=== PATIENT | female | born 1990 | race Caucasian/White ===

== ENCOUNTER 2017-02-05 11:00 | Inpatient (IN) | payer MEDICAID ==
[~2017-02-05 11:00] MED LIST: Cyanocobalamin (Vitamin B12) 1,000 MCG/ML SDV IM ONE; Glycopyrrolate 0.2 MG/ML 2 ML SDV IVPUSH ONE; Lactated Ringers 1,000 ML IV SCH; MVI, Adult with Vitamin K 10 ML, Thiamine 200 MG, Chromium/Copper/Mang/Selen/Zn 1 ML in... IV ONE; Meropenem 500 MG in Sodium Chloride 0.9% 50 ML IV ONE
[2017-02-05] MEDS ORDERED: Lactated Ringers 1,000 ML IV SCH (13:30)
[2017-02-05] MEDS ORDERED: Cyanocobalamin (Vitamin B12) 1,000 MCG/ML SDV IM ONE (13:30)
[2017-02-05] MEDS ORDERED: MVI, Adult with Vitamin K 10 ML, Thiamine 200 MG, Chromium/Copper/Mang/Selen/Zn 1 ML in... IV ONE ×4 (14:15)
[2017-02-05] MEDS ORDERED: Meropenem 500 MG in Sodium Chloride 0.9% 50 ML IV ONE (15:00)
[2017-02-05] MEDS ORDERED: Glycopyrrolate 0.2 MG/ML 2 ML SDV IVPUSH ONE (15:00)
[2017-02-05] MEDS ORDERED: Midazolam 1 MG/ML 2 ML SDV ONE (15:35)
[2017-02-05] MEDS ORDERED: fentaNYL 100 MCG/2 ML SDV ONE (15:35)
[2017-02-05] MEDS ORDERED: Propofol 200 MG/20 ML SDV ONE (15:35)
[2017-02-05] MEDS ORDERED: Albuterol/Ipratropium 3.0-0.5 MG/3 ML Neb Soln INH PRN (16:51)
[2017-02-05] MEDS: Pantoprazole 40 MG Vial IV SCH (17:57)
[2017-02-05] MEDS: Ondansetron 4 MG/2 ML SDV IV PRN (19:13)
[2017-02-05] MEDS ORDERED: Naloxone 0.4 MG/ML SDV IVPUSH PRN (20:19)
[2017-02-05] MEDS ORDERED: Zolpidem 5 MG Tab PO ONE (21:00)
[2017-02-05] MEDS: HYDROmorphone/Normal Saline 15 MG/30 ML PCA IV PRN (21:08)
[2017-02-05] MEDS: ClonazePAM 0.5 MG Tab PO SCH (21:08)
[2017-02-05] MEDS: Mirtazapine 15 MG Tab PO SCH (21:08)
[2017-02-05] MEDS: QUEtiapine 100 MG Tab PO SCH (21:08)
[2017-02-06] MEDS: Dextrose 5%-Lactated Ringers 1,000 ML IV SCH ×4 (00:40→22:55)
[2017-02-06] MEDS ORDERED: Naloxone 0.4 MG/ML SDV IV PRN (07:19)
[2017-02-06] MEDS ORDERED: Propofol 200 MG/20 ML SDV ONE (07:56)
[2017-02-06] MEDS ORDERED: Neostigmine Methylsulfate 1 MG/ML 5 ML Syringe ONE (07:56)
[2017-02-06] MEDS ORDERED: Dexamethasone 4 MG/ML SDV ONE (07:56)
[2017-02-06] MEDS ORDERED: Rocuronium 50 MG/5 ML Vial ONE ×2 (07:56→09:02)
[2017-02-06] MEDS ORDERED: Succinylcholine 200 MG/10 ML MDV ONE (07:56)
[2017-02-06] MEDS ORDERED: Glycopyrrolate 0.2 MG/ML 5 ML MDV ONE (07:56)
[2017-02-06] MEDS ORDERED: Ondansetron 4 MG/2 ML SDV ONE ×2 (07:56→21:51)
[2017-02-06] MEDS: ClonazePAM 0.5 MG Tab PO SCH ×3 (08:14→21:47)
[2017-02-06] MEDS ORDERED: Mirtazapine 15 MG Tab PO SCH (09:00)
[2017-02-06] MEDS ORDERED: Lactated Ringers 0 ML ONE (09:47)
--- NOTE | 2017-02-06 10:47 | HP ---
HISTORY: Gayathri had an EGD yesterday and she was a direct admit. She has a gastrogastric fistula. She had a laparoscopic partial gastrectomy on 08/21/2014. Her consult weight was 190.2, preop weight was 184, and her weight today is 118 pounds 6.4 ounces. Total weight loss of 71.8 pounds. Gayathri did have a partial gastrectomy on 08/21/2014 and due to change in her insurance, she had to switch to [facility] and was under the care of Dr. Dorsey. Gayathri was last seen at the [facility] on 08/21/2014. She states that she had two EGDs with dilatation, one in [place], and one in [place]. After the EGD in [place], she developed a perforation. She was sent to [facility] in [place], [place]. Dr. Dorsey patched the leak and she was discharged with TPN. She persisted to have problems with mid upper abdominal pain and nausea along with dysphagia. A CT scan on 12/25/2016 revealed a gastrogastric fistula. She had an EGD by Adelso Crane M.D. on 02/05/2017 and was directly admitted to the hospital for IV fluids and scheduled for surgery today 02/06/2017. CURRENT MEDICATIONS: Include Remeron 15 mg daily, Seroquel 25 mg 1-4 tabs at bedtime, Ambien 10 mg 0.5-1 tab at bedtime, Klonopin 0.5 one tablet three times a day, ferrous sulfate 325 mg by mouth twice a day, vitamin D 5000 international units a day, Nexplanon implant, Tums one tablet once a day, hydrocortisone 2.5% cream apply twice daily, Citrucel powder 1 tablespoon by mouth twice a day, Pepcid 40 mg per 5 mL, one 5 mL by mouth twice a day, Zofran 4 mg ODT every 8 hours p.r.n. nausea, multivitamin liquid twice a day, and ProAir inhaler 1-2 puffs into lungs every 4 hours. PAST MEDICAL HISTORY: 1. Adjustment disorder with mixed anxiety and depressed mood. 2. Bezoar. 3. Esophageal reflux. 4. Family history of hemochromatosis and she is a carrier. 5. Fibromyalgia. 6. Gastroparesis history. 7. History of chlamydia. 8. History of recurrent UTI. 9. Inappropriate sinus tachycardia. 10.Irritable bowel syndrome. 11.Polycystic ovary disease. 12.Suicide attempt. PAST SURGICAL HISTORY: 1. Abdominal exploratory, 05/24/2011. 2. Colonoscopy 10/09/2013. 3. EGDs x3, 06/06/2012, 04/17/2013, and 06/09/2011. 4. Gastric fundoplication 08/05/2009. 5. Gastroscopy with dilatation, 10/13/2014, 11/05/2014. 6. Laparoscopic cholecystectomy 05/20/2009. 7. Tarsal tunnel release on the left, 04/20/2012. 8. Tooth extraction 07/25/2010. SOCIAL HISTORY: , employed, non-applicable, and no children. FAMILY HISTORY: Mother, hypertension, diabetes, neuropathy, irritable bowel syndrome, and liver disease including hemochromatosis and cirrhosis. Paternal grandmother, colon cancer. Paternal uncle, leukemia. Maternal grandmother, cardiovascular disease and mother have a history of cardiovascular disease and a stroke. HABITS: Does not smoke. Drinks coffee or soda occasionally. No alcohol. REVIEW OF SYSTEMS: CONSTITUTIONAL: No fever or night sweats. She does feel tired, fatigued, generally weak, weight loss, and loss of appetite. SKIN: Negative for rashes or skin lesion. HEENT: Denies headaches, ear pain, loss of hearing, blurred or double vision, nasal discharge, or sore throat. CARDIOVASCULAR: She does have a history of inappropriate sinus tachycardia but no recent episodes. Denies any chest pain or palpitations. RESPIRATORY: Negative for cough or shortness of breath. ENDOCRINE: States her blood sugars have been in the 200s lately and she has been checking them when she feels funny. No history of polyuria, polydipsia, skin or hair changes, heat or cold intolerance. HEMATOLOGICAL: History of low ferritin. LYMPHATICS: Denies any lymph node tenderness or swelling. : History of polycystic ovary syndrome. MUSCULOSKELETAL: Joint and muscle pain. History of fibromyalgia. NEUROLOGICAL: No history of focal changes, spells, or memory changes. PSYCHIATRIC: Depression and history of suicide attempts. Review of systems negative for any other pertinent positives or negatives. DIET: Step 2-3 protein add adequate. Exercise none. Fluids about 24 ounces a day. Vitamins, take all of her vitamins except the B12 injections. OBJECTIVE: GENERAL: Gayathri is a pleasant 26-year-old female. VITAL SIGNS: Height is 5 feet 2 inches. Weight is 116 pounds. TPR is 98.6, 86, 18, blood pressure 97/60. HEENT: Negative. NECK: Supple. HEART: Regular rate and rhythm. LUNGS: Clear. ABDOMEN: Tenderness noted in the mid epigastric area. EXTREMITIES: Without edema. SKIN: Without rash. Hair is very thin. NEUROLOGIC: Cranial nerves 2 through 12 intact. MUSCULOSKELETAL: Deep tendon reflexes are 2+ and equal. PSYCHIATRIC: Mood and affect appropriate. Orientated x3 and memory intact. ASSESSMENT: 1. Gastrogastric fistula. 2. Partial gastrectomy. 3. Postoperative malabsorption. 4. Vitamin D deficiency. 5. Dysphagia. 6. Adjustment disorder with mixed anxiety and depression. 7. Carrier for hemochromatosis. 8. Fibromyalgia. 9. Irritable bowel syndrome. 10.Polycystic ovary syndrome. PLAN: Remain n.p.o. and she is scheduled for an exploratory laparoscopic, possible laparotomy with resection of gastrogastric fistula, general anesthesia. Date of surgery 02/06/2017. Adelso Crane M.D. Based on today's exam, patient is cleared for general anesthesia. Louisa Arora PA-C /[id number]
[2017-02-06] MEDS ORDERED: Meropenem 500 MG in Sodium Chloride 0.9% 50 ML IV ONE (11:00)
[2017-02-06] MEDS ORDERED: Albuterol/Ipratropium 3.0-0.5 MG/3 ML Neb Soln INH ONE (11:00)
--- NOTE | 2017-02-06 11:50 | OR ---
DATE OF PROCEDURE: 02/05/2017 PREOPERATIVE DIAGNOSIS: Recent bilious emesis associated with gastrogastric fistula. POSTOPERATIVE DIAGNOSIS: Recent bilious emesis associated with gastrogastric fistula. OPERATIVE PROCEDURE: Upper GI endoscopy. ANESTHESIA: IV sedation. INDICATIONS FOR PROCEDURE: The patient presents with some ongoing bilious emesis and dysphasia along with epigastric discomfort. She was noted recently to have a gastrogastric fistula both by CT scan and upper GI x-ray in [place] and presents today for further evaluation and a decision making regarding management options. Potential risks including bleeding and perforation were discussed, and the patient wishes to proceed. DETAILS OF PROCEDURE: The patient was taken to the operating room and placed in a left lateral decubitus position. IV sedation was administered, after which the upper GI endoscope was passed orally through the length of the esophagus and into the gastric pouch, from there through the gastrojejunostomy roughly 20 cm into the Lorna limb. The patient was noted to have normal hypopharynx, larynx, upper esophageal sphincter, and esophageal body. There was some bilious material within the distal most esophagus and gastric pouch, and a visible gastrogastric fistula was present somewhat proximal to the remained gastrojejunostomy. The scope was able to just barely pass through that into the remainder of the bypassed stomach. The orifice of this fistula was quite reddened, consistent with bile reflux. The scope was then withdrawn, the above findings reconfirmed, and the procedure concluded. There were no evident complications. Given the patient's degree of symptoms at this point, she will be admitted for resection of the gastrogastric fistula tomorrow. This will most likely be able to done laparoscopically. Adelso Crane MD /[id number]
[2017-02-06] MEDS ORDERED: Ketamine 500 MG/5 ML MDV IV SCH (12:00)
[2017-02-06] MEDS ORDERED: Lidocaine 0.4%/D5W 2 GM/500 ML BAG IV SCH (12:00)
[2017-02-06] MEDS ORDERED: Lidocaine 2% 100 MG/5 ML Syringe IVPUSH ONE (12:00)
[2017-02-06] MEDS ORDERED: Ropivacaine 26 ML, Dexamethasone 8 MG, EPINEPHrine 0.4 MG, Sodium Chloride 0.9% 51.6 ML NERVRT SCH ×4 (12:00)
[2017-02-06] MEDS ORDERED: Meropenem 500 MG SDV ONE (12:13)
[2017-02-06] MEDS ORDERED: Lactated Ringers 1,000 ML ONE ×2 (12:52)
[2017-02-06] MEDS ORDERED: Sugammadex Sodium 200 MG/2 ML VIAL ONE (13:35)
[2017-02-06] MEDS ORDERED: Albuterol/Ipratropium 3.0-0.5 MG/3 ML Neb Soln INH PRN (15:00)
[2017-02-06] MEDS ORDERED: hydrOXYzine HCl 100 MG/2 ML SDV IM PRN (15:00)
[2017-02-06] MEDS ORDERED: Labetalol 20 MG/4 ML Syringe IVPUSH PRN (15:00)
[2017-02-06] MEDS ORDERED: diphenhydrAMINE 50 MG/ML SDV IVPUSH PRN (15:00)
[2017-02-06] MEDS ORDERED: SCOPOLAMINE PATCH CHECK TOP SCH (15:00)
[2017-02-06] MEDS ORDERED: SCOPOLAMINE PATCH ASK TOP SCH (15:00)
[2017-02-06] MEDS: Albuterol/Ipratropium 3.0-0.5 MG/3 ML Neb Soln INH SCH ×2 (15:18→20:57)
[2017-02-06] MEDS: Ondansetron 4 MG/2 ML SDV IV PRN ×2 (15:18→21:52)
[2017-02-06] MEDS ORDERED: LORazepam 2 MG/ML MDV IVPUSH PRN (16:13)
[2017-02-06] MEDS: MVI, Adult with Vitamin K 10 ML, Thiamine 200 MG, Chromium/Copper/Mang/Selen/Zn 1 ML in... IV SCH ×4 (16:30)
[2017-02-06] MEDS: Acetaminophen 325 MG Tab PO SCH ×2 (16:51→21:37)
[2017-02-06] MEDS: Gabapentin 300 MG Cap PO SCH ×2 (16:51→21:38)
[2017-02-06] MEDS: Pantoprazole 40 MG Vial IV SCH (17:25)
[2017-02-06] MEDS: Meropenem 500 MG in Sodium Chloride 0.9% 50 ML IV SCH ×2 (17:29→22:55)
[2017-02-06] MEDS: Heparin Sodium 5,000 Units/ML Vial SUBCUT SCH (17:36)
[2017-02-06] MEDS ORDERED: Albuterol/Ipratropium 3.0-0.5 MG/3 ML Neb Soln ONE (20:56)
[2017-02-06] MEDS: QUEtiapine 100 MG Tab PO SCH (21:38)
[2017-02-06] MEDS: Mirtazapine 15 MG Tab PO SCH (21:38)
[2017-02-06] MEDS ORDERED: ClonazePAM 0.5 MG Tab ONE (21:46)
[2017-02-07] MEDS ORDERED: Iohexol 647 MG/ML 50 ML SDV PO STA (02:40)
[2017-02-07] MEDS: Acetaminophen 325 MG Tab PO SCH ×4 (05:03→21:54)
[2017-02-07] MEDS: Meropenem 500 MG in Sodium Chloride 0.9% 50 ML IV SCH (05:41)
[2017-02-07] MEDS: Gabapentin 300 MG Cap PO SCH (05:42)
[2017-02-07] MEDS: Heparin Sodium 5,000 Units/ML Vial SUBCUT SCH ×2 (05:43→17:07)
[2017-02-07] MEDS: Albuterol/Ipratropium 3.0-0.5 MG/3 ML Neb Soln INH SCH ×4 (07:22→21:54)
[2017-02-07] MEDS ORDERED: Dextrose 5%-Lactated Ringers 1,000 ML IV SCH (07:54)
[2017-02-07] MEDS: Celecoxib 200 MG Cap PO SCH (08:22)
[2017-02-07] MEDS: ClonazePAM 0.5 MG Tab PO SCH ×3 (08:24→21:54)
--- NOTE | 2017-02-07 08:32 | CR ---
Surgical drains. No contrast leakage.
--- NOTE | 2017-02-07 09:33 | PN ---
DATE OF SERVICE: 02/07/2017 SUBJECTIVE: Gayathri is postop day #1. Her vital signs have been stable. She had some nausea initially postoperatively. Her lidocaine was discontinued. She did well after that. She has been up and ambulated. REVIEW OF SYSTEMS: Remainder of review of systems negative for any pertinent positives and negatives. OBJECTIVE: GENERAL: Gayathri Capps is a pleasant 26-year-old female. She is alert and orientated. VITAL SIGNS: TPR 99.8, 124, 16, and blood pressure is 115/67. HEENT: Negative. NECK: Supple. HEART: Regular rate and rhythm. LUNGS: Clear. ABDOMEN: Dressings dry and intact. RENETTA drain is draining 150 mL for the past 24 hours of a light pink serosanguineous drainage. She does have some debris in the bulb, looks like tissue. EXTREMITIES: Without peripheral edema. ASSESSMENT: Diagnostic laparoscopy with partial gastrectomy with Lorna-en-Y gastrojejunostomy for resection of the gastrogastric fistula, for gastrogastric fistula with associated severe bile reflux and aspiration. Date of surgery 02/06/2017. PLAN: 1. Step-2 gastric bypass diet without cereal. 2. Discontinue gabapentin. 3. Decrease IV rate to 100 mL/hour. 4. Dressing off. 5. May shower. 6. We will evaluate p.r.n. or in a.m. Louisa Arora PA-C /[id number]
--- NOTE | 2017-02-07 11:06 | OR ---
DATE OF PROCEDURE: 02/06/2017 ADDENDUM: Physician educational assistant teacher, Louisa Arora, played an essential role in assisting in this case, helping to position the patient, retract structures as needed as well as suturing and cutting sutures as indicated. Her presence improved patient safety and decreased operative time. Adelso Crane MD /[id number]
--- NOTE | 2017-02-07 13:15 | OR ---
DATE OF PROCEDURE: 02/06/2017 PREOPERATIVE DIAGNOSES: Gastrogastric fistula with associated severe bile reflux and intermittent aspiration. POSTOPERATIVE DIAGNOSES: Gastrogastric fistula with associated severe bile reflux and intermittent aspiration. OPERATIVE PROCEDURES: Diagnostic laparoscopy with partial gastrectomy with Lorna-en-Y gastrojejunostomy for resection of gastrogastric fistula ([id number]). ANESTHESIA: General. CRIB PAD MAKER: Louisa Arora PA-C. INDICATIONS FOR PROCEDURE: This is a 26-year-old female presenting with increasingly symptomatic gastrogastric fistula. This has been confirmed by both upper GI endoscopy, as well as CT scan. Plan is to proceed with a diagnostic laparoscopy, laparotomy if necessary, and resection of the stomach. The patient has the fistula located just proximal to the gastrojejunostomy, and the plan will be to proceed with resection of that area, which will also require some visual reconstruction of the gastrojejunostomy. The potential risks including bleeding, infection, leaks from various GI tract closures, problems with bowel obstruction over time, as well as possibility of recurrence of the problem were reviewed, and also the patient has some propensity to having nausea and emesis, and it may not entirely eliminate that problem. DETAILS OF PROCEDURE: The patient was taken to the operating room and placed in a supine position. After general endotracheal anesthesia was induced, she was converted to a lithotomy position, and the abdomen was prepped and draped. Orogastric tube was placed, and using continuous ultrasound guidance, bilateral subcostal transversus abdominis plane blocks were placed using standard formula. At this point, the abdomen was entered at 15 cm inferior, 5 cm left of xiphoid process, the peritoneal cavity entered under direct vision with an Optiview trocar and inflated to 15 mmHg pressure with CO2. Laparoscope was then reinserted. No underlying trocar insertion site injuries were seen. Following this, 5 additional trocars were placed across the upper mid abdomen, and general exploration was undertaken. The patient had some loose adhesions between the area of the upper Lorna limb and gastrojejunostomy and somewhat denser adhesions along the upper aspect of the gastric pouch. At this point, to guide treatment, the orogastric tube was replaced with a 32-Maori Santi tube, which was passed orally per Anesthesia, through the gastric pouch and the Lorna limb several centimeters. This allowed stapling along the gastric pouch without causing over-narrowing during the subsequent resection. Additionally, the stomach was dissected into the lesser sac, somewhat to the left of the gastrojejunostomy. This then allowed division of the stomach up to the plane of the diaphragm. This then allowed upward mobility of the stomach as it lay up against the area of the gastric bypass. This was retracted upward and dissection then began along the edge of the gastric pouch with the SHAMIR black loads that were used for the remainder of the primary resection, being pulled up snugly against the Santi tube. This eventually resulted in resection of the remaining stomach adherent to the gastric bypass anatomy. This specimen was then delivered from the field. There was some question of some possible weakness of the gastrojejunostomy on the left aspect, and that area was then revised again with the Santi tube, that being present from the gastrojejunostomy into the Lonra limb to avoid over- tightening. This was done with two additional firings of the SHAMIR wiley, and the two specimens were then delivered from the field. At this point, fibrin sealant was placed along the gastric and small bowel staple lines and omentum applied up against the staple lines as well. The Santi tube was then removed without difficulty. At that point, no further problems were noted. The trocars were sequentially removed and a single Torito- Chacon drain was placed through the left lateral trocar site and positioned adjacent to the gastrojejunostomy and up into the splenic fossa. After the remaining trocars were removed, the fascia was closed with 0 Vicryl stitch of the left lateral trocar site and the skin was closed at each incision with 4-0 Vicryl skin stitch. Dressing was applied. The patient was taken to the recovery room in satisfactory condition. Adelso Crane MD /[id number]
[2017-02-07] MEDS: HYDROmorphone/Normal Saline 15 MG/30 ML PCA IV PRN (17:00)
[2017-02-07] MEDS: Pantoprazole 40 MG Tab.CR PO SCH (17:07)
[2017-02-07] MEDS: MVI, Adult with Vitamin K 10 ML, Thiamine 200 MG, Chromium/Copper/Mang/Selen/Zn 1 ML in... IV SCH ×4 (17:07)
--- NOTE | 2017-02-07 17:47 | PCM.CONS ---
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 She had an uneventful surgery but her postop course was complicated by persistent nausea and vomiting which has finally subsided. Starting about 6 PM yesterday she had a rise in her heart rate from the 80s/90s up into the 100 teens and as high as 130s at times. She has been asymptomatic with this and does not report dizziness , lightheadedness, shortness of breath or chest pain. Her abdominal pain has been well-controlled throughout the day today. She does not feel anxious. She reports a history of similar problems around times of stress. She has been evaluated by a color stripper who felt that no additional medication was needed as these episodes resolve on their own. She has not had recent difficulties with palpitations or tachycardia. There is no evidence for infection at this time. Epigastric Pain Score (Numeric/FACES): 9 Abdomen Pain Score (Numeric/FACES): 6 - Related Data Allergies/Adverse Reactions: Allergies Allergy/AdvReac Type Severity Reaction Status Date / Time amoxicillin [Amoxicillin] Allergy Unknown Rash Verified 05/27/16 16:41 Penicillins Allergy Unknown Rash Verified 05/27/16 16:41 Aminoglycosides Allergy Cannot Verified 02/02/17 09:39 Remember levofloxacin Allergy Rash Verified 05/27/16 16:41 metoclopramide [From Reglan] Allergy Cannot Verified 02/02/17 09:39 Remember prochlorperazine edisylate AdvReac Intermediate Tachycardia Verified 05/27/16 16 :41 [From Compazine] prochlorperazine maleate AdvReac Intermediate Tachycardia Verified 05/27/16 16: 41 [From Compazine] cephalexin monohydrate AdvReac Unknown Vomiting Verified 05/27/16 16:41 [From Keflex] erythromycin base AdvReac Unknown Abdominal Verified 05/27/16 16:41 [Erythromycin Base] Pain Home Medications: Home Meds Ondansetron HCl [Ondansetron] 4 mg PO Q8HR PRN 02/20/13 [History] Albuterol Sulfate [Proair Hfa] 2 puff IH Q4H PRN 04/16/13 [History] clonazePAM [Klonopin] 0.5 mg PO TID PRN 08/14/14 [History] Calcium Citrate/Vitamin D3 [Calcium Citrate - Vit D Caplet] 1 tab PO BID [History] Cyanocobalamin (Vitamin B12) [Vitamin B12] 1,000 mcg SL DAILY 11/04/14 [History] Multivitamin with Minerals [Multiple Vitamin] 1 tab PO BID 11/04/14 [History] Vitamin B Complex [B Complex] 1 tab PO DAILY 01/29/15 [History] Etonogestrel [Nexplanon] 1 dose SQ ASDIRECTED 03/31/16 [History] Zolpidem [Ambien] 10 mg PO BEDTIME 03/31/16 [History] Famotidine 40 mg PO DAILY #14 tablet 05/27/16 [Rx] Calcium Carbonate [Tums] 500 mg PO DAILY 02/02/17 [History] Cholecalciferol (Vitamin D3) [Vitamin D3] 5,000 units PO DAILY 02/02/17 [History ] Ferrous Sulfate 325 mg PO BID 02/02/17 [History] Hydrocortisone [Hydrocortisone 2.5% Crm] 1 applic TOP BID PRN 02/02/17 [History] Methylcellulose (with Sugar) [Citrucel] 1 tbsp PO BID 02/02/17 [History] Mirtazapine [Remeron] 7.5 - 15 mg PO BID 02/02/17 [History] QUEtiapine [SEROquel] 25 - 100 ng PO BEDTIME 02/02/17 [History] Past Medical History HEENT History: Reports: Allergic Rhinitis, Other (See Below) Other HEENT History: enlarged optic nerve Cardiovascular History: Reports: Arrhythmia, Other (See Below) Other Cardiovascular History: tachycardia; PVC's Respiratory History: Reports: Asthma, Sleep Apnea Gastrointestinal History: Reports: Colon Polyp, Hemorrhoids, Hiatal Hernia, Pancreatitis, Other (See Below) Other Gastrointestinal History: ulcers Genitourinary History: Reports: Renal Calculus, Retention, Urinary, Other (See Below) Other Genitourinary History: PCOS PROJECT HIRE History: Reports: Polycystic Ovaries Musculoskeletal History: Reports: Fracture, Fibromyalgia Neurological History: Reports: Concussion Psychiatric History: Reports: Anxiety, Depression, Psych Hospitalization(s), PTSD, Suicide Attempt, Other (See Below) Other Psychiatric History: mooddisorder unclasified Endocrine/Metabolic History: Reports: Vitamin D Deficiency, Other (See Below) Other Endocrine/Metabolic History: hypoglycemia Hematologic History: Reports: B12 Deficiency, Iron Deficiency Dermatologic History: Reports: Other (See Below) Other Dermatologic History: skin rashes and acne; abdnormal moles - Infectious Disease History Infectious Disease History: Reports: Chicken Pox, Influenza - Past Surgical History HEENT Surgical History: Reports: None Cardiovascular Surgical History: Reports: Other (See Below) Other Cardiovascular Surgeries/Procedures: ECHO Respiratory Surgical History: Reports: None GI Surgical History: Reports: Bariatric Procedure, Cholecystectomy, Colonoscopy , EGD, Esophageal Dilatation, Hernia Repair/Other, Felix Fundoplication, Polypectomy, Other (See Below) Female Surgical History: Reports: None Endocrine Surgical History: Reports: None Neurological Surgical History: Reports: None Musculoskeletal Surgical History: Reports: None Dermatological Surgical History: Reports: Skin Biopsy Social & Family History - Family History Cardiac: Reports: CAD Endocrine/Metabolic: Reports: Diabetes, type II - Tobacco Use Smoking Status *Q: Former Smoker Years of Tobacco use: 5 Packs/Tins Daily: 0.3 Used Tobacco, but Quit: No Month Tobacco Last Used: 08/2016 Second Hand Smoke Exposure: No - Caffeine Use Caffeine Use: Reports: Soda - Alcohol Use Days Per Week of Alcohol Use: 0 Number of Drinks Per Day: 1 Total Drinks Per Week: 0 - Recreational Drug Use Recreational Drug Use: No H&P Review of Systems - Review of Systems: Review Of Systems: See Below Free Text/Narrative: A complete 12 point review of systems was obtained. Pertinent positives and negatives are noted in the history of present illness. All other systems were reviewed and were negative except as noted. Exam - Exam Exam: See Below - Vital Signs Vital Signs: Last Vital Signs Temp 38.1 C 02/07/17 16:21 Pulse 115 H 02/07/17 16:21 Resp 20 02/07/17 16:21 BP 106/64 02/07/17 16:21 Pulse Ox 97 02/07/17 16:21 Weight: 52.889 kg - Exam Quality Assessment: No: Supplemental Oxygen General: Alert, Oriented, Cooperative. No: Mild Distress HEENT: Conjunctiva Clear, Mucosa Moist & [place]. No: Scleral Icterus Neck: Supple, Trachea Midline Lungs: Clear to Auscultation, Normal Respiratory Effort Cardiovascular: Regular Rhythm, Tachycardia. No: Systolic Murmur GI/Abdominal Exam: Soft, No Distention Back Exam: Full Range of Motion. No: Muscle Spasm Extremities: Normal Inspection, No Pedal Edema. No: Increased Warmth Peripheral Pulses: 2+: Dorsalis Pedis (L), Dorsalis Pedis (R) Skin: Warm, Dry, Intact Neuro Extensive - Mental Status: Alert, Oriented x3, Nl Response to Commands Neuro Extensive - Motor, Sensory, Reflexes: CN II-XII Intact. No: Dysarthria, Abnormal Motor, Tremor Psychiatric: Alert, Normal Affect - Patient Data Imaging Impressions Last 24 hrs: EKG - images personally reviewed - sinus tachycardia with heart rate in the 110' s. No acute ischemic changes Consult PN Assessment/Plan POD#: 2 Procedures: Procedures ASSAY OF ACETAMINOPHEN (07/03/13) ASSAY OF AMYLASE (03/31/16) ASSAY OF CK (CPK) (09/12/13) ASSAY OF DIGOXIN TOTAL (07/03/13) ASSAY OF ETHANOL (07/03/13) ASSAY OF LACTIC ACID (08/14/14) ASSAY OF LIPASE (05/27/16) ASSAY OF PHOSPHORUS (10/13/14) ASSAY OF SALICYLATE (07/03/13) ASSAY OF TROPONIN QUANT (09/12/13) ASSAY THYROID STIM HORMONE (08/05/13) BLOOD CULTURE FOR BACTERIA (01/28/13) C-REACTIVE PROTEIN (05/27/16) CHEST X-RAY 2VW FRONTAL&LATL (08/05/13) CHORIONIC GONADOTROPIN ASSAY (08/20/13) COLONOSCOPY AND BIOPSY (10/09/13) COMPLETE CBC AUTOMATED (05/27/16) COMPLETE CBC W/AUTO DIFF WBC (03/31/16) COMPREHEN METABOLIC PANEL (05/27/16) CT ABD & PELV W/CONTRAST (03/31/16) EGD BIOPSY SINGLE/MULTIPLE (04/17/13) EGD DILATE STRICTURE (11/05/14) ELECTROCARDIOGRAM REPORT (07/03/13) ELECTROCARDIOGRAM TRACING (09/12/13) EMERGENCY DEPT VISIT (05/27/16) EMERGENCY DEPT VISIT (03/31/16) EMERGENCY DEPT VISIT (10/13/14) EMERGENCY DEPT VISIT (10/13/14) EMERGENCY DEPT VISIT (08/28/14) EMERGENCY DEPT VISIT (08/28/14) EMERGENCY DEPT VISIT (08/14/14) EMERGENCY DEPT VISIT (08/14/14) EMERGENCY DEPT VISIT (06/25/14) EMERGENCY DEPT VISIT (06/25/14) EMERGENCY DEPT VISIT (04/08/14) EMERGENCY DEPT VISIT (10/17/13) EMERGENCY DEPT VISIT (10/10/13) EMERGENCY DEPT VISIT (09/12/13) EMERGENCY DEPT VISIT (08/19/13) EMERGENCY DEPT VISIT (08/19/13) EMERGENCY DEPT VISIT (08/05/13) EMERGENCY DEPT VISIT (07/03/13) EMERGENCY DEPT VISIT (02/20/13) FIBRIN DEGRADATION QUANT (02/20/13) HYDRATE IV INFUSION ADD-ON (03/31/16) HYDRATION IV INFUSION INIT (08/28/14) INITIAL OBSERVATION CARE (07/03/13) METABOLIC PANEL TOTAL CA (10/13/14) OBSERVATION CARE DISCHARGE (07/03/13) POLYSOM 6/> YRS 4/> ARLETTE (06/25/13) POLYSOM 6/>YRS CPAP 4/> PARM (07/27/13) PPSV23 VACC 2 YRS+ SUBQ/IM (07/03/13) ROUTINE VENIPUNCTURE (05/27/16) THER/PROPH/DIAG INJ IV PUSH (05/27/16) THER/PROPH/DIAG INJ SC/IM (05/04/14) THER/PROPH/DIAG IV INF ADDON (10/13/14) THER/PROPH/DIAG IV INF INIT (10/13/14) TISSUE EXAM BY PATHOLOGIST (04/17/13) TTE W/DOPPLER COMPLETE (04/27/14) TX/PRO/DX INJ NEW DRUG ADDON (03/31/16) URINALYSIS AUTO W/SCOPE (03/31/16) URINE BACTERIA CULTURE (05/04/14) URINE CULTURE/COLONY COUNT (10/13/14) URINE TEST (08/14/14) X-RAY EXAM OF ABDOMEN (10/10/13) X-RAY EXAM SERIES ABDOMEN (03/31/16) (1) Sinus tachycardia SNOMED Code(s): 51174830 Code(s): R00.0 - TACHYCARDIA, UNSPECIFIED Current Visit: Yes Problem List Initiated/Reviewed/Updated: Yes My Orders Last 24 Hours: My Active Orders 02/07/17 17:40 EKG Documentation Completion [RC] ASDIRECTED EKG 12 Lead [EK] Urgent 02/08/17 05:00 BASIC METABOLIC PANEL,BMP [CHEM] Timed CBC WITH AUTO DIFF [HEME] Timed MAGNESIUM [CHEM] Timed TSH ULTRASENSITIVE [CHEM] Timed Plan: ASSESSMENT AND PLAN - 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 -Postop cares per surgical team Sinus tachycardia - persistent for approximately 24 hours. Patient is asymptomatic. Other vital signs are stable. No evidence for infection. History of similar episodes thought to be stress related. This has resolved on its own and did not improve with beta joycelyn use in the past. One status appears appropriate. Pain is well-controlled. She is not anxious. -Continue cardiac monitoring -No obvious indication for rate slowing at this time -Monitor for evidence of infection or new pulmonary symptoms -Labs in the morning Beck Bloom M.D. Requesting Provider: Louisa Arora Date Consult Requested: 02/07/17 Reason for Consult: sinus tachycardia Patient History Reviewed: Yes Admission H&P Reviewed: Yes Notified Requestor: No Time Spent (in minutes): 40
[2017-02-07] MEDS: Mirtazapine 15 MG Tab PO SCH (21:54)
[2017-02-07] MEDS: QUEtiapine 100 MG Tab PO SCH (21:54)
[2017-02-08] MEDS: Acetaminophen 325 MG Tab PO SCH ×4 (04:19→21:05)
[2017-02-08] MEDS: Heparin Sodium 5,000 Units/ML Vial SUBCUT SCH ×2 (05:38→18:01)
[2017-02-08] MEDS ORDERED: Magnesium Sulfate/Water 2 GM in Premix Bag 1 BAG IV SCH (06:30)
[2017-02-08] MEDS ORDERED: Potassium Chloride 20 MEQ, Lidocaine 1% 2 ML in Sodium Chloride 0.9% 100 ML IV SCH (06:30)
[2017-02-08] MEDS ORDERED: Dextrose 5%-Lactated Ringers 1,000 ML IV SCH (07:15)
[2017-02-08] MEDS: Albuterol/Ipratropium 3.0-0.5 MG/3 ML Neb Soln INH SCH ×2 (07:22→10:55)
[2017-02-08] MEDS ORDERED: Magnesium Hydroxide 400 MG/5 ML Susp 30 ML Cup PO ONE ×2 (08:00→17:00)
[2017-02-08] MEDS: Celecoxib 200 MG Cap PO SCH (08:09)
[2017-02-08] MEDS: Acetaminophen/HYDROcodone 325-5 MG Tab PO PRN ×3 (08:38→22:27)
[2017-02-08] MEDS: Potassium Chloride 20 MEQ, Lidocaine 1% 2 ML in Sodium Chloride 0.9% 100 ML IV SCH ×3 (08:39→12:55)
[2017-02-08] MEDS: ClonazePAM 0.5 MG Tab PO SCH ×3 (08:45→21:04)
[2017-02-08] MEDS ORDERED: Bisacodyl 5 MG Tab PO ONE (09:00)
[2017-02-08] MEDS ORDERED: Cyanocobalamin (Vitamin B12) 1,000 MCG/ML SDV IM ONE (09:00)
--- NOTE | 2017-02-08 10:57 | PN ---
DATE OF SERVICE: 02/08/2017 SUBJECTIVE: Gayathri is postop day 2. She is tolerating her diet well. She did have tachycardia yesterday into the 140s. Beck Bloom MD, hospitalist, did evaluate with a history of inappropriate sinus tachycardia, and it was last evaluated in 2013. It was appropriate to seek an Internal Medicine consultation. EKG was negative. Hemoglobin this morning is 9. Oral intake at 1,130 mL. Vital signs have been stable with the exception of the tachycardia, which of note she was completely asymptomatic. RENETTA drain put out a total of 90 mL of a pink serous drainage. Activity has been good. Remainder of review of systems is negative for any pertinent positives or negatives. This morning, her potassium was 3.5, and magnesium was 1.6. OBJECTIVE: GENERAL: Gayathri Capps is a 26-year-old female. She is alert and orientated. VITAL SIGNS: TPR is 99, 125, 20, and blood pressure 98/59. HEENT: Negative. NECK: Supple. HEART: Regular rate and rhythm. LUNGS: Clear. ABDOMEN: Dressings dry and intact. RENETTA drain intact. EXTREMITIES: Without peripheral edema. ASSESSMENT: 1. 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 Date of surgery, 02/06/2017. 2. Upper GI endoscopy, recent bilious emesis associated with gastrogastric fistula, date 02/05/2017. PLAN: 1. KCl 60 mEq with lidocaine in 3 divided doses. 2. Magnesium 2 g IV q.6 hours. 3. Discontinue FRUIT CANNER. 4. Discontinue continuous pulse oximetry. 5. Discontinue telemetry. 6. Linn 5/325 mg 1 to 2 every 4 hours p.r.n. pain. 7. Milk of magnesia 30 mL now. 8. Dulcolax tablet 20 mg 1 hour after milk of magnesia. 9. IV decreased to TKO. 10.Good pulmonary toilet encouraged. 11.We will evaluate p.r.n. or in a.m. 12.Plan discharge in a.m. Louisa Arora PA-C /[id number]
--- NOTE | 2017-02-08 11:11 | PCM.CONSN ---
- General Info Date of Service: 02/08/17 Functional Status: Reports: Pain Controlled, Tolerating Diet, Ambulating - Review of Systems General: Denies: Weakness Cardiovascular: Denies: Chest Pain, Palpitations Systems Review Comment:: No acute events overnight. Patient feels well with minimal abdominal pain. No fevers. Up and walking around. No chest pain, palpitations or shortness of breath. - Patient Data Vitals - Most Recent: Last Vital Signs Temp 37.2 C 02/08/17 08:12 Pulse 104 H 02/08/17 10:55 Resp 20 02/08/17 08:12 BP 98/59 L 02/08/17 08:12 Pulse Ox 98 02/08/17 10:55 Weight - Most Recent: 52.889 kg I&O - Last 24 Hours: Intake & Output 02/07/17 02/08/17 02/08/17 22:59 06:59 14:59 Intake Total 1877 1327 Output Total 1400 590 Balance 477 737 Lab Results Last 24 Hours: Laboratory Results - last 24 hr 02/08/17 02/08/17 Range/Units 04:45 04:45 WBC 10.0 (4.5-11.0) K/uL RBC 2.98 L (3.30-5.50) M/uL Hgb 9.0 L D (12.0-15.0) g/dL Hct 27.4 L (36.0-48.0) % MCV 92 (80-98) fL MCH 30 (27-31) pg MCHC 33 (32-36) % Plt Count 211 (150-400) K/uL Neut % (Auto) 73 H (36-66) % Lymph % (Auto) 16 L (24-44) % [place] % (Auto) 11 H (2-6) % Eos % (Auto) 1 L (2-4) % Baso % (Auto) 0 (0-1) % Sodium 141 (140-148) mmol/L Potassium 3.5 L (3.6-5.2) mmol/L Chloride 108 (100-108) mmol/L Carbon Dioxide 29 (21-32) mmol/L Anion Gap 7.5 (5.0-14.0) mmol/L BUN 4 L D (7-18) mg/dL Creatinine 0.5 L (0.6-1.0) mg/dL Est Cr Clr Drug Dosing 134.86 mL/min Estimated GFR (MDRD) > 60 (>60) Glucose 87 (74-106) mg/dL Calcium 8.4 L (8.5-10.1) mg/dL Magnesium 1.6 L (1.8-2.4) mg/dL TSH, Ultra Sensitive 1.342 (0.358-3.740) uIU/mL Med Orders - Current: Current Medications Acetaminophen (Tylenol) 650 mg PO Q6H [facility] Last Admin: 02/08/17 09:02 Dose: 650 mg Hydrocodone Bitart/Acetaminophen ([place] 325-5 Mg) 1 - 2 tab PO Q4H PRN PRN Reason: Pain Last Admin: 02/08/17 08:38 Dose: 2 tab Albuterol/Ipratropium (Duoneb 3.0-0.5 Mg/3 Ml) 3 ml INH QIDRT [facility] Last Admin: 02/08/17 10:55 Dose: 3 ml Celecoxib (Celebrex) 200 mg PO DAILY@0800 [facility] Last Admin: 02/08/17 08:09 Dose: 200 mg Clonazepam (Klonopin) 0.5 mg PO TID [facility] Last Admin: 02/08/17 08:45 Dose: 0.5 mg Diphenhydramine HCl (Benadryl) 25 - 50 mg IVPUSH Q4H PRN PRN Reason: ITCHING Heparin Sodium (Porcine) (Heparin Sodium) 5,000 units SUBCUT Q12H [facility] Last Admin: 02/08/17 05:38 Dose: 5,000 units Hydroxyzine HCl (Vistaril) 75 - 100 mg IM Q4H PRN PRN Reason: PAIN UNCONTROLLED BY LIDOCAINE Last Admin: 02/06/17 18:05 Dose: 100 mg Dextrose/Lactated Ringer's (Dextrose 5%-Lactated Ringers) 1,000 mls @ 100 mls/ hr IV ASDIRECTED [facility] Last Admin: 02/08/17 08:57 Dose: 100 mls/hr Magnesium Sulfate 2 gm/ Sodium (Chloride) 54 mls @ 27 mls/hr IV Q6H [facility] Stop: 02/11/17 04:29 Last Admin: 02/08/17 08:39 Dose: 27 mls/hr Dextrose/Lactated Ringer's (Dextrose 5%-Lactated Ringers) 1,000 mls @ 75 mls/ hr IV ASDIRECTED [facility] Potassium Chloride 20 meq/Lidocaine HCl 2 ml/ Sodium Chloride 112 mls @ 55 mls/ hr IV Q2H [facility] Stop: 02/08/17 14:29 Last Admin: 02/08/17 08:39 Dose: 55 mls/hr Multivitamins/Minerals 10 ml/Thiamine HCl 200 mg/ Chromium/Copper/Manganese/ Seleni/Zn 1 ml/ Dextrose/Lactated Ringer's 1,013 mls @ 75 mls/hr IV DAILY@1600 [facility] Labetalol HCl (Normodyne) 5 - 15 mg IVPUSH Q1H PRN PRN Reason: SBP over 160 OR DBP over 95 Lorazepam (Ativan) 0.5 - 1 mg IVPUSH Q2H PRN PRN Reason: Nausea/Vomiting Last Admin: 02/06/17 16:30 Dose: 0.5 mg Mirtazapine (Remeron) 15 mg PO BEDTIME [facility] Last Admin: 02/07/17 21:54 Dose: 15 mg Naloxone HCl (Narcan) 0.1 mg IV ASDIRECTED PRN PRN Reason: decreased respiratory rate Ondansetron HCl (Zofran) 4 mg IV Q4H PRN PRN Reason: N/V Last Admin: 02/06/17 21:52 Dose: 4 mg Pantoprazole Sodium (Protonix) 40 mg PO Q24H [facility] Last Admin: 02/07/17 17:07 Dose: 40 mg Quetiapine Fumarate (Seroquel) 100 mg PO BEDTIME [facility] Last Admin: 02/07/17 21:54 Dose: 100 mg Discontinued Medications Albuterol/Ipratropium (Duoneb 3.0-0.5 Mg/3 Ml) 3 ml INH Q4H PRN PRN Reason: Shortness of Breath Albuterol/Ipratropium (Duoneb 3.0-0.5 Mg/3 Ml) 3 ml INH ONCALL ONE Stop: 02/06/17 11:01 Last Admin: 02/06/17 11:37 Dose: 3 ml Albuterol/Ipratropium (Duoneb 3.0-0.5 Mg/3 Ml) 3 ml INH ASDIRECTED PRN PRN Reason: BREATHING Albuterol/Ipratropium (Duoneb 3.0-0.5 Mg/3 Ml) Confirm Administered Dose 3 ml .ROUTE .STK-MED ONE Stop: 02/06/17 20:57 Last Admin: 02/07/17 10:58 Dose: Not Given Bisacodyl (Dulcolax) 20 mg PO ONETIME ONE Stop: 02/08/17 09:01 Last Admin: 02/08/17 08:46 Dose: 20 mg Clonazepam (Klonopin) Confirm Administered Dose 0.5 mg .ROUTE .STK-MED ONE Stop: 02/06/17 21:47 Last Admin: 02/07/17 18:45 Dose: Not Given Ropivacaine 26 ml/Dexamethasone 8 mg/Epinephrine HCl 0.4 mg/ Sodium Chloride 51.6 ml 0 ml NERVRT ASDIRECTED [facility] Cyanocobalamin (Vitamin B12) 1,000 mcg IM ONETIME ONE Stop: 02/05/17 08:31 Last Admin: 02/05/17 15:50 Dose: 1,000 mcg Cyanocobalamin (Vitamin B12) 1,000 mcg IM ONETIME ONE Stop: 02/05/17 13:31 Last Admin: 02/05/17 16:00 Dose: 1,000 mcg Cyanocobalamin (Vitamin B12) 1,000 mcg IM ONETIME ONE Stop: 02/08/17 09:01 Last Admin: 02/08/17 08:45 Dose: 1,000 mcg Dexamethasone (Dexamethasone) Confirm Administered Dose 4 mg .ROUTE .STK-MED ONE Stop: 02/06/17 07:57 Fentanyl (Sublimaze) Confirm Administered Dose 100 mcg .ROUTE .STK-MED ONE Stop: 02/05/17 15:36 Fentanyl Citrate (Fentanyl) Confirm Administered Dose 500 mcg .ROUTE .STK-MED ONE Stop: 02/06/17 07:58 Gabapentin (Neurontin) 300 mg PO QID [facility] Last Admin: 02/07/17 05:42 Dose: Not Given Glycopyrrolate (Glycopyrrolate) 0.4 mg IVPUSH ONETIME ONE Stop: 02/05/17 08:46 Last Admin: 02/05/17 15:42 Dose: 0.4 mg Glycopyrrolate (Glycopyrrolate) 0.4 mg IVPUSH ONETIME ONE Stop: 02/05/17 15:01 Last Admin: 02/05/17 16:00 Dose: 0.4 mg Glycopyrrolate (Robinul) Confirm Administered Dose 1 mg .ROUTE .STK-MED ONE Stop: 02/06/17 07:57 Hydromorphone HCl (Dilaudid [employer] 15 Mg In Ns 30 Ml) 0 mg IV ASDIRECTED PRN; Protocol PRN Reason: Pain Last Admin: 02/07/17 17:00 Dose: 15 mg Meropenem 500 mg/ Sodium (Chloride) 50 mls @ 100 mls/hr IV ONETIME ONE Stop: 02/05/17 09:29 Last Admin: 02/05/17 18:00 Dose: Not Given Lactated Ringer's (Ringers, Lactated) 1,000 mls @ 999 mls/hr IV ASDIRECTED [facility] Last Admin: 02/05/17 13:15 Dose: 999 mls/hr Multivitamins/Minerals 10 ml/Thiamine HCl 200 mg/ Chromium/Copper/Manganese/ Seleni/Zn 1 ml/ Lactated Ringer's 1,013 mls @ 500 mls/hr IV ONETIME ONE Stop: 02/05/17 16:16 Last Admin: 02/05/17 14:21 Dose: 500 mls/hr Meropenem 500 mg/ Sodium (Chloride) 50 mls @ 100 mls/hr IV ONETIME ONE Stop: 02/05/17 15:29 Last Admin: 02/05/17 18:26 Dose: Not Given Dextrose/Lactated Ringer's (Dextrose 5%-Lactated Ringers) 1,000 mls @ 125 mls/ hr IV ASDIRECTED [facility] Last Admin: 02/06/17 08:20 Dose: 125 mls/hr Meropenem 500 mg/ Sodium (Chloride) 50 mls @ 100 mls/hr IV ONETIME ONE Stop: 02/06/17 11:29 Last Admin: 02/06/17 11:37 Dose: 100 mls/hr Lactated Ringer's (Ringers, Lactated) Confirm Administered Dose 1,000 mls @ as directed .ROUTE .STK-MED ONE Stop: 02/06/17 09:48 Lidocaine HCl/Dextrose (Lidocaine 2 Gm/D5w 500 Ml) 2 gm in 500 mls @ 30 mls/hr IV .[id number] [facility] PRN Reason: 2 MG/MIN Stop: 02/07/17 13:00 Last Admin: 02/06/17 14:46 Dose: 2 mg/min, 30 mls/hr Ketamine HCl 100 mg/ Sodium (Chloride) 100 mls @ 15 mls/hr IV ASDIRECTED [facility] Lactated Ringer's (Ringers, Lactated) Confirm Administered Dose 1,000 mls @ as directed .ROUTE .STK-MED ONE Stop: 02/06/17 12:53 Lactated Ringer's (Ringers, Lactated) Confirm Administered Dose 1,000 mls @ as directed .ROUTE .STK-MED ONE Stop: 02/06/17 12:53 Dextrose/Lactated Ringer's (Dextrose 5%-Lactated Ringers) 1,000 mls @ 175 mls/ hr IV ASDIRECTED [facility] Last Infusion: 02/06/17 22:55 Dose: Infused Multivitamins/Minerals 10 ml/Thiamine HCl 200 mg/ Chromium/Copper/Manganese/ Seleni/Zn 1 ml/ Dextrose/Lactated Ringer's 1,013 mls @ 175 mls/hr IV DAILY@ 1600 [facility] Last Admin: 02/07/17 17:07 Dose: 175 mls/hr Meropenem 500 mg/ Sodium (Chloride) 50 mls @ 100 mls/hr IV Q6H [facility] Stop: 02/07/17 05:59 Last Admin: 02/07/17 05:41 Dose: 100 mls/hr Iohexol (Omnipaque-300) 50 ml PO .ASDIRECTED [facility] Stop: 02/07/17 02:41 Last Admin: 02/07/17 02:54 Dose: 50 ml Ketamine HCl (Ketalar) 25 mg IV ASDIRECTED [facility] Lidocaine HCl (Xylocaine 2%) 75 mg IVPUSH ONETIME ONE Stop: 02/06/17 12:01 Last Admin: 02/06/17 14:46 Dose: Not Given Magnesium Hydroxide (Milk Of Magnesia) 30 ml PO ONETIME ONE Stop: 02/08/17 08:01 Last Admin: 02/08/17 08:07 Dose: 30 ml Meropenem (Merrem) Confirm Administered Dose 500 mg .ROUTE .STK-MED ONE Stop: 02/06/17 12:14 Last Admin: 02/06/17 12:47 Dose: 500 mg Midazolam HCl (Versed 1 Mg/Ml) Confirm Administered Dose 2 mg .ROUTE .STK-MED ONE Stop: 02/05/17 15:36 Mirtazapine (Remeron) 7.5 mg PO DAILY [facility] Last Admin: 02/06/17 08:14 Dose: 7.5 mg Neostigmine Methylsulfate (Neostigmine) Confirm Administered Dose 5 mg .ROUTE .STK-MED ONE Stop: 02/06/17 07:57 Scopolamine Patch (Check) 1 each TOP DAILY [facility] Ondansetron HCl (Zofran) Confirm Administered Dose 4 mg .ROUTE .STK-MED ONE Stop: 02/06/17 07:57 Ondansetron HCl (Zofran) Confirm Administered Dose 4 mg .ROUTE .STK-MED ONE Stop: 02/06/17 21:52 Last Admin: 02/07/17 18:45 Dose: Not Given Pantoprazole Sodium (Protonix Iv) 40 mg IV Q24H [facility] Last Admin: 02/06/17 17:25 Dose: 40 mg Propofol (Diprivan 20 Ml) Confirm Administered Dose 200 mg .ROUTE .STK-MED ONE Stop: 02/05/17 15:36 Propofol (Diprivan 20 Ml) Confirm Administered Dose 200 mg .ROUTE .STK-MED ONE Stop: 02/06/17 07:57 Rocuronium [place] (Zemuron) Confirm Administered Dose 50 mg .ROUTE .STK-MED ONE Stop: 02/06/17 07:57 Rocuronium [place] (Zemuron) Confirm Administered Dose 50 mg .ROUTE .STK-MED ONE Stop: 02/06/17 09:03 Scopolamine (Transderm-Scop) 1.5 mg TOP ASDIRECTED [facility] Stop: 02/09/17 16:00 Sodium Chloride (Normal Saline) 500 ml IRR .STK-MED ONE Stop: 02/06/17 12:48 Last Admin: 02/06/17 12:47 Dose: 500 ml Succinylcholine Chloride (Quelicin) Confirm Administered Dose 200 mg .ROUTE .STK -MED ONE Stop: 02/06/17 07:57 Zolpidem Tartrate (Ambien) 10 mg PO ONETIME ONE Stop: 02/05/17 21:01 Last Admin: 02/05/17 21:08 Dose: 10 mg - Exam Quality Assessment: No: Supplemental Oxygen General: Alert, Oriented, Cooperative, No Acute Distress Neck: Supple Lungs: Normal Respiratory Effort Cardiovascular: Regular Rhythm, Tachycardia GI/Abdominal Exam: Soft, No Distention Extremities: Normal Inspection, No Pedal Edema Skin: Warm, Dry Psy/Mental Status: Alert, Normal Affect Consult PN Assessment/Plan POD#: 3 Procedures: Procedures ASSAY OF ACETAMINOPHEN (07/03/13) ASSAY OF AMYLASE (03/31/16) ASSAY OF CK (CPK) (09/12/13) ASSAY OF DIGOXIN TOTAL (07/03/13) ASSAY OF ETHANOL (07/03/13) ASSAY OF LACTIC ACID (08/14/14) ASSAY OF LIPASE (05/27/16) ASSAY OF PHOSPHORUS (10/13/14) ASSAY OF SALICYLATE (07/03/13) ASSAY OF TROPONIN QUANT (09/12/13) ASSAY THYROID STIM HORMONE (08/05/13) BLOOD CULTURE FOR BACTERIA (01/28/13) C-REACTIVE PROTEIN (05/27/16) CHEST X-RAY 2VW FRONTAL&LATL (08/05/13) CHORIONIC GONADOTROPIN ASSAY (08/20/13) COLONOSCOPY AND BIOPSY (10/09/13) COMPLETE CBC AUTOMATED (05/27/16) COMPLETE CBC W/AUTO DIFF WBC (03/31/16) COMPREHEN METABOLIC PANEL (05/27/16) CT ABD & PELV W/CONTRAST (03/31/16) EGD BIOPSY SINGLE/MULTIPLE (04/17/13) EGD DILATE STRICTURE (11/05/14) ELECTROCARDIOGRAM REPORT (07/03/13) ELECTROCARDIOGRAM TRACING (09/12/13) EMERGENCY DEPT VISIT (05/27/16) EMERGENCY DEPT VISIT (03/31/16) EMERGENCY DEPT VISIT (10/13/14) EMERGENCY DEPT VISIT (10/13/14) EMERGENCY DEPT VISIT (08/28/14) EMERGENCY DEPT VISIT (08/28/14) EMERGENCY DEPT VISIT (08/14/14) EMERGENCY DEPT VISIT (08/14/14) EMERGENCY DEPT VISIT (06/25/14) EMERGENCY DEPT VISIT (06/25/14) EMERGENCY DEPT VISIT (04/08/14) EMERGENCY DEPT VISIT (10/17/13) EMERGENCY DEPT VISIT (10/10/13) EMERGENCY DEPT VISIT (09/12/13) EMERGENCY DEPT VISIT (08/19/13) EMERGENCY DEPT VISIT (08/19/13) EMERGENCY DEPT VISIT (08/05/13) EMERGENCY DEPT VISIT (07/03/13) EMERGENCY DEPT VISIT (02/20/13) FIBRIN DEGRADATION QUANT (02/20/13) HYDRATE IV INFUSION ADD-ON (03/31/16) HYDRATION IV INFUSION INIT (08/28/14) INITIAL OBSERVATION CARE (07/03/13) METABOLIC PANEL TOTAL CA (10/13/14) OBSERVATION CARE DISCHARGE (07/03/13) POLYSOM 6/> YRS 4/> ARLETTE (06/25/13) POLYSOM 6/>YRS CPAP 4/> PARM (07/27/13) PPSV23 VACC 2 YRS+ SUBQ/IM (07/03/13) ROUTINE VENIPUNCTURE (05/27/16) THER/PROPH/DIAG INJ IV PUSH (05/27/16) THER/PROPH/DIAG INJ SC/IM (05/04/14) THER/PROPH/DIAG IV INF ADDON (10/13/14) THER/PROPH/DIAG IV INF INIT (10/13/14) TISSUE EXAM BY PATHOLOGIST (04/17/13) TTE W/DOPPLER COMPLETE (04/27/14) TX/PRO/DX INJ NEW DRUG ADDON (03/31/16) URINALYSIS AUTO W/SCOPE (03/31/16) URINE BACTERIA CULTURE (05/04/14) URINE CULTURE/COLONY COUNT (10/13/14) URINE TEST (08/14/14) X-RAY EXAM OF ABDOMEN (10/10/13) X-RAY EXAM SERIES ABDOMEN (03/31/16) (1) Sinus tachycardia SNOMED Code(s): 06182601 Code(s): R00.0 - TACHYCARDIA, UNSPECIFIED Current Visit: Yes Problem List Initiated/Reviewed/Updated: Yes My Orders Last 24 Hours: My Active Orders 02/07/17 17:40 EKG Documentation Completion [RC] ASDIRECTED EKG 12 Lead [EK] Urgent Plan: ASSESSMENT AND PLAN - 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 Clinically doing well from a surgery standpoint. -Postop cares per surgical team Sinus tachycardia - persistent but stable. Blood pressure stable. No active symptoms. History of similar episodes that resolved on their own. I don't believe there is any cause for alarm at this time as the patient clinically looks very well. With no active respiratory issues I would recommend discontinuing her nebulizer treatments as this could be contributing. I don't believe that the potential risks of the medications are greater than the benefits at this point. -discontinue cardiac monitoring -No obvious indication for rate slowing medication at this time -Discontinue nebulizers -Monitor for evidence of infection or new pulmonary symptoms Internal medicine will sign off at this time. These contact me if she develops concerning symptoms such as chest pain, dyspnea or severe palpitations. Beck Bloom M.D.
[2017-02-08] MEDS ORDERED: MVI, Adult with Vitamin K 10 ML, Thiamine 200 MG, Chromium/Copper/Mang/Selen/Zn 1 ML in... IV SCH ×4 (16:00)
[2017-02-08] MEDS: Pantoprazole 40 MG Tab.CR PO SCH (16:51)
[2017-02-08] MEDS: Mirtazapine 15 MG Tab PO SCH (21:04)
[2017-02-08] MEDS: QUEtiapine 100 MG Tab PO SCH (21:04)
[2017-02-09] MEDS: Acetaminophen 325 MG Tab PO SCH ×2 (03:59→10:39)
[2017-02-09] MEDS: Acetaminophen/HYDROcodone 325-5 MG Tab PO PRN (05:10)
[2017-02-09] MEDS: Heparin Sodium 5,000 Units/ML Vial SUBCUT SCH (05:10)
[2017-02-09] MEDS: Celecoxib 200 MG Cap PO SCH (08:49)
[2017-02-09] MEDS: ClonazePAM 0.5 MG Tab PO SCH (08:51)
[2017-02-09 11:49] VITALS: BP 91/62
--- NOTE | 2017-02-10 01:55 | DISCH ---
ADMISSION DIAGNOSES: Gastrogastric fistula, status post partial gastrectomy, unspecified surgical malabsorption, B12 deficiency, adjustment disorder with mixed anxiety and depression, history of bezoar, esophageal reflux, family history of hemochromatosis of which she is a carrier, fibromyalgia, history of chlamydia, inappropriate sinus tachycardia, irritable bowel syndrome, polycystic ovary disease, and suicide attempt. DISCHARGE DIAGNOSES: 1. Diagnostic laparoscopy with partial gastrectomy and Lorna-en-Y gastrojejunostomy for resection of gastrogastric fistula, associated with severe bile reflux and intermittent aspiration. Date of surgery 02/06/2017. 2. Upper GI endoscopy. Recent bilious emesis associated with gastrogastric fistula. Date of surgery 02/05/2017. HISTORY: Gayathri Capps is a 26-year-old female with increasingly symptomatic gastrogastric fistula. After preoperative evaluation and discussion of possible risks and possible complications, she wished to proceed with surgical procedure. HOSPITAL COURSE: Gayathri had her surgery on 02/06/2017. She had no operative complications. On postop day #1, she was started on a step-2 gastric bypass diet without cereal. Her home medications were started. She also developed heart rate into the 140s. She did have an Internal Medicine consult to evaluate. EKG was negative, and she was completely asymptomatic. She does have a diagnosis of sinus tachycardia, atypical. Gayathri received dietary instructions. Her activity was good. She was switched to oral pain medication, and on 02/09/2017, she was able to be discharged to home without any complications. PHYSICAL EXAMINATION: GENERAL: Gayathri is a 26-year-old female. VITAL SIGNS: Height is 5 feet 1.8 inches, weight is 116 pounds. TPR is 99.7, 117, 14. Blood pressure 93/58. HEENT: Negative. NECK: Supple. HEART: Regular rate and rhythm. LUNGS: Clear. ABDOMEN: Sutures in place. The RENETTA drain will be removed, 4x4s placed over RENETTA drain site. EXTREMITIES: Without peripheral edema. DISPOSITION: Discharged to home. CONDITION: Stable and improving. FOLLOWUP: With Louisa Arora PA-C, on 02/19/2017 at 11:00 a.m. DISCHARGE MEDICATIONS: Home medications: 1. Tylenol 650 mg q.6 hours, scheduled for 2 weeks. 2. Julian 5/325 mg 1 to 2 every 4 hours p.r.n. pain, #50. 3. Celebrex 200 mg oral daily for 14 days and then stop. 4. Niloot-S take 2 b.i.d. until bowel movement. She is to continue taking albuterol inhaler 2 puffs every 4 hours p.r.n. shortness of breath, discontinue taking all vitamins and supplements, and continue taking famotidine 40 mg p.o. daily, Citrucel 1 teaspoon oral twice daily, hydrocortisone 2.5 topical cream twice daily for itching, Zofran ODT 4 mg q.8 hours p.r.n. nausea, Seroquel 25 to 100 mg oral at bedtime, zolpidem 10 mg oral at bedtime, and Klonopin 0.5 mg oral 3 times daily p.r.n. anxiety. DISCHARGE INSTRUCTIONS: Diet after discharge: Drink 8 to 10 glasses of water a day. Step- 3 gastric bypass diet. Activity: No lifting greater than 10 pounds for 6 weeks. Driving after discharge, do not drive on pain medication. May shower. Notify provider if fever, increased pain, nausea, or vomiting. Keep site clean and dry. Wear abdominal binder for 2 weeks and then as tolerated. Use incentive spirometer 10 times every hour while awake.
== END 2017-02-09 12:58 | disposition home or self-care (01) | DRG 222 ==
LOC: EDSTATUS 11:30 → JP.SDS 12:41 → JP.MS 12:41 → UNDOADMIN 16:10
PROVIDERS: ADMIT Surgery; ATTEND Surgery
PROC: 0DJ08ZZ Inspection of Upper Intestinal Tract, Via Natural or Artificial Opening Endoscopic (ICD-10-PCS; principal; 2017-02-05)
PROC: 3E0T3BZ Introduction of Anesthetic Agent into Peripheral Nerves and Plexi, Percutaneous Approach (ICD-10-PCS; 2017-02-06)
PROC: 0DB64ZZ Excision of Stomach, Percutaneous Endoscopic Approach (ICD-10-PCS; 2017-02-06)
PROC: 0D164ZA Bypass Stomach to Jejunum, Percutaneous Endoscopic Approach (ICD-10-PCS; 2017-02-06)
PROC: 0DB84ZX Excision of Small Intestine, Percutaneous Endoscopic Approach, Diagnostic (ICD-10-PCS; 2017-02-06)
DX: K31.6 Fistula of stomach and duodenum (principal); R13.10 Dysphagia, unspecified; Z90.3 Acquired absence of stomach [part of]; K21.9 Gastro-esophageal reflux disease without esophagitis; F43.23 Adjustment disorder with mixed anxiety and depressed mood; M79.7 Fibromyalgia; Z87.440 Personal history of urinary (tract) infections; E55.9 Vitamin D deficiency, unspecified; Z14.8 Genetic carrier of other disease; Z91.5 Personal history of self-harm; Z98.84 Bariatric surgery status; R00.0 Tachycardia, unspecified; Z87.891 Personal history of nicotine dependence; Z88.1 Allergy status to other antibiotic agents; Z88.8 Allergy status to other drugs, medicaments and biological substances; E53.8 Deficiency of other specified B group vitamins; Z86.19 Personal history of other infectious and parasitic diseases
CPT/HCPCS: 36415; 74240; 74240-26; 80048; 83735; 84443; 85025; 88307; 93005; 94640-76; 94762; A9270-GY; C9113; J0171; J0330; J1100; J1170; J1644; J2001; J2060; J2185; J2250; J2405; J2704; J2710; J2795; J3010; J3410; J3411; J3420; J3475; J3480; J3490; J7030; J7040; J7042; J7050; J7120; J7620; Q9967

== ENCOUNTER 2017-04-06 05:49 | Day surgery (SDC) | payer MEDICAID ==
[2017-04-06] MEDS ORDERED: Lactated Ringers 1,000 ML IV SCH (06:30)
[2017-04-06] MEDS ORDERED: Cyanocobalamin (Vitamin B12) 1,000 MCG/ML SDV IM ONE (06:30)
[2017-04-06] MEDS ORDERED: Glycopyrrolate 0.2 MG/ML 2 ML SDV IVPUSH ONE (07:00)
[2017-04-06] MEDS ORDERED: Midazolam 1 MG/ML 2 ML SDV ONE (07:07)
[2017-04-06] MEDS ORDERED: fentaNYL 100 MCG/2 ML SDV ONE (07:07)
[2017-04-06] MEDS ORDERED: MVI, Adult with Vitamin K 10 ML, Thiamine 200 MG, Chromium/Copper/Mang/Selen/Zn 1 ML in... IV ONE ×4 (07:30)
[2017-04-06] MEDS ORDERED: Propofol 200 MG/20 ML SDV ONE (07:30)
[2017-04-06] MEDS ORDERED: Lactated Ringers 0 ML ONE (08:02)
[2017-04-06 09:06] VITALS: BP 97/68
--- NOTE | 2017-04-08 12:02 | OR ---
DATE OF PROCEDURE: 04/06/2017 PREOPERATIVE DIAGNOSIS: Dysphagia, status post partial gastrectomy with Lorna-en-Y gastrojejunostomy. POSTOPERATIVE DIAGNOSIS: Normal upper GI endoscopy, status post partial gastrectomy with Lorna-en-Y gastrojejunostomy. OPERATIVE PROCEDURE: Upper GI endoscopy with dilation of gastrojejunostomy (81471). ANESTHESIA: IV sedation. INDICATION FOR PROCEDURE: The patient is status post a partial gastrectomy with Lorna-en-Y gastrojejunostomy for recurrent gastroesophageal reflux disease. Recently, she had increasing problems with dysphagia and the plan is to proceed with an upper GI endoscopy with biopsies and/or dilation as indicated. Potential risks including bleeding and perforation were discussed, and the patient wishes to proceed. DETAILS OF PROCEDURE: The patient was taken to the operating room and placed in a left lateral decubitus position. IV sedation was administered after which the upper GI endoscope was passed orally through the length of the esophagus and into the gastric pouch, from there through the gastrojejunostomy, roughly 20 cm into the Lorna limb. Overall, the findings appeared to be entirely normal. There were no areas of significant mucosal inflammation and no true stricture at the gastrojejunostomy. The 1 cm gastroscope was easily passed through that anastomosis in the event that we might be able to make it a little bit larger. A 54-Lithuanian dilator was then placed across the gastrojejunostomy, held in position for 1 minute, after deflation it became evident that this would result in little if any increase in diameter which also then confirmed that we were dealing with a satisfactory size gastrojejunostomy. The scope was then withdrawn, the procedure then concluded. The patient was taken to the recovery room in satisfactory condition. The plan will be to have the patient undergo some additional dietary counseling regarding eating behavior which should, if followed through on, likely solve the problem. Adelso Crane MD /[id number]
== END 2017-04-06 10:08 | disposition home or self-care (01) ==
LOC: JP.SDS 05:49 → EEVIPCON 07:15 → JP.SDS 10:08
PROVIDERS: ATTEND Surgery
DX: R13.10 Dysphagia, unspecified (principal); J45.909 Unspecified asthma, uncomplicated; G47.30 Sleep apnea, unspecified; E55.9 Vitamin D deficiency, unspecified; F41.9 Anxiety disorder, unspecified; F32.9 Major depressive disorder, single episode, unspecified; E53.8 Deficiency of other specified B group vitamins; Z90.3 Acquired absence of stomach [part of]; Z88.0 Allergy status to penicillin; Z88.1 Allergy status to other antibiotic agents; Z88.8 Allergy status to other drugs, medicaments and biological substances; Z98.890 Other specified postprocedural states; Z90.49 Acquired absence of other specified parts of digestive tract; Z98.84 Bariatric surgery status
CPT/HCPCS: 43245; J2250; J2704; J3010; J3411; J3420; J7120; J3490

== ENCOUNTER 2017-07-09 08:09 | Inpatient (IN) | payer MEDICAID ==
[~2017-07-09 08:09] MED LIST changes: +Acetaminophen 500 MG Tab PO ONE; +Bupivacaine 0.5%/EPINEPHrine 1:200,000 50 ML MDV ONE; -Cyanocobalamin (Vitamin B12) 1,000 MCG/ML SDV IM ONE; -Glycopyrrolate 0.2 MG/ML 2 ML SDV IVPUSH ONE; -Lactated Ringers 1,000 ML IV SCH; -MVI, Adult with Vitamin K 10 ML, Thiamine 200 MG, Chromium/Copper/Mang/Selen/Zn 1 ML in... IV ONE; -Meropenem 500 MG in Sodium Chloride 0.9% 50 ML IV ONE
[2017-07-09] MEDS ORDERED: CHECK SCOPOLAMINE PATCH DAILY TOP SCH (09:00)
[2017-07-09] MEDS ORDERED: Acetaminophen 500 MG Tab PO ONE (09:30)
[2017-07-09] MEDS ORDERED: Scopolamine 1.5 MG Transdermal Patch TOP SCH (09:30)
[2017-07-09] MEDS ORDERED: Albuterol/Ipratropium 3.0-0.5 MG/3 ML Neb Soln NEB ONE (09:30)
[2017-07-09] MEDS ORDERED: Dextrose 5%-Lactated Ringers 1,000 ML IV SCH (09:30)
[2017-07-09] MEDS ORDERED: Doxycycline 200 MG in Sodium Chloride 0.9% 100 ML IV ONE (10:00)
[2017-07-09] MEDS ORDERED: Lidocaine 2% 100 MG/5 ML Syringe IVPUSH ONE (10:30)
[2017-07-09] MEDS ORDERED: Lidocaine 0.4%/D5W 2 GM/500 ML BAG IV SCH ×2 (10:30)
[2017-07-09] MEDS ORDERED: Ketamine 500 MG/5 ML MDV IV ONE (10:30)
[2017-07-09] MEDS ORDERED: Ropivacaine 28 ML, Dexamethasone 8 MG, EPINEPHrine 0.4 MG, Sodium Chloride 0.9% 49.6 ML NERVRT ONE ×4 (10:30)
[2017-07-09] MEDS ORDERED: Meropenem 500 MG SDV ONE (10:43)
[2017-07-09] MEDS ORDERED: fentaNYL 250 MCG/5 ML SDV ONE (10:57)
[2017-07-09] MEDS ORDERED: Propofol 200 MG/20 ML SDV ONE (10:58)
[2017-07-09] MEDS ORDERED: Ondansetron 4 MG/2 ML SDV ONE (10:58)
[2017-07-09] MEDS ORDERED: Dexamethasone 4 MG/ML SDV ONE (10:58)
[2017-07-09] MEDS ORDERED: Neostigmine Methylsulfate 1 MG/ML 5 ML Syringe ONE (10:58)
[2017-07-09] MEDS ORDERED: Rocuronium 50 MG/5 ML Vial ONE (10:58)
[2017-07-09] MEDS: Doxycycline 200 MG in Sodium Chloride 0.9% 250 ML IV ONE ×2 (11:57→14:27)
[2017-07-09] MEDS ORDERED: Naloxone 0.4 MG/ML SDV IVPUSH PRN (12:55)
[2017-07-09] MEDS ORDERED: HYDROmorphone/Normal Saline 15 MG/30 ML PCA IV PRN (12:55)
[2017-07-09] MEDS ORDERED: Albuterol/Ipratropium 3.0-0.5 MG/3 ML Neb Soln INH PRN (14:15)
[2017-07-09] MEDS ORDERED: Ondansetron 4 MG/2 ML SDV IV PRN (14:19)
[2017-07-09] MEDS: Albuterol/Ipratropium 3.0-0.5 MG/3 ML Neb Soln INH SCH ×2 (14:49→20:09)
[2017-07-09] MEDS ORDERED: Iron Sucrose Complex 500 MG in Sodium Chloride 0.9% 250 ML IV ONE (16:00)
[2017-07-09] MEDS: Acetaminophen 325 MG Tab PO SCH ×2 (16:48→21:58)
[2017-07-09] MEDS: Cyanocobalamin (Vitamin B12) 1,000 MCG/ML SDV IM SCH (16:49)
[2017-07-09] MEDS: HYDROmorphone 2 MG Tab PO PRN ×2 (17:04→22:03)
[2017-07-09] MEDS ORDERED: Benzocaine/Cetylpyridinium/Menthol Lozenge MUCMEM PRN (19:18)
[2017-07-09] MEDS: Mometasone Furoate HFA 100mcg/Puff 13 GM Inhaler INH SCH (20:07)
[2017-07-09] MEDS: diphenhydrAMINE 50 MG/ML SDV IVPUSH PRN (21:50)
[2017-07-09] MEDS: Psyllium Husk Powder Sugar Free 3.4 GM Packet PO SCH (21:57)
[2017-07-09] MEDS: Famotidine 20 MG Tab PO SCH (21:57)
[2017-07-09] MEDS: ClonazePAM 0.5 MG Tab PO SCH (21:58)
[2017-07-09] MEDS: Mirtazapine 15 MG Tab PO SCH (21:58)
[2017-07-09] MEDS: QUEtiapine 25 MG Tab PO SCH (21:58)
[2017-07-10] MEDS: Dextrose 5%-Lactated Ringers 1,000 ML IV SCH ×4 (00:03→22:12)
[2017-07-10] MEDS: HYDROmorphone 2 MG Tab PO PRN ×4 (04:07→19:44)
[2017-07-10] MEDS: Acetaminophen 325 MG Tab PO SCH ×4 (04:08→21:00)
[2017-07-10] MEDS ORDERED: methylPREDNISolone Sod Succ 80 MG in Dextrose 5% in Water 100 ML IV ONE ×2 (07:13)
[2017-07-10] MEDS: Albuterol/Ipratropium 3.0-0.5 MG/3 ML Neb Soln INH SCH ×4 (07:17→20:57)
--- NOTE | 2017-07-10 08:02 | PN ---
DATE OF SERVICE: 07/10/2017 SUBJECTIVE: Gayathri is postop day 1. She states her pain is controlled. She did get 1 dose 500 mg of Venofer. She did develop a slight pink rash on each of her forearms and her ferritin was 5. Pain is controlled. Oral intake 840. Urine output 2500. She did have episodes of tachycardia with her highest pulse rate of 152 and there were no ectopic beats or arrhythmias. REVIEW OF SYSTEMS: Remainder of review of systems negative for any pertinent positives and negatives. OBJECTIVE: GENERAL: Gayathri Capps is a 26-year-old female, alert and orientated, sitting up in bed. VITAL SIGNS: TPR 98.7, 81, 18. Blood pressure 95/59. HEENT: Negative. NECK: Supple. HEART: Regular rate and rhythm. LUNGS: Clear. ABDOMEN: Dressings dry and intact. Abdominal binder is on. EXTREMITIES: Without peripheral edema. ASSESSMENT: 1. Diagnostic laparoscopy with right ovarian cystectomy and puncture aspiration of left ovarian cyst for left ovarian cyst and right ovarian cyst. Date of surgery, 07/09/2017. 2. Low ferritin 5 and B12 deficiency, status post unspecified surgical malabsorption. 3. Partial gastrectomy. 4. History of proximal atrial tachycardia. PLAN: 1. Pretreat next Venofer infusion with Solu-Medrol 80 mg. 2. Leave telemetry. 3. May saline lock IV if oral intake adequate. 4. Dressing off, may shower. 5. Good pulmonary toilet. 6. We will evaluate p.r.n. or in the a.m. Louisa Arora PA-C /[id number]
[2017-07-10] MEDS: Mometasone Furoate HFA 100mcg/Puff 13 GM Inhaler INH SCH ×2 (08:39→20:59)
[2017-07-10] MEDS: Psyllium Husk Powder Sugar Free 3.4 GM Packet PO SCH ×2 (08:54→20:59)
[2017-07-10] MEDS: Mirtazapine 15 MG Tab PO SCH ×2 (08:54→21:00)
[2017-07-10] MEDS: Famotidine 20 MG Tab PO SCH ×2 (08:54→21:00)
[2017-07-10] MEDS: Cyanocobalamin (Vitamin B12) 1,000 MCG/ML SDV IM SCH (08:55)
[2017-07-10] MEDS: ClonazePAM 0.5 MG Tab PO SCH ×3 (09:03→20:57)
[2017-07-10] MEDS ORDERED: methylPREDNISolone Sodium Succinate 125 MG/2 ML SDV IVPUSH ONE (10:45)
[2017-07-10] MEDS ORDERED: Iron Sucrose Complex 500 MG in Sodium Chloride 0.9% 250 ML IV ONE (11:00)
[2017-07-10] MEDS: diphenhydrAMINE 50 MG/ML SDV IVPUSH PRN ×2 (15:39→21:16)
[2017-07-10] MEDS: QUEtiapine 25 MG Tab PO SCH (21:00)
[2017-07-11] MEDS: Acetaminophen 325 MG Tab PO SCH ×2 (03:02→08:35)
[2017-07-11] MEDS: HYDROmorphone 2 MG Tab PO PRN ×2 (03:03→07:53)
[2017-07-11] MEDS: Dextrose 5%-Lactated Ringers 1,000 ML IV SCH (04:58)
[2017-07-11 07:06] VITALS: BP 109/64
[2017-07-11] MEDS: Mometasone Furoate HFA 100mcg/Puff 13 GM Inhaler INH SCH (07:42)
[2017-07-11] MEDS: Albuterol/Ipratropium 3.0-0.5 MG/3 ML Neb Soln INH SCH (07:43)
--- NOTE | 2017-07-11 08:30 | DISCH ---
ADMISSION DIAGNOSES: A 4 cm cyst right ovary, partial gastrectomy for GERD refractory to medical management and polycystic ovary disease, obstructive sleep apnea, major depression disorder, irritable bowel syndrome. Allergies to environmental factors, paroxysmal atrial tachycardia. DISCHARGE DIAGNOSES: 1. Laparoscopic right ovarian cystectomy, aspiration of left ovarian cyst. Date of surgery 07/09/2017. 2. Low ferritin of 5, requiring Venofer 500 mg IV x2. HISTORY: Gayathri Capps is a 26-year-old female with polycystic ovary disease and a right ovarian cyst. After preoperative evaluation and discussion of possible risks and possible complications, she wished to proceed with surgical procedure. HOSPITAL COURSE: Gayathri had her surgery on 07/09/2017. She had no operative complications. On postop day #1, she received Venofer 500 mg IV and it was repeated again on postop day #1. She did develop a pink rash on her forearms with the first dose of Venofer and was pretreated with Solu-Medrol prior to the second dose and then she also was given Benadryl on a p.r.n. basis. On postop day #1, she was started on a regular diet, oral pain medication. Her activity was good. Vital signs were stable. Pain was well managed and she was able to be discharged to home. PHYSICAL EXAMINATION: GENERAL: Gayathri Capps is a 26-year-old female. VITAL SIGNS: Height is 5 feet 1.8 inches. Weight is 118 pounds. TPR 98.7, 88, 18. Blood pressure 109/64. HEENT: Negative. NECK: Supple. HEART: Regular rate and rhythm. LUNGS: Clear. ABDOMEN: Sutures in place. Soft. Minimally tender. EXTREMITIES: Without peripheral edema. DISPOSITION: Discharged to home. CONDITION: Stable and improving. FOLLOWUP APPOINTMENT: With Louisa Arora PA-C on 07/19/2017 at 10:00 a.m. HOME MEDICATIONS: 1. Tylenol 650 mg oral q.6 hours p.r.n. pain. 2. Dilaudid 2 mg 1-2 oral q.4 hours p.r.n. pain, #40. 3. Milk of magnesia 30 mL oral daily as needed, two were sent home with patient. 4. She is to resume her home medications; Tylenol 650 mg oral q.6 hours. 5. ProAir two puffs inhalation every 4 hours p.r.n. shortness of breath. 6. Beclomethasone dipropionate two puffs inhalation twice daily. 7. Calcium Tums 500 oral daily. 8. Vitamin D3, 5000 international units daily. 9. She has a Nexplanon in. 10.Famotidine 40 mg oral twice daily. 11.Hydrocortisone cream 2.5% one applicator topical twice daily. 12.Citrucel 1 tablespoon oral twice daily. 13.Remeron 7.5, just 15 mg twice daily. 14.Multivitamin one tablets b.i.d. 15.Zofran ODT 4 mg every 8 hours p.r.n. nausea. 16.Seroquel 50 to 100 mg oral at bedtime. 17.Senokot-S 2 each twice daily. 18.Ambien 10 mg oral at bedtime. 19.Klonopin 0.5 mg oral 3 times a day p.r.n. anxiety. DISCHARGE DIET: Step 4 gastric bypass diet. ACTIVITY: No lifting greater than 10 pounds for 2 weeks. May shower. Keep operative site clean and dry. Notify provider of fever, increased pain, nausea, or vomiting. SPECIAL INSTRUCTIONS: Use incentive spirometer 10 times every hour while awake for 1 week.
[2017-07-11] MEDS: ClonazePAM 0.5 MG Tab PO SCH (08:32)
[2017-07-11] MEDS: Psyllium Husk Powder Sugar Free 3.4 GM Packet PO SCH (08:33)
[2017-07-11] MEDS: Mirtazapine 15 MG Tab PO SCH (08:33)
[2017-07-11] MEDS: Famotidine 20 MG Tab PO SCH (08:34)
[2017-07-11] MEDS ORDERED: Magnesium Hydroxide 400 MG/5 ML Susp 30 ML Cup PO ONE (10:00)
--- NOTE | 2017-07-16 13:50 | OR ---
DATE OF PROCEDURE: 07/09/2017 PREOPERATIVE DIAGNOSIS: Symptomatic right ovarian cyst. POSTOPERATIVE DIAGNOSES: 1. Symptomatic right ovarian cyst. 2. Smaller left ovarian cyst. OPERATIVE PROCEDURES: Diagnostic laparoscopy with: 1. Right ovarian cystectomy (36953). 2. Puncture drainage of left ovarian cyst (79864). ANESTHESIA: General. ASSISTANTS: Louisa Arora PA-C, and SUSAN Armendariz3. INDICATION FOR PROCEDURE: This is a 26-year-old presenting here with some lower abdominal pain. Workup included an ultrasound showing a 4-cm right ovarian cyst, which appears to be symptomatic. Plan is to proceed with a diagnostic laparoscopy, laparotomy if necessary, and cystectomy. At age 26, we will aim to preserve as much ovarian tissue as possible. Potential risks including bleeding, infection, injury to underlying viscera, recurrence of problem over time were all reviewed, and the patient wishes to proceed. DETAILS OF PROCEDURE: The patient was taken to the operating room and placed in a supine position. After general endotracheal anesthesia was induced, she was converted to a lithotomy position and a Aleman catheter was inserted, and the abdomen was prepped and draped. In the left mid-abdomen at one point of previous trocar placement, a transverse incision was made and the peritoneal cavity entered under direct vision with an Optiview trocar and inflated to 15 mmHg pressure with CO2. Laparoscope was then reinserted. No underlying trocar insertion site injuries were seen. Following this, a 5-mm right upper quadrant trocar was placed along with a 12-mm left lower quadrant trocar. The pelvis was examined. The patient was noted to have no endometriosis or other pelvic pathology apart from some ovarian cysts. On the left side, the patient had a small serous appearing cyst. On the right side, the 4-cm cyst that had previously been present had decreased in size quite a bit, was now presently palpated around 2 cm. The left ovarian cyst was at this point drained. This had clear serous fluid coming from it and a small edge of the wall was sent for biopsy. The right ovarian cyst was then initially opened and serous fluid also identified and evacuated. A portion of this cyst was then excised using a SHAMIR stapler and that the cyst wall was sent for histologic evaluation as well. The patient had essentially no ovarian tissue removed during the course of the procedure. Two of the ovaries and uterus otherwise were unremarkable. At this point, the area was inspected. No additional problems were noted. The trocars were sequentially removed. The 12-mm site was closed with 0 Vicryl stitch at the fascia level and 4-0 Vicryl skin stitch. Dressing was applied. The patient was taken to the recovery room in a satisfactory condition. Adelso Crane MD /[id number]
== END 2017-07-11 09:45 | disposition home or self-care (01) | DRG 742 ==
LOC: JP.SDSSCHI 08:09 → JP.SDS 08:10 → EDSTATUS 11:00 → JP.2SS 13:00
PROVIDERS: ADMIT Surgery; ATTEND Surgery
PROC: 0UB04ZZ Excision of Right Ovary, Percutaneous Endoscopic Approach (ICD-10-PCS; principal; 2017-07-09)
PROC: 0U914ZX Drainage of Left Ovary, Percutaneous Endoscopic Approach, Diagnostic (ICD-10-PCS; 2017-07-09)
DX: E28.2 Polycystic ovarian syndrome (principal); K91.2 Postsurgical malabsorption, not elsewhere classified; E53.8 Deficiency of other specified B group vitamins; E63.9 Nutritional deficiency, unspecified; G47.33 Obstructive sleep apnea (adult) (pediatric); F32.9 Major depressive disorder, single episode, unspecified; I48.0 Paroxysmal atrial fibrillation; R21 Rash and other nonspecific skin eruption
CPT/HCPCS: 36415; 80053; 81025; 82607; 82728; 83735; 84100; 85025; 88305; 94640; 94640-76; 94762; A9270-GY; J0171; J1100; J1200; J1756; J2001; J2185; J2405; J2704; J2795; J2930; J3010; J3420; J7042; J7050; J7620

== ENCOUNTER 2018-01-30 11:58 | Emergency (ER) | payer MEDICAID ==
[2018-01-30 13:25] VITALS: BP 107/66
--- NOTE | 2018-01-30 13:28 | EDM.PDOC ---
ED HPI GENERAL MEDICAL PROBLEM - General Chief Complaint: Neck Problem Stated Complaint: NECK PAIN AND NUMBNESS IN LEGS AND HANDS Time Seen by Provider: 01/30/18 13:05 Source of Information: Reports: Patient, Family History Limitations: Reports: No Limitations - History of Present Illness INITIAL COMMENTS - FREE TEXT/NARRATIVE: 27-year-old female with a history of gastric bypass, does have some chronic peripheral paresthesias but seems to respond vitamin B treatments. 4 days ago she tripped over her dog and landed on her upper back and neck, has some soreness but today developed some tingling and her grandma thought it might be because she fell and hurt her neck. No weakness. She just wanted to get checked out. Location: Reports: Neck Severity: Mild Associated Symptoms: Reports: Other (Paresthesias of the hands and feet as well as some mild neck discomfort) Neck Pain Score (Numeric/FACES): 5 - Related Data Allergies Allergy/AdvReac Type Severity Reaction Status Date / Time amoxicillin [Amoxicillin] Allergy Unknown Rash Verified 04/06/17 06:18 Penicillins Allergy Unknown Rash Verified 04/06/17 06:18 Aminoglycosides Allergy Cannot Verified 04/06/17 06:18 Remember levofloxacin Allergy Rash Verified 04/06/17 06:18 metoclopramide [From Reglan] Allergy Cannot Verified 04/06/17 06:18 Remember prochlorperazine edisylate AdvReac Intermediate Tachycardia Verified 04/06/17 06 :18 [From Compazine] prochlorperazine maleate AdvReac Intermediate Tachycardia Verified 04/06/17 06: 18 [From Compazine] cephalexin monohydrate AdvReac Unknown Vomiting Verified 04/06/17 06:18 [From Keflex] erythromycin base AdvReac Unknown Abdominal Verified 04/06/17 06:18 [Erythromycin Base] Pain lidocaine AdvReac Nausea and Verified 07/09/17 13:34 Vomiting Home Meds: Home Meds Ondansetron HCl [Ondansetron] 4 mg PO Q8HR PRN 02/20/13 [History] Albuterol Sulfate [Proair Hfa] 2 puff IH Q4H PRN 04/16/13 [History] clonazePAM [Klonopin] 0.5 mg PO TID 08/14/14 [History] Multivitamin with Minerals [Multiple Vitamin] 1 tab PO BID 11/04/14 [History] Etonogestrel [Nexplanon] 1 dose SQ ASDIRECTED 03/31/16 [History] Zolpidem [Ambien] 5 - 10 mg PO BEDTIME PRN 03/31/16 [History] Calcium Carbonate [Tums] 500 mg PO DAILY 02/02/17 [History] Hydrocortisone [Hydrocortisone 2.5% Crm] 1 applic TOP BID PRN 02/02/17 [History] Methylcellulose (with Sugar) [Citrucel] 1 tbsp PO BID 02/02/17 [History] Mirtazapine [Remeron] 30 mg PO BEDTIME 02/02/17 [History] QUEtiapine [SEROquel] 50 - 100 mg PO BEDTIME 02/02/17 [History] Sennosides/Docusate Sodium [Senokot-S Tablet] 2 each PO BID PRN #50 tablet 02/09 [Rx] Acetaminophen [Tylenol] 650 mg PO Q6H PRN 04/06/17 [History] Beclomethasone Dipropionate [Qvar] 2 puff INH BID 04/06/17 [History] Cholecalciferol (Vitamin D3) [Vitamin D] 5,000 unit PO DAILY 07/06/17 [History] Famotidine 40 mg PO BID 07/06/17 [History] Acetaminophen [Tylenol] 650 mg PO Q6H tablet 07/11/17 [Rx] HYDROmorphone [Dilaudid] 2 - 4 mg PO Q4H PRN #40 tablet 07/11/17 [Rx] Magnesium Hydroxide [Milk of Magnesia] 30 ml PO DAILY PRN 2 Days #2 ml 07/11/17 [Rx] Hyoscyamine Sulfate [Levsin-Sl] 0.125 mg SL Q4H PRN 12/20/17 [History] Oxybutynin Chloride 5 mg PO BEDTIME 12/20/17 [History] PARoxetine HCl [Paroxetine HCl] 10 mg PO BEDTIME 12/20/17 [History] Promethazine [Phenergan] 25 mg PO Q6H PRN 12/20/17 [History] Sucralfate [Carafate] 1 gm PO QIDPCANDBED 12/20/17 [History] Past Medical History HEENT History: Reports: Allergic Rhinitis, Other (See Below) Other HEENT History: enlarged optic nerve Cardiovascular History: Reports: Arrhythmia, Other (See Below) Other Cardiovascular History: tachycardia; PVC's Respiratory History: Reports: Asthma, Sleep Apnea Gastrointestinal History: Reports: Colon Polyp, Hemorrhoids, Hiatal Hernia, Pancreatitis, Other (See Below) Other Gastrointestinal History: ulcers, gastroparesis, bezoars, esophageal strictures Genitourinary History: Reports: Renal Calculus, Retention, Urinary, Other (See Below) Other Genitourinary History: 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: Polycystic 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 Musculoskeletal History: Reports: Fracture, Fibromyalgia Neurological History: Reports: Concussion Psychiatric History: Reports: Anxiety, Depression, Psych Hospitalization(s), PTSD, Suicide Attempt, Other (See Below) Other Psychiatric History: mooddisorder unclasified Endocrine/Metabolic History: Reports: Vitamin D Deficiency, Other (See Below) Other Endocrine/Metabolic History: hypoglycemia Hematologic History: Reports: B12 Deficiency, Iron Deficiency Dermatologic History: Reports: Other (See Below) Other Dermatologic History: skin rashes and acne; abdnormal moles - Infectious Disease History Infectious Disease History: Reports: Chicken Pox, Influenza, Shingles - Past Surgical History HEENT Surgical History: Reports: None, Oral Surgery Cardiovascular Surgical History: Reports: Other (See Below) Other Cardiovascular Surgeries/Procedures: ECHO Respiratory Surgical History: Reports: None GI Surgical History: Reports: Bariatric Procedure, Cholecystectomy, Colonoscopy , EGD, Esophageal Dilatation, Hernia Repair/Other, Felix Fundoplication, Polypectomy, Other (See Below) Other GI Surgeries/Procedures: fistula, perforation Female Surgical History: Reports: None Endocrine Surgical History: Reports: None Neurological Surgical History: Reports: None Musculoskeletal Surgical History: Reports: None Dermatological Surgical History: Reports: Skin Biopsy Social & Family History - Family History Family Medical History: Noncontributory Cardiac: Reports: CAD Endocrine/Metabolic: Reports: Diabetes, type II - Tobacco Use Smoking Status *Q: Never Smoker - Caffeine Use Caffeine Use: Reports: Soda - Recreational Drug Use Recreational Drug Use: No ED ROS GENERAL - Review of Systems Review Of Systems: See Below Constitutional: Denies: Fever, Chills Respiratory: Denies: Shortness of Breath GI/Abdominal: Denies: Nausea, Vomiting Skin: Reports: No Symptoms Neurological: Denies: Headache ED EXAM, UPPER BACK/NECK PAIN - Physical Exam Exam: See Below Exam Limited By: No Limitations General Appearance: Alert, No Apparent Distress Eye Exam: Bilateral Eye: EOMI Neck Exam: Spinous Processes Tender (Some slight spinous process tenderness to C4-C7), Tenderness (Some mild tenderness with range of motion especially extension). No: Stiff Neck Neurologic: No Motor/Sensory Deficits, Normal Mood/Affect, Oriented x 3, Other ( Romberg negative, no pronator drift) Course - Vital Signs Last Recorded V/S: Last Vital Signs Temp 96.5 F 01/30/18 12:58 Pulse 68 01/30/18 12:58 Resp 16 01/30/18 12:58 BP 107/66 01/30/18 12:58 Pulse Ox 99 01/30/18 12:58 - Re-Assessments/Exams Free Text/Narrative Re-Assessment/Exam: 01/30/18 13:27 Reassured the patient she has a mild neck contusion, this should continue to improve. She can recheck anytime if worsening or consider recheck in 5-7 days if not improving. Departure - Departure Time of Disposition: 13:38 Disposition: Home, Self-Care 01 Condition: Good Clinical Impression: Paresthesia of upper and lower extremity Contusion of neck Qualifiers: Encounter type: initial encounter Qualified Code(s): S10.93XA - Contusion of unspecified part of neck, initial encounter - Discharge Information Instructions: Neck Contusion Referrals: PCP,None [Primary Care Provider] - Forms: ED Department Discharge Care Plan Goals: Increase activity as tolerated, Tylenol should help, and just continue current medications. Return anytime if worsening such as increasing weakness, or consider rechecking in 5-7 days if not improving satisfactorily.
== END 2018-01-30 13:38 | disposition home or self-care (01) ==
LOC: JP.ED 11:58
DX: S10.93XA Contusion of unspecified part of neck, initial encounter (principal); R20.2 Paresthesia of skin; Z79.899 Other long term (current) drug therapy; Z88.1 Allergy status to other antibiotic agents; Z98.84 Bariatric surgery status; W01.0XXA Fall on same level from slipping, tripping and stumbling without subsequent striking against object, initial encounter
CPT/HCPCS: 99283

== ENCOUNTER 2019-01-04 21:34 | Emergency (ER) | payer MEDICAID ==
[2019-01-04] MEDS ORDERED: HYDROmorphone 1 MG/ML Syringe IVPUSH ONE (22:32)
[2019-01-04] MEDS ORDERED: Ondansetron 4 MG/2 ML SDV IVPUSH ONE (22:32)
--- NOTE | 2019-01-04 22:48 | EDM.PDOC ---
ED HPI GENERAL MEDICAL PROBLEM - General Chief Complaint: Abdominal Pain Stated Complaint: RT SIDED ABDOMINAL PAIN, FATIGUE Time Seen by Provider: 01/04/19 22:15 Source of Information: Reports: Patient History Limitations: Reports: No Limitations - History of Present Illness INITIAL COMMENTS - FREE TEXT/NARRATIVE: 28 yo with complex surgical history including gastric bypass complicated by anastamotic abscess presents with concerns of abdominal pain. Started approx 90 minutes prior to arrival. Is primarily right sided. Described as ache. No radiation. Feels better with pressure against the abdomen. Similar to last fall when she had perforated bowel. No nausea or vomiting. Not having BM or flatus. No fever. right abd Pain Score (Numeric/FACES): 6 - Related Data Allergies Allergy/AdvReac Type Severity Reaction Status Date / Time amoxicillin [Amoxicillin] Allergy Unknown Rash Verified 01/04/19 21:51 Penicillins Allergy Unknown Rash Verified 01/04/19 21:51 Aminoglycosides Allergy Cannot Verified 01/04/19 21:51 Remember levofloxacin Allergy Rash Verified 01/04/19 21:51 metoclopramide [From Reglan] Allergy Cannot Verified 01/04/19 21:51 Remember prochlorperazine edisylate AdvReac Intermediate Tachycardia Verified 01/04/19 21 :51 [From Compazine] prochlorperazine maleate AdvReac Intermediate Tachycardia Verified 01/04/19 21: 51 [From Compazine] cephalexin monohydrate AdvReac Unknown Vomiting Verified 01/04/19 21:51 [From Keflex] erythromycin base AdvReac Unknown Abdominal Verified 01/04/19 21:51 [Erythromycin Base] Pain lidocaine AdvReac Nausea and Verified 01/04/19 21:51 Vomiting Home Meds: Home Meds Ondansetron HCl [Ondansetron] 4 mg PO Q8HR PRN 02/20/13 [History] Albuterol Sulfate [Proair Hfa] 2 puff IH Q4H PRN 04/16/13 [History] clonazePAM [Klonopin] 0.5 mg PO TID 08/14/14 [History] Zolpidem [Ambien] 5 - 10 mg PO BEDTIME PRN 03/31/16 [History] Calcium Carbonate [Tums] 500 mg PO DAILY 02/02/17 [History] Hydrocortisone [Hydrocortisone 2.5% Crm] 1 applic TOP BID PRN 02/02/17 [History] Methylcellulose (with Sugar) [Citrucel] 1 tbsp PO BID PRN 02/02/17 [History] Mirtazapine [Remeron] 30 mg PO BEDTIME 02/02/17 [History] QUEtiapine [SEROquel] 50 - 100 mg PO BEDTIME 02/02/17 [History] Acetaminophen [Tylenol] 650 mg PO Q6H PRN 04/06/17 [History] Beclomethasone Dipropionate [Qvar] 2 puff INH BID 04/06/17 [History] Cholecalciferol (Vitamin D3) [Vitamin D] 5,000 unit PO DAILY 07/06/17 [History] Famotidine 40 mg PO BID 07/06/17 [History] Acetaminophen [Tylenol] 650 mg PO Q6H tablet 07/11/17 [Rx] Magnesium Hydroxide [Milk of Magnesia] 30 ml PO DAILY PRN 2 Days #2 ml 07/11/17 [Rx] Hyoscyamine Sulfate [Levsin-Sl] 0.125 mg SL Q4H PRN 12/20/17 [History] Oxybutynin Chloride 5 mg PO BEDTIME 12/20/17 [History] PARoxetine HCl [Paroxetine HCl] 10 mg PO BEDTIME 12/20/17 [History] Promethazine [Phenergan] 25 mg PO Q6H PRN 12/20/17 [History] Sucralfate [Carafate] 1 gm PO QIDPCANDBED 12/20/17 [History] Past Medical History HEENT History: Reports: Allergic Rhinitis, Impaired Vision, Other (See Below) Other HEENT History: enlarged optic nerve Cardiovascular History: Reports: Arrhythmia, Other (See Below) Other Cardiovascular History: tachycardia; PVC's Respiratory History: Reports: Asthma, Sleep Apnea Gastrointestinal History: Reports: Bowel Obstruction, Colon Polyp, GERD, Hemorrhoids, Hiatal Hernia, Pancreatitis, Other (See Below) Other Gastrointestinal History: ulcers, gastroparesis, bezoars, esophageal strictures Genitourinary History: Reports: Renal Calculus, Retention, Urinary, Other (See Below) Other Genitourinary History: 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, Musculoskeletal History: Reports: Fracture, Fibromyalgia Neurological History: Reports: Concussion Psychiatric History: Reports: Anxiety, Depression, Psych Hospitalization(s), PTSD, Suicide Attempt, Other (See Below) Other Psychiatric History: mooddisorder unclasified Endocrine/Metabolic History: Reports: Vitamin D Deficiency, Other (See Below) Other Endocrine/Metabolic History: hypoglycemia Hematologic History: Reports: B12 Deficiency, Iron Deficiency Dermatologic History: Reports: Other (See Below) Other Dermatologic History: skin rashes and acne; abdnormal moles - Infectious Disease History Infectious Disease History: Reports: Chicken Pox, Influenza, Mononucleosis - Past Surgical History HEENT Surgical History: Reports: None, Oral Surgery Cardiovascular Surgical History: Reports: Other (See Below) Other Cardiovascular Surgeries/Procedures: ECHO Respiratory Surgical History: Reports: None GI Surgical History: Reports: Bariatric Procedure, Cholecystectomy, Colonoscopy , EGD, Esophageal Dilatation, Hernia Repair/Other, Felix Fundoplication, Polypectomy, Small Bowel, Other (See Below) Other GI Surgeries/Procedures: fistula, perforation Female Surgical History: Reports: None, Cystectomy, Cystoscopy Endocrine Surgical History: Reports: None Neurological Surgical History: Reports: None Musculoskeletal Surgical History: Reports: None Dermatological Surgical History: Reports: Skin Biopsy Social & Family History - Family History Family Medical History: Noncontributory Cardiac: Reports: CAD Endocrine/Metabolic: Reports: Diabetes, type II - Tobacco Use Smoking Status *Q: Current Some Day Smoker Years of Tobacco use: 15 Packs/Tins Daily: 0.5 - Caffeine Use Caffeine Use: Reports: Coffee, Soda, Tea - Recreational Drug Use Recreational Drug Use: No - Living Situation & Occupation Living situation: Reports: Single, with Family (lives with Mom in [place], [place]. no children.) ED ROS GENERAL - Review of Systems Review Of Systems: See Below Constitutional: Reports: No Symptoms HEENT: Reports: No Symptoms Respiratory: Reports: No Symptoms Cardiovascular: Reports: No Symptoms Endocrine: Reports: No Symptoms GI/Abdominal: Reports: Abdominal Pain : Reports: No Symptoms Musculoskeletal: Reports: No Symptoms Skin: Reports: No Symptoms Neurological: Reports: No Symptoms Psychiatric: Reports: No Symptoms Hematologic/Lymphatic: Reports: No Symptoms Immunologic: Reports: No Symptoms ED EXAM, GI/ABD - Physical Exam Exam: See Below Exam Limited By: No Limitations General Appearance: Alert, No Apparent Distress Ears: Normal External Exam Nose: Normal Inspection Throat/Mouth: Normal Inspection Head: Atraumatic, Normocephalic Neck: Normal Inspection Respiratory/Chest: Lungs Clear, Normal Breath Sounds Cardiovascular: Regular Rate, Rhythm GI/Abdominal Exam: Soft, No Distention, Tender (RUQ). No: Guarding Back Exam: Normal Inspection Extremities: Normal Inspection Neurological: Alert, Oriented Psychiatric: Normal Affect, Normal Mood Skin Exam: Warm, Dry Course - Vital Signs Last Recorded V/S: Last Vital Signs Temp 36.9 C 01/04/19 21:53 Pulse 74 01/04/19 22:52 Resp 16 01/04/19 22:52 BP 97/62 01/04/19 22:52 Pulse Ox 98 01/04/19 22:52 - Orders/Labs/Meds Orders: Active Orders 24 hr Category Date Time Status Iopamidol [Isovue-300 (61%)] Med 01/04/19 23:00 Active 100 ml IV . DIRECTED Sodium Chloride 0.9% [Normal Saline] 100 ml Med 01/04/19 23:00 Active IV ASDIRECTED Medication Orders Sodium Chloride (Normal Saline) 100 mls @ 3 mls/sec IV ASDIRECTED VALERY Last Admin: 01/04/19 23:13 Dose: 3 mls/sec Iopamidol (Isovue-300 (61%)) 100 ml IV . DIRECTED VLAERY Last Admin: 01/04/19 23:12 Dose: 100 ml Labs: Laboratory Tests 01/04/19 01/04/19 Range/Units 22:22 22:22 WBC 6.0 (4.5-11.0) K/uL RBC 3.31 (3.30-5.50) M/uL Hgb 9.8 L (12.0-15.0) g/dL Hct 31.0 L (36.0-48.0) % MCV 94 (80-98) fL MCH 30 (27-31) pg MCHC 32 (32-36) % Plt Count 271 (150-400) K/uL Sodium 141 (140-148) mmol/L Potassium 3.4 L (3.6-5.2) mmol/L Chloride 107 (100-108) mmol/L Carbon Dioxide 27 (21-32) mmol/L Anion Gap 10.4 (5.0-14.0) mmol/L BUN 10 D (7-18) mg/dL Creatinine 0.6 (0.6-1.0) mg/dL Est Cr Clr Drug Dosing 111.39 mL/min Estimated GFR (MDRD) > 60 (>60) Glucose 83 (74-106) mg/dL Calcium 8.4 L (8.5-10.1) mg/dL Total Bilirubin 0.2 (0.2-1.0) mg/dL AST 12 L D (15-37) U/L ALT 20 D (12-78) U/L Alkaline Phosphatase 122 H (46-116) U/L Total Protein 6.5 (6.4-8.2) g/dL Albumin 3.0 L (3.4-5.0) g/dL Globulin 3.5 (2.3-3.5) g/dL Albumin/Globulin Ratio 0.9 L (1.2-2.2) Lipase 188 (73-393) U/L Meds: Medications Generic Name Dose Route Start Last Admin Trade Name Freq PRN Reason Stop Dose Admin Sodium Chloride 100 mls @ 3 mls/sec 01/04/19 23:00 01/04/19 23:13 Normal Saline IV 3 mls/sec ASDIRECTED VALERY Administration Iopamidol 100 ml 01/04/19 23:00 01/04/19 23:12 Isovue-300 (61%) IV 100 ml . DIRECTED VALERY Administration Discontinued Medications Generic Name Dose Route Start Last Admin Trade Name Freq PRN Reason Stop Dose Admin Hydromorphone HCl 1 mg 01/04/19 22:32 01/04/19 22:51 Dilaudid IVPUSH 01/04/19 22:33 1 mg ONETIME ONE Administration Ondansetron HCl 4 mg 01/04/19 22:32 01/04/19 22:50 Zofran IVPUSH 01/04/19 22:33 4 mg ONETIME ONE Administration Sodium Chloride 10 ml 01/04/19 22:51 Saline Flush FLUSH 01/04/19 22:52 ONETIME ONE - Re-Assessments/Exams Free Text/Narrative Re-Assessment/Exam: 28 yo with complex surgical history presents with concerns of abdominal pain. Stable vitals. RUQ abdominal tenderness on exam. She is high risk for surgical abdominal process, has had complications from gastric bypass in the past. Will obtain abdominal labs, CT abdomen, IVF and pain control. 01/04/19 22:49 Free Text/Narrative Re-Assessment/Exam: Labs unremarkable Imaging shows possible infectious colitis - this could fit with her symptoms. Safe for discharge. Instructed on dietary changes. Will return for worsening. PCP f/u prn. 01/05/19 00:56 Departure - Departure Time of Disposition: 00:57 Disposition: Home, Self-Care 01 Condition: Good Clinical Impression: Infectious colitis - Discharge Information Instructions: Viral Gastroenteritis, Adult Referrals: PCP,None [Primary Care Provider] - Forms: ED Department Discharge Additional Instructions: Please follow up with your doctor as needed this week. Eat a bland diet as discussed. Return to the ER for worsening. - My Orders Last 24 Hours: My Active Orders 01/04/19 23:00 Iopamidol [Isovue-300 (61%)] 100 ml IV . DIRECTED Sodium Chloride 0.9% [Normal Saline] 100 ml IV ASDIRECTED - Assessment/Plan Last 24 Hours: My Active Orders 01/04/19 23:00 Iopamidol [Isovue-300 (61%)] 100 ml IV . DIRECTED Sodium Chloride 0.9% [Normal Saline] 100 ml IV ASDIRECTED
[2019-01-04] MEDS ORDERED: Sodium Chloride 0.9% 10 ML Syringe FLUSH ONE (22:51)
[2019-01-04 22:53] VITALS: BP 97/62; PULSE 74
[2019-01-04] MEDS ORDERED: Sodium Chloride 0.9% 100 ML IV SCH (23:00)
[2019-01-04] MEDS ORDERED: Iopamidol 612 MG/ML 100 ML Bottle IV SCH (23:00)
--- NOTE | 2019-01-04 23:49 | CRLCT ---
INDICATION: Right upper quadrant pain TECHNIQUE: CT Abdomen and pelvis with i.v. contrast. Coronal and sagittal reformats were obtained. CONTRAST: 78 mL Isovue 300 COMPARISON: 04/01/2018 FINDINGS: Lower chest: Unremarkable. Liver: Unremarkable. Spleen: Unremarkable. Pancreas: Unremarkable. Gallbladder: Previous cholecystectomy noted with mild intra and extrahepatic biliary ductal dilatation seen. Kidney: Unremarkable. No kidney or ureteral stones or obstruction seen. Adrenal: Unremarkable. Bowel: Patient status post gastric bypass. The colon is collapsed and difficult to evaluate but there is suspected wall thickening present in the hepatic flexure and proximal transverse colon. The appendix is normal in appearance and size. Vascular: Unremarkable. Lymph: Unremarkable. Peritoneum: Unremarkable. No pneumoperitoneum is seen. No significant ascites is noted. Pelvis: Unremarkable. Soft tissue: Unremarkable. Bone: Unremarkable for age. IMPRESSION: 1. The colon is collapsed and difficult to evaluate but there is suspected wall thickening present in the hepatic flexure and proximal transverse colon. Findings may be due to infectious colitis or inflammatory bowel disease. Dictated by Ortiz Eagle MD @ 01/04/2019 11:48:00 PM Please note that all CT scans at this facility use dose modulation, iterative reconstruction, and/or weight-based dosing when appropriate to reduce radiation dose to as low as reasonably achievable. Dictated by: Ortiz Eagle MD @ 01/04/2019 23:48:10 (Electronically Signed)
== END 2019-01-05 01:36 | disposition home or self-care (01) ==
LOC: EEVIPCON 21:34 → JP.ED 21:34
DX: A09 Infectious gastroenteritis and colitis, unspecified (principal); J45.909 Unspecified asthma, uncomplicated; K21.9 Gastro-esophageal reflux disease without esophagitis; F41.9 Anxiety disorder, unspecified; F32.9 Major depressive disorder, single episode, unspecified; F17.210 Nicotine dependence, cigarettes, uncomplicated; Z88.1 Allergy status to other antibiotic agents; Z88.0 Allergy status to penicillin; Z88.8 Allergy status to other drugs, medicaments and biological substances; Z79.899 Other long term (current) drug therapy; Z87.442 Personal history of urinary calculi
CPT/HCPCS: 36415; 74177; 80053; 83690; 85027; 96374; 96375; 99284; J1170; J2405; J7030; Q9967; 99283

== ENCOUNTER 2019-05-30 17:54 | Emergency (ER) | payer MEDICAID ==
[2019-05-30 17:55] VITALS: BP 116/72; PULSE 96
--- NOTE | 2019-05-30 19:20 | CRLCT ---
INDICATION: Fall with report of recent subdural hematoma. TECHNIQUE: CT Head without contrast. COMPARISON: None available. FINDINGS: CSF spaces: Within normal limits for age. Brain parenchyma: The heard-white differentiation is normal. No sign of mass, hemorrhage, or midline shift. Skull base and calvarium: The visualized paranasal sinuses and mastoid air cells are clear. The visualized orbits are grossly unremarkable. No skull fractures. . IMPRESSION: Unremarkable noncontrast head CT. Please note that all CT scans at this facility use dose modulation, iterative reconstruction, and/or weight-based dosing when appropriate to reduce radiation dose to as low as reasonably achievable. Dictated by Scott Ma MD @ May 30 2019 7:15PM Signed by Dr. Scott Ma @ May 30 2019 7:18PM
--- NOTE | 2019-05-30 19:25 | EDM.PDOC ---
ED HPI GENERAL MEDICAL PROBLEM - General Chief Complaint: Head Injury Stated Complaint: HEAD Time Seen by Provider: 05/30/19 18:00 Source of Information: Reports: Patient, Family History Limitations: Reports: No Limitations - History of Present Illness INITIAL COMMENTS - FREE TEXT/NARRATIVE: 28-year-old female who was recently hospitalized for a subtle subdural hematoma , discharged 3 days ago fell again today and bumped her head and wanted to be checked. Has an increase in her headache and is asking for pain medication. Nausea but no vomiting, no neurologic deficits other than generalized weakness. We did review her records from [place]. Onset: Sudden Duration: Hour(s): (About 1 hour ago was when she fell and hit her head) Location: Reports: Head Associated Symptoms: Reports: Other (Mild nausea, blurred vision, headache) Headache Pain Score (Numeric/FACES): 8 - Related Data Allergies Allergy/AdvReac Type Severity Reaction Status Date / Time amoxicillin [Amoxicillin] Allergy Unknown Rash Verified 01/17/19 22:02 Penicillins Allergy Unknown Rash Verified 01/17/19 22:02 Aminoglycosides Allergy Cannot Verified 01/17/19 22:02 Remember levofloxacin Allergy Rash Verified 01/17/19 22:02 metoclopramide [From Reglan] Allergy Cannot Verified 01/17/19 22:02 Remember prochlorperazine edisylate AdvReac Intermediate Tachycardia Verified 01/17/19 22 :02 [From Compazine] prochlorperazine maleate AdvReac Intermediate Tachycardia Verified 01/17/19 22: 02 [From Compazine] cephalexin monohydrate AdvReac Unknown Vomiting Verified 01/17/19 22:02 [From Keflex] erythromycin base AdvReac Unknown Abdominal Verified 01/17/19 22:02 [Erythromycin Base] Pain lidocaine AdvReac Nausea and Verified 01/17/19 22:02 Vomiting Home Meds: Home Meds Ondansetron HCl [Ondansetron] 4 mg PO Q8HR PRN 02/20/13 [History] Albuterol Sulfate [Proair Hfa] 2 puff IH Q4H PRN 04/16/13 [History] Calcium Carbonate [Tums] 500 mg PO DAILY 02/02/17 [History] QUEtiapine [SEROquel] 200 mg PO BEDTIME 02/02/17 [History] Acetaminophen [Tylenol] 650 mg PO Q6H PRN 04/06/17 [History] Cholecalciferol (Vitamin D3) [Vitamin D] 5,000 unit PO DAILY 07/06/17 [History] Famotidine 40 mg PO BID 07/06/17 [History] PARoxetine HCl [Paroxetine HCl] 10 mg PO BEDTIME 12/20/17 [History] Methylcellulose (with Sugar) [Citrucel] 1 tbsp PO BID 01/17/19 [History] Mirtazapine 30 mg PO BEDTIME 01/17/19 [History] oxyCODONE 5 mg PO Q6H PRN 05/30/19 [History] Past Medical History HEENT History: Reports: Allergic Rhinitis, Impaired Vision, Other (See Below) Other HEENT History: enlarged optic nerve Cardiovascular History: Reports: Arrhythmia, Other (See Below) Other Cardiovascular History: tachycardia; PVC's Respiratory History: Reports: Asthma, Sleep Apnea Gastrointestinal History: Reports: Bowel Obstruction, Colon Polyp, GERD, Hemorrhoids, Hiatal Hernia, Pancreatitis, Other (See Below) Other Gastrointestinal History: ulcers, gastroparesis, bezoars, esophageal strictures Genitourinary History: Reports: Renal Calculus, Retention, Urinary, Other (See Below) Other Genitourinary History: PCOS 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: Reports: Polycystic Ovaries, Musculoskeletal History: Reports: Fracture, Fibromyalgia Neurological History: Reports: Concussion Psychiatric History: Reports: Anxiety, Depression, Psych Hospitalization(s), PTSD, Suicide Attempt, Other (See Below) Other Psychiatric History: mooddisorder unclasified Endocrine/Metabolic History: Reports: Vitamin D Deficiency, Other (See Below) Other Endocrine/Metabolic History: hypoglycemia Hematologic History: Reports: B12 Deficiency, Iron Deficiency Dermatologic History: Reports: Other (See Below) Other Dermatologic History: skin rashes and acne; abdnormal moles - Infectious Disease History Infectious Disease History: Reports: Chicken Pox, Influenza, Mononucleosis - Past Surgical History Head Surgeries/Procedures: Reports: None HEENT Surgical History: Reports: None, Oral Surgery Cardiovascular Surgical History: Reports: Other (See Below) Other Cardiovascular Surgeries/Procedures: ECHO Respiratory Surgical History: Reports: None GI Surgical History: Reports: Bariatric Procedure, Cholecystectomy, Colonoscopy , EGD, Esophageal Dilatation, Hernia Repair/Other, Felix Fundoplication, Polypectomy, Small Bowel, Other (See Below) Other GI Surgeries/Procedures: fistula, perforation Female Surgical History: Reports: None, Cystectomy, Cystoscopy Endocrine Surgical History: Reports: None Neurological Surgical History: Reports: None Musculoskeletal Surgical History: Reports: None Dermatological Surgical History: Reports: Skin Biopsy Social & Family History - Family History Family Medical History: Noncontributory Cardiac: Reports: CAD Endocrine/Metabolic: Reports: Diabetes, type II - Tobacco Use Smoking Status *Q: Never Smoker - Caffeine Use Caffeine Use: Reports: Coffee, Soda - Recreational Drug Use Recreational Drug Use: No - Living Situation & Occupation Living situation: Reports: Single, with Family (lives with Mom in [place], [place]. no children.) ED ROS GENERAL - Review of Systems Review Of Systems: See Below Constitutional: Denies: Fever, Chills HEENT: Reports: Vision Change (Intermittent blurred vision) Respiratory: Denies: Shortness of Breath Cardiovascular: Denies: Chest Pain GI/Abdominal: Reports: Nausea. Denies: Abdominal Pain, Vomiting Skin: Reports: No Symptoms Neurological: Reports: Headache ED EXAM, HEAD INJURY - Physical Exam Exam: See Below Exam Limited By: No Limitations General Appearance: Alert, No Apparent Distress Head: Atraumatic (I cannot find any evidence of external head trauma) Eyes: Bilateral Eye: EOMI, PERRL Neck: Non-Tender Respiratory: No Respiratory Distress, Lungs Clear Cardiovascular: Regular Rate, Rhythm Neurologic: No Motor/Sensory Deficits, Oriented x 3 - [place] Coma Score Best Eye Response ([place]): (4) Open Spontaneously Best Verbal Response ([place]): (5) Oriented Best Motor Response ([place]): (6) Obeys Commands Course - Vital Signs Last Recorded V/S: Last Vital Signs Temp 97.2 F 05/30/19 17:57 Pulse 96 05/30/19 17:57 Resp 18 05/30/19 17:57 BP 116/72 05/30/19 17:57 Pulse Ox 98 05/30/19 17:57 - Re-Assessments/Exams Free Text/Narrative Re-Assessment/Exam: 05/30/19 19:[address] without contrast was obtained which is now completely normal. Reviewing the head CT from [place], findings were very subtle and minimal. Patient continually asked for pain medication while she was here because the oxycodone is "not working". With a normal head CT I think it is reasonable to add anti-inflammatories which was advised, no new treatment given here. Departure - Departure Time of Disposition: 19:48 Disposition: Home, Self-Care 01 Clinical Impression: Headache Qualifiers: Headache type: post-traumatic Headache chronicity pattern: unspecified pattern Intractability: not intractable Qualified Code(s): G44.309 - Post-traumatic headache, unspecified, not intractable - Discharge Information Instructions: Head Injury, Adult, [id number] Referrals: PCP,None [Primary Care Provider] - Forms: ED Department Discharge Care Plan Goals: Rest, increase activity as tolerated, and use ibuprofen or naproxen along with your prescribed pain medicine as needed. Recheck early next week if not improving satisfactorily. Sepsis Event Note - Evaluation Sepsis Screening Result: No Definite Risk - Focused Exam Vital Signs: Vital Signs Temp Pulse Resp BP Pulse Ox 05/30/19 17:57 97.2 F 96 18 116/72 98 05/30/19 17:52 97.2 F 96 18 116/72 98 Date Exam was Performed: 05/30/19 Time Exam was Performed: 20:53
== END 2019-05-30 19:48 | disposition home or self-care (01) ==
LOC: JP.ED 17:54
DX: G44.309 Post-traumatic headache, unspecified, not intractable (principal); J45.909 Unspecified asthma, uncomplicated; Z98.890 Other specified postprocedural states; Z98.84 Bariatric surgery status; Z90.49 Acquired absence of other specified parts of digestive tract; Z88.1 Allergy status to other antibiotic agents; Z88.8 Allergy status to other drugs, medicaments and biological substances; Z88.0 Allergy status to penicillin
CPT/HCPCS: 70450; 99282; 99284-25

== ENCOUNTER 2020-07-18 16:33 | Emergency (ER) | payer MEDICAID ==
[2020-07-18 17:17] VITALS: BP 138/80; PULSE 113
[2020-07-18] MEDS ORDERED: Acetaminophen/HYDROcodone 325-5 MG Tab PO ONE (17:21)
--- NOTE | 2020-07-18 17:41 | EDM.PDOC ---
ED HPI GENERAL MEDICAL PROBLEM - General Chief Complaint: Upper Extremity Injury/Pain Stated Complaint: LEFT HAND POSTSURGICAL PAIN Time Seen by Provider: 07/18/20 17:10 Source of Information: Reports: Patient, Old Records, RN History Limitations: Reports: No Limitations - History of Present Illness INITIAL COMMENTS - FREE TEXT/NARRATIVE: 29 yo female recently had extensor tendon repair in [place] at [facility], [place]. Was discharged on Sunday from her surgery with an Rx for hydrocodone/APAP. She went to the pharmacy and they would not fill it as the insurance company had no approved it yet. She offered to pay gómez and they wouldn't allow that. Has not slept since surgery due to the pain. Onset: Sudden Onset Date: 07/16/20 Duration: Day(s): (2), Constant Location: Reports: Upper Extremity, Left Quality: Reports: Burning Severity: Moderate Improves with: Reports: None Worsens with: Reports: None Context: Reports: Trauma (surgery) Associated Symptoms: Reports: No Other Symptoms Treatments SCOOPER: Reports: Other (see below) (none) Left Hand Pain Score (Numeric/FACES): 9 - Related Data Allergies Allergy/AdvReac Type Severity Reaction Status Date / Time amoxicillin [Amoxicillin] Allergy Unknown Rash Verified 01/17/19 22:02 Penicillins Allergy Unknown Rash Verified 01/17/19 22:02 Aminoglycosides Allergy Cannot Verified 01/17/19 22:02 Remember levofloxacin Allergy Rash Verified 01/17/19 22:02 metoclopramide [From Reglan] Allergy Cannot Verified 01/17/19 22:02 Remember prochlorperazine edisylate AdvReac Intermediate Tachycardia Verified 01/17/19 22:02 [From Compazine] prochlorperazine maleate AdvReac Intermediate Tachycardia Verified 01/17/19 22:02 [From Compazine] cephalexin monohydrate AdvReac Unknown Vomiting Verified 01/17/19 22:02 [From Keflex] erythromycin base AdvReac Unknown Abdominal Verified 01/17/19 22:02 [Erythromycin Base] Pain lidocaine AdvReac Nausea and Verified 01/17/19 22:02 Vomiting Home Meds: Home Meds ondansetron HCL [Ondansetron] 4 mg PO Q8HR PRN 02/20/13 [History] Albuterol Sulfate [Proair Hfa] 2 puff IH Q4H PRN 04/16/13 [History] Calcium Carbonate [Tums] 500 mg PO DAILY 02/02/17 [History] QUEtiapine [SEROquel] 200 mg PO BEDTIME 02/02/17 [History] Acetaminophen [Tylenol] 650 mg PO Q6H PRN 04/06/17 [History] Cholecalciferol (Vitamin D3) [Vitamin D] 5,000 unit PO DAILY 07/06/17 [History] Famotidine 40 mg PO BID 07/06/17 [History] PARoxetine HCL [Paroxetine HCl] 10 mg PO BEDTIME 12/20/17 [History] Methylcellulose (with Sugar) [Citrucel] 1 tbsp PO BID 01/17/19 [History] Mirtazapine 30 mg PO BEDTIME 01/17/19 [History] Past Medical History HEENT History: Reports: Allergic Rhinitis, Impaired Vision, Other (See Below) Other HEENT History: enlarged optic nerve Cardiovascular History: Reports: Arrhythmia, Other (See Below) Other Cardiovascular History: tachycardia; PVC's Respiratory History: Reports: Asthma, Sleep Apnea Gastrointestinal History: Reports: Bowel Obstruction, Colon Polyp, GERD, Hemorrhoids, Hiatal Hernia, Pancreatitis, Other (See Below) Other Gastrointestinal History: ulcers, gastroparesis, bezoars, esophageal strictures Genitourinary History: Reports: Renal Calculus, Retention, Urinary, Other (See Below) Other Genitourinary History: PCOS 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: Polycystic Ovaries, Musculoskeletal History: Reports: Fracture, Fibromyalgia Neurological History: Reports: Concussion Psychiatric History: Reports: Anxiety, Depression, Psych Hospitalization(s), PTSD, Suicide Attempt, Other (See Below) Other Psychiatric History: mooddisorder unclasified Endocrine/Metabolic History: Reports: Vitamin D Deficiency, Other (See Below) Other Endocrine/Metabolic History: hypoglycemia Hematologic History: Reports: B12 Deficiency, Iron Deficiency Dermatologic History: Reports: Other (See Below) Other Dermatologic History: skin rashes and acne; abdnormal moles - Infectious Disease History Infectious Disease History: Reports: Chicken Pox, Influenza, Mononucleosis - Past Surgical History Head Surgeries/Procedures: Reports: None HEENT Surgical History: Reports: None, Oral Surgery Cardiovascular Surgical History: Reports: Other (See Below) Other Cardiovascular Surgeries/Procedures: ECHO Respiratory Surgical History: Reports: None GI Surgical History: Reports: Bariatric Procedure, Cholecystectomy, Colonoscopy, EGD, Esophageal Dilatation, Hernia Repair/Other, Felix Fundoplication, Polypectomy, Small Bowel, Other (See Below) Other GI Surgeries/Procedures: fistula, perforation Female Surgical History: Reports: None, Cystectomy, Cystoscopy Endocrine Surgical History: Reports: None Neurological Surgical History: Reports: None Musculoskeletal Surgical History: Reports: None Dermatological Surgical History: Reports: Skin Biopsy Social & Family History - Family History Family Medical History: No Pertinent Family History Cardiac: Reports: CAD Endocrine/Metabolic: Reports: Diabetes, type II - Tobacco Use Tobacco Use Status *Q: Current Every Day Tobacco User Years of Tobacco use: 10 Packs/Tins Daily: 0.5 - Caffeine Use Caffeine Use: Reports: Coffee, Soda - Recreational Drug Use Recreational Drug Use: No - Living Situation & Occupation Living situation: Reports: Single, with Family (lives with Mom in [place], [place]. no children.) Review of Systems - Review of Systems Review Of Systems: See Below Constitutional: Reports: No Symptoms Musculoskeletal: Reports: Hand Pain (L long finger) Skin: Reports: Wound (surgical) Neurological: Reports: No Symptoms ED EXAM, GENERAL - Physical Exam Exam: See Below Exam Limited By: No Limitations General Appearance: Alert, WD/WN, No Apparent Distress Extremities: No Pedal Edema, Limited Range of Motion (due to splint/dressing). No: Joint Swelling, Increased Warmth, Redness Neurological: Alert, Oriented, CN II-XII Intact, Normal Cognition, No Motor/Sensory Deficits Psychiatric: Normal Affect, Normal Mood Skin Exam: Warm, Dry, Normal Color, No Rash, Wound/Incision (surgical, no redness). No: Ecchymosis, Erythema Course - Vital Signs Last Recorded V/S: Last Vital Signs Temp 34.8 C L 07/18/20 16:51 Pulse 113 H 07/18/20 16:51 Resp 16 07/18/20 16:51 BP 138/80 07/18/20 16:51 Pulse Ox 100 07/18/20 16:51 - Orders/Labs/Meds Meds: Medications Discontinued Medications Generic Name Dose Route Start Last Admin Trade Name Freq PRN Reason Stop Dose Admin Hydrocodone Bitart/Acetaminophen 2 tab 07/18/20 17:21 07/18/20 17:28 [place] 325-5 Mg PO 07/18/20 17:22 2 tab ONETIME ONE Administration Departure - Departure Time of Disposition: 17:42 Disposition: Home, Self-Care 01 Condition: Good Clinical Impression: Post-op pain - Discharge Information *PRESCRIPTION DRUG MONITORING PROGRAM REVIEWED*: Yes *COPY OF PRESCRIPTION DRUG MONITORING REPORT IN PATIENT MICHAELLE: Yes Referrals: PCP,None [Primary Care Provider] - Additional Instructions: Take acetaminophen per package directions for pain relief after 11:30 pm tonight. May use also ibuprofen 600 mg every 6 hrs with food for added relief. Keep your hand elevated. Work with your provider tomorrow on getting your insurance company to approve your prescription. Sepsis Event Note (ED) - Evaluation Sepsis Screening Result: No Definite Risk - Focused Exam Vital Signs: Vital Signs Temp Pulse Resp BP Pulse Ox 07/18/20 16:51 34.8 C L 113 H 16 138/80 100
== END 2020-07-18 17:48 | disposition home or self-care (01) ==
LOC: JP.ED 16:33
DX: G89.18 Other acute postprocedural pain (principal); M79.642 Pain in left hand; J45.909 Unspecified asthma, uncomplicated; K21.9 Gastro-esophageal reflux disease without esophagitis; Z72.0 Tobacco use; Z88.0 Allergy status to penicillin; Z88.8 Allergy status to other drugs, medicaments and biological substances; Z88.1 Allergy status to other antibiotic agents; Z79.899 Other long term (current) drug therapy
CPT/HCPCS: 99283; A9270

== ENCOUNTER 2020-09-13 17:59 | Emergency (ER) | payer MEDICAID ==
[2020-09-13] MEDS ORDERED: Sodium Chloride 0.9% 1,000 ML IV STA (18:29)
[2020-09-13] MEDS ORDERED: Sodium Chloride 0.9% 10 ML Syringe FLUSH PRN (18:29)
[2020-09-13] MEDS ORDERED: Ondansetron 4 MG/2 ML SDV IVPUSH ONE (18:30)
[2020-09-13] MEDS ORDERED: HYDROmorphone 0.5 MG/0.5 ML Syringe IVPUSH ONE (18:30)
--- NOTE | 2020-09-13 18:34 | EDM.PDOC ---
ED HPI GENERAL MEDICAL PROBLEM - General Chief Complaint: Abdominal Pain Stated Complaint: ABD PAIN Time Seen by Provider: 09/13/20 18:23 Source of Information: Reports: Patient, RN Notes Reviewed History Limitations: Reports: No Limitations - History of Present Illness INITIAL COMMENTS - FREE TEXT/NARRATIVE: 30-year-old female presents emergency department a complaint of abdominal pain she has an extensive abdominal surgery history including gastric bypass states the pain started this morning she does have nausea she still passing gas still having regular bowel movements ruq abdominal Pain Score (Numeric/FACES): 6 - Related Data Allergies Allergy/AdvReac Type Severity Reaction Status Date / Time amoxicillin [Amoxicillin] Allergy Unknown Rash Verified 09/13/20 18:08 Penicillins Allergy Unknown Rash Verified 09/13/20 18:08 Aminoglycosides Allergy Cannot Verified 09/13/20 18:08 Remember droperidol Allergy Anxiety Verified 09/13/20 18:08 levofloxacin Allergy Rash Verified 09/13/20 18:08 metoclopramide [From Reglan] Allergy Cannot Verified 09/13/20 18:08 Remember prochlorperazine edisylate AdvReac Intermediate Tachycardia Verified 09/13/20 18:08 [From Compazine] prochlorperazine maleate AdvReac Intermediate Tachycardia Verified 09/13/20 18:08 [From Compazine] cephalexin monohydrate AdvReac Unknown Vomiting Verified 09/13/20 18:08 [From Keflex] erythromycin base AdvReac Unknown Abdominal Verified 09/13/20 18:08 [Erythromycin Base] Pain lidocaine AdvReac Nausea and Verified 09/13/20 18:08 Vomiting Home Meds: Home Meds ondansetron HCL [Ondansetron] 4 mg PO Q8HR PRN 02/20/13 [History] Albuterol Sulfate [Proair Hfa] 2 puff IH Q4H PRN 04/16/13 [History] Calcium Carbonate [Tums] 500 mg PO DAILY 02/02/17 [History] QUEtiapine [SEROquel] 200 mg PO BEDTIME 02/02/17 [History] Acetaminophen [Tylenol] 650 mg PO Q6H PRN 04/06/17 [History] Cholecalciferol (Vitamin D3) [Vitamin D] 5,000 unit PO DAILY 07/06/17 [History] Famotidine 40 mg PO BID 07/06/17 [History] PARoxetine HCL [Paroxetine HCl] 10 mg PO BEDTIME 12/20/17 [History] Methylcellulose (with Sugar) [Citrucel] 1 tbsp PO BID 01/17/19 [History] ClonazePAM [KlonoPIN] 0.5 mg PO TID 09/13/20 [History] Zolpidem Tartrate [Ambien] 10 mg PO DAILY 09/13/20 [History] Past Medical History HEENT History: Reports: Allergic Rhinitis, Impaired Vision, Other (See Below) Other HEENT History: enlarged optic nerve Cardiovascular History: Reports: Arrhythmia, Other (See Below) Other Cardiovascular History: tachycardia; PVC's Respiratory History: Reports: Asthma, Sleep Apnea Gastrointestinal History: Reports: Bowel Obstruction, Colon Polyp, GERD, Hemorrhoids, Hiatal Hernia, Pancreatitis, Other (See Below) Other Gastrointestinal History: ulcers, gastroparesis, bezoars, esophageal strictures Genitourinary History: Reports: Renal Calculus, Retention, Urinary, Other (See Below) Other Genitourinary History: PCOS [employer] History: Reports: Polycystic Ovaries, Musculoskeletal History: Reports: Fracture, Fibromyalgia Neurological History: Reports: Concussion Psychiatric History: Reports: Anxiety, Depression, Psych Hospitalization(s), PTSD, Suicide Attempt, Other (See Below) Other Psychiatric History: mooddisorder unclasified Endocrine/Metabolic History: Reports: Vitamin D Deficiency, Other (See Below) Other Endocrine/Metabolic History: hypoglycemia Hematologic History: Reports: B12 Deficiency, Iron Deficiency Dermatologic History: Reports: Other (See Below) Other Dermatologic History: skin rashes and acne; abdnormal moles - Infectious Disease History Infectious Disease History: Reports: Chicken Pox, Influenza, Mononucleosis - Past Surgical History Head Surgeries/Procedures: Reports: None HEENT Surgical History: Reports: None, Oral Surgery Cardiovascular Surgical History: Reports: Other (See Below) Other Cardiovascular Surgeries/Procedures: ECHO Respiratory Surgical History: Reports: None GI Surgical History: Reports: Bariatric Procedure, Cholecystectomy, Colonoscopy, EGD, Esophageal Dilatation, Hernia Repair/Other, Felix Fundoplication, Polypectomy, Small Bowel, Other (See Below) Other GI Surgeries/Procedures: fistula, perforation Female Surgical History: Reports: None, Cystectomy, Cystoscopy Endocrine Surgical History: Reports: None Neurological Surgical History: Reports: None Musculoskeletal Surgical History: Reports: None Dermatological Surgical History: Reports: Skin Biopsy Social & Family History - Family History Family Medical History: No Pertinent Family History Cardiac: Reports: CAD Endocrine/Metabolic: Reports: Diabetes, type II - Tobacco Use Tobacco Use Status *Q: Current Every Day Tobacco User Years of Tobacco use: 10 Packs/Tins Daily: 0.2 - Caffeine Use Caffeine Use: Reports: Coffee, Soda - Recreational Drug Use Recreational Drug Use: No - Living Situation & Occupation Living situation: Reports: Single, with Family (lives with Mom in [place], [place]. no children.) ED ROS GENERAL - Review of Systems Review Of Systems: See Below Constitutional: Reports: No Symptoms HEENT: Reports: No Symptoms Respiratory: Reports: No Symptoms Cardiovascular: Reports: No Symptoms GI/Abdominal: Reports: Abdominal Pain, Flatus, Nausea. Denies: Constipation, Diarrhea : Reports: No Symptoms ED EXAM, GI/ABD - Physical Exam Exam: See Below Exam Limited By: No Limitations General Appearance: Alert, WD/WN, No Apparent Distress Respiratory/Chest: No Respiratory Distress, Lungs Clear, Normal Breath Sounds, No Accessory Muscle Use, Chest Non-Tender Cardiovascular: Regular Rate, Rhythm, No Murmur GI/Abdominal Exam: Normal Bowel Sounds, Soft, No Distention, No Abnormal Bruit, Tender (RUQ) Course - Vital Signs Last Recorded V/S: Last Vital Signs Temp 99 F 09/13/20 18:12 Pulse 85 09/13/20 19:03 Resp 12 09/13/20 19:03 BP 104/62 09/13/20 19:03 Pulse Ox 100 09/13/20 19:03 - Orders/Labs/Meds Orders: Active Orders 24 hr Category Date Time Status Peripheral IV Care [RC] . DIRECTED Care 09/13/20 18:29 Active CULTURE URINE [RM] Urgent Lab 09/13/20 20:12 Received Iopamidol [Isovue-300 (61%)] Med 09/13/20 18:45 Active 75 ml IV . DIRECTED Sodium Chloride 0.9% [Normal Saline] 1,000 ml Med 09/13/20 18:29 Active IV .BOLUS Sodium Chloride 0.9% [Normal Saline] 70 ml Med 09/13/20 18:45 Active IV ASDIRECTED Sodium Chloride 0.9% [Saline Flush] Med 09/13/20 18:29 Active 10 ml FLUSH ASDIRECTED PRN Peripheral IV Insertion Adult [OM.PC] Urgent Oth 09/13/20 18:29 Ordered Medication Orders Sodium Chloride (Normal Saline) 1,000 mls @ 500 mls/hr IV .BOLUS STA Stop: 09/13/20 20:28 Last Admin: 09/13/20 18:46 Dose: 500 mls/hr Documented by: YAZ Sodium Chloride (Normal Saline) 70 mls @ 3 mls/sec IV ASDIRECTED VALERY Iopamidol (Iopamidol 612 Mg/Ml 100 Ml Bottle) 75 ml IV . DIRECTED VALERY Last Admin: 09/13/20 19:42 Dose: 75 ml Documented by: GIA Sodium Chloride (Sodium Chloride 0.9% 10 Ml Syringe) 10 ml FLUSH ASDIRECTED PRN PRN Reason: Keep Vein Open Labs: Laboratory Tests 09/13/20 09/13/20 09/13/20 Range/Units 18:35 18:35 18:35 WBC 5.1 (4.5-11.0) K/uL RBC 3.68 (3.30-5.50) M/uL Hgb 11.6 L (12.0-15.0) g/dL Hct 35.5 L (36.0-48.0) % MCV 97 (80-98) fL MCH 32 H (27-31) pg MCHC 33 (32-36) % Plt Count 202 (150-400) K/uL Neut % (Auto) 45 (36-66) % Lymph % (Auto) 37 (24-44) % [place] % (Auto) 14 H (2-6) % Eos % (Auto) 3 (2-4) % Baso % (Auto) 1 (0-1) % Sodium 143 (140-148) mmol/L Potassium 4.2 (3.6-5.2) mmol/L Chloride 107 (100-108) mmol/L Carbon Dioxide 24 (21-32) mmol/L Anion Gap 11.8 (5.0-14.0) mmol/L BUN 13 (7-18) mg/dL Creatinine 0.7 (0.5-1.0) mg/dL Est Cr Clr Drug Dosing 93.79 mL/min Estimated GFR (MDRD) > 60 (>60) BUN/Creatinine Ratio Not Reportable Glucose 85 (74-106) mg/dL Lactic Acid 1.4 (0.4-2.0) mmol/L Calcium 9.2 (8.5-10.1) mg/dL Total Bilirubin 0.1 L (0.2-1.0) mg/dL AST 16 (15-37) U/L ALT 52 (12-78) U/L Alkaline Phosphatase 170 H (46-116) U/L Total Protein 6.4 (6.4-8.2) g/dL Albumin 3.4 (3.4-5.0) g/dL Globulin 3.0 (2.3-3.5) g/dL Albumin/Globulin Ratio 1.1 L (1.2-2.2) Lipase 106 (73-393) U/L Urine Color (YELLOW) Urine Appearance (CLEAR) Urine pH (5.0-8.0) Ur Specific [place] (1.008-1.030) Urine Protein (NEGATIVE) mg/dL Urine Glucose (UA) (NEGATIVE) mg/dL Urine Ketones (NEGATIVE) mg/dL Urine Occult Blood (NEGATIVE) Urine Nitrite (NEGATIVE) Urine Bilirubin (NEGATIVE) Urine Urobilinogen (0.2-1.0) EU/dL Ur Leukocyte Esterase (NEGATIVE) Urine RBC (0-5) Urine WBC (0-5) Ur Epithelial Cells Amorphous Sediment Urine Bacteria Urine Mucus Urine Other Urine HCG, Qual 09/13/20 09/13/20 Range/Units 19:15 19:15 WBC (4.5-11.0) K/uL RBC (3.30-5.50) M/uL Hgb (12.0-15.0) g/dL Hct (36.0-48.0) % MCV (80-98) fL MCH (27-31) pg MCHC (32-36) % Plt Count (150-400) K/uL Neut % (Auto) (36-66) % Lymph % (Auto) (24-44) % [place] % (Auto) (2-6) % Eos % (Auto) (2-4) % Baso % (Auto) (0-1) % Sodium (140-148) mmol/L Potassium (3.6-5.2) mmol/L Chloride (100-108) mmol/L Carbon Dioxide (21-32) mmol/L Anion Gap (5.0-14.0) mmol/L BUN (7-18) mg/dL Creatinine (0.5-1.0) mg/dL Est Cr Clr Drug Dosing mL/min Estimated GFR (MDRD) (>60) BUN/Creatinine Ratio Glucose (74-106) mg/dL Lactic Acid (0.4-2.0) mmol/L Calcium (8.5-10.1) mg/dL Total Bilirubin (0.2-1.0) mg/dL AST (15-37) U/L ALT (12-78) U/L Alkaline Phosphatase (46-116) U/L Total Protein (6.4-8.2) g/dL Albumin (3.4-5.0) g/dL Globulin (2.3-3.5) g/dL Albumin/Globulin Ratio (1.2-2.2) Lipase (73-393) U/L Urine Color Yellow (YELLOW) Urine Appearance Cloudy A (CLEAR) Urine pH 6.0 (5.0-8.0) Ur Specific [place] >= 1.030 (1.008-1.030) Urine Protein Negative (NEGATIVE) mg/dL Urine Glucose (UA) Negative (NEGATIVE) mg/dL Urine Ketones Negative (NEGATIVE) mg/dL Urine Occult Blood Small H (NEGATIVE) Urine Nitrite Negative (NEGATIVE) Urine Bilirubin Negative (NEGATIVE) Urine Urobilinogen 0.2 (0.2-1.0) EU/dL Ur Leukocyte Esterase Trace H (NEGATIVE) Urine RBC 0-5 (0-5) Urine WBC 30-40 H (0-5) Ur Epithelial Cells Moderate Amorphous Sediment Not seen Urine Bacteria Many Urine Mucus Few Urine Other Urine HCG, Qual Negative Meds: Medications Generic Name Dose Route Start Last Admin Trade Name Freq PRN Reason Stop Dose Admin Sodium Chloride 1,000 mls @ 500 mls/hr 09/13/20 18:29 09/13/20 18:46 Normal Saline IV 09/13/20 20:28 500 mls/hr .BOLUS STA Administration Sodium Chloride 70 mls @ 3 mls/sec 09/13/20 18:45 Normal Saline IV ASDIRECTED VALERY Iopamidol 75 ml 09/13/20 18:45 09/13/20 19:42 Iopamidol 612 Mg/Ml 100 Ml Bottle IV 75 ml . DIRECTED VALERY Administration Sodium Chloride 10 ml 09/13/20 18:29 Sodium Chloride 0.9% 10 Ml Syringe FLUSH ASDIRECTED PRN Keep Vein Open Discontinued Medications Generic Name Dose Route Start Last Admin Trade Name Freq PRN Reason Stop Dose Admin Hydromorphone HCl 0.5 mg 09/13/20 18:30 09/13/20 18:51 Hydromorphone 0.5 Mg/0.5 Ml Syringe IVPUSH 09/13/20 18:31 0.5 mg ONETIME ONE Administration Ondansetron HCl 4 mg 09/13/20 18:30 09/13/20 18:47 Ondansetron 4 Mg/2 Ml Sdv IVPUSH 09/13/20 18:31 4 mg ONETIME ONE Administration Sodium Chloride 10 ml 09/13/20 18:35 09/13/20 19:43 Sodium Chloride 0.9% 10 Ml Syringe FLUSH 09/13/20 18:36 10 ml ONETIME ONE Administration Departure - Departure Time of Disposition: 20:20 Disposition: Home, Self-Care 01 Condition: Fair Clinical Impression: Functional constipation Urinary tract infection Qualifiers: Urinary tract infection type: acute cystitis Hematuria presence: without hematuria Qualified Code(s): N30.00 - Acute cystitis without hematuria - Discharge Information Instructions: Constipation, Adult, Urinary Tract Infection, Adult Referrals: PCP,None [Primary Care Provider] - Forms: ED Department Discharge Additional Instructions: Take full course of antibiotics, try the MiraLAX as needed for constipation, please followup with your primary care provider in 3-5 days if not better, please call return to the emergency department with worsening of symptoms. Sepsis Event Note (ED) - Evaluation Sepsis Screening Result: No Definite Risk - Focused Exam Vital Signs: Vital Signs Temp Pulse Resp BP Pulse Ox 09/13/20 19:03 85 12 104/62 100 09/13/20 18:12 99 F 104 H 12 114/76 100 - My Orders Last 24 Hours: My Active Orders 09/13/20 18:29 Peripheral IV Care [RC] . DIRECTED Sodium Chloride 0.9% [Normal Saline] 1,000 ml IV .BOLUS Sodium Chloride 0.9% [Saline Flush] 10 ml FLUSH ASDIRECTED PRN Peripheral IV Insertion Adult [OM.PC] Urgent 09/13/20 18:45 Iopamidol [Isovue-300 (61%)] 75 ml IV . DIRECTED Sodium Chloride 0.9% [Normal Saline] 70 ml IV ASDIRECTED 09/13/20 20:12 CULTURE URINE [RM] Urgent - Assessment/Plan Last 24 Hours: My Active Orders 09/13/20 18:29 Peripheral IV Care [RC] . DIRECTED Sodium Chloride 0.9% [Normal Saline] 1,000 ml IV .BOLUS Sodium Chloride 0.9% [Saline Flush] 10 ml FLUSH ASDIRECTED PRN Peripheral IV Insertion Adult [OM.PC] Urgent 09/13/20 18:45 Iopamidol [Isovue-300 (61%)] 75 ml IV . DIRECTED Sodium Chloride 0.9% [Normal Saline] 70 ml IV ASDIRECTED 09/13/20 20:12 CULTURE URINE [RM] Urgent Plan: Assessment Acuity = acute Site and laterality = urinary tract infection with functional constipation complicated patient with history of gastric bypass Etiology = probable bacterial cause for the urinary tract infection unknown for constipation Manifestations = abdominal pain Location of injury = Home Lab values = CBC, CMP unremarkable, lactic acid within normal limits urinalysis does reveal reveal 30-40 WBCs consistent with pyuria cultures pending, CT scan of the abdomen reveals no acute process Plan Elected to treat empirically with Macrobid 100 mg p.o. twice daily x5 days recommend colonoscopy prep with MiraLAX for functional constipation follow-up primary care 3 to 5 days if not better This note was dictated using [employer] voice recognition software please call with any questions on syntax or grammar.
[2020-09-13] MEDS ORDERED: Iopamidol 612 MG/ML 100 ML Bottle IV SCH (18:45)
[2020-09-13] MEDS: Sodium Chloride 0.9% 10 ML Syringe FLUSH ONE ×2 (18:46→19:43)
[2020-09-13 19:04] VITALS: PULSE 85
--- NOTE | 2020-09-13 20:11 | CRLCT ---
Indication: Right upper quadrant pain Technique: A CT volumetric acquisition was performed of the abdomen and pelvis during the intravenous infusion of 75 cc Isovue 270 Comparison: CT abdomen pelvis dated 01/04/2019 Findings: The lung bases are clear. The liver and spleen demonstrate normal size and uniform enhancement. There is no evidence of inflammation within the pancreas. There are no inflammatory changes noted about the gastric bypass surgical site. The gallbladder has been resected. The bile ducts are normal in size. There are few tiny cortical cysts within the kidneys. There is no evidence of pyelonephritis or obstruction. There is no evidence of retroperitoneal lymphadenopathy. The small intestine and colon appear normal. The uterus and ovaries are normal size. Urinary bladder appears normal. Impression: No acute process noted within the abdomen and pelvis. Dictated by Raj Solano MD @ 09/13/2020 8:09:52 PM Please note that all CT scans at this facility use dose modulation, iterative reconstruction, and/or weight-based dosing when appropriate to reduce radiation dose to as low as reasonably achievable. Dictated by: Raj Solano MD @ 09/13/2020 20:10:02 (Electronically Signed)
[2020-09-13 21:00] VITALS: BP 95/65
== END 2020-09-13 21:18 | disposition home or self-care (01) ==
LOC: JP.ED 17:59
DX: N30.00 Acute cystitis without hematuria (principal); K59.04 Chronic idiopathic constipation; J45.909 Unspecified asthma, uncomplicated; K21.9 Gastro-esophageal reflux disease without esophagitis; Z88.0 Allergy status to penicillin; Z88.8 Allergy status to other drugs, medicaments and biological substances; Z88.1 Allergy status to other antibiotic agents; Z88.4 Allergy status to anesthetic agent; Z79.899 Other long term (current) drug therapy; Z72.0 Tobacco use
CPT/HCPCS: 36415; 74177; 80053; 81001; 81025; 83605; 83690; 85025; 87086; 96374; 96375; 99283; 99284; J1170; J2405; J7030; Q9967

== ENCOUNTER 2020-10-05 15:10 | Emergency (ER) | payer MEDICAID ==
[2020-10-05 15:28] VITALS: BP 107/66; PULSE 97
--- NOTE | 2020-10-05 16:11 | EDM.PDOC ---
ED HPI GENERAL MEDICAL PROBLEM - General Chief Complaint: General Stated Complaint: CHEST PAIN DOWN TO ARM Time Seen by Provider: 10/05/20 15:45 Source of Information: Reports: Patient History Limitations: Reports: No Limitations - History of Present Illness INITIAL COMMENTS - FREE TEXT/NARRATIVE: 30-year-old female, actually restricted to another hospital for emergency care presents with some brief left-sided arm pain, migrating abdominal discomfort, chest tightness that apparently occurred yesterday but she said she called her primary provider today and he told her to come to the emergency room. She does not look like she is having any symptoms currently. Onset: Unknown/Unsure Location: Reports: Upper Extremity, Left Associated Symptoms: Reports: Other (Intermittent chest tightness) abdominal Pain Score (Numeric/FACES): 9 - Related Data Allergies Allergy/AdvReac Type Severity Reaction Status Date / Time amoxicillin [Amoxicillin] Allergy Unknown Rash Verified 10/05/20 15:38 Penicillins Allergy Unknown Rash Verified 10/05/20 15:38 Aminoglycosides Allergy Cannot Verified 10/05/20 15:38 Remember droperidol Allergy Anxiety Verified 10/05/20 15:38 levofloxacin Allergy Rash Verified 10/05/20 15:38 metoclopramide [From Reglan] Allergy Cannot Verified 10/05/20 15:38 Remember prochlorperazine edisylate AdvReac Intermediate Tachycardia Verified 10/05/20 15:38 [From Compazine] prochlorperazine maleate AdvReac Intermediate Tachycardia Verified 10/05/20 15:38 [From Compazine] cephalexin monohydrate AdvReac Unknown Vomiting Verified 10/05/20 15:38 [From Keflex] erythromycin base AdvReac Unknown Abdominal Verified 10/05/20 15:38 [Erythromycin Base] Pain lidocaine AdvReac Nausea and Verified 10/05/20 15:38 Vomiting Home Meds: Home Meds ondansetron HCL [Ondansetron] 4 mg PO Q8HR PRN 02/20/13 [History] Albuterol Sulfate [Proair Hfa] 2 puff IH Q4H PRN 04/16/13 [History] Calcium Carbonate [Tums] 500 mg PO DAILY 02/02/17 [History] QUEtiapine [SEROquel] 200 mg PO BEDTIME 02/02/17 [History] Acetaminophen [Tylenol] 650 mg PO Q6H PRN 04/06/17 [History] Cholecalciferol (Vitamin D3) [Vitamin D] 5,000 unit PO DAILY 07/06/17 [History] PARoxetine HCL [Paroxetine HCl] 10 mg PO BEDTIME 12/20/17 [History] Methylcellulose (with Sugar) [Citrucel] 1 tbsp PO BID 01/17/19 [History] ClonazePAM [KlonoPIN] 0.5 mg PO TID 09/13/20 [History] Zolpidem Tartrate [Ambien] 10 mg PO BEDTIME 09/13/20 [History] Past Medical History HEENT History: Reports: Allergic Rhinitis, Impaired Vision, Other (See Below) Other HEENT History: enlarged optic nerve Cardiovascular History: Reports: Arrhythmia, Other (See Below) Other Cardiovascular History: tachycardia; PVC's Respiratory History: Reports: Asthma, Sleep Apnea Gastrointestinal History: Reports: Bowel Obstruction, Colon Polyp, GERD, Hemorrhoids, Hiatal Hernia, Pancreatitis, Other (See Below) Other Gastrointestinal History: ulcers, gastroparesis, bezoars, esophageal strictures Genitourinary History: Reports: Renal Calculus, Retention, Urinary, Other (See Below) Other Genitourinary History: PCOS [employer] History: Reports: Polycystic Ovaries, Musculoskeletal History: Reports: Fracture, Fibromyalgia Neurological History: Reports: Concussion Psychiatric History: Reports: Anxiety, Depression, Psych Hospitalization(s), PTSD, Suicide Attempt, Other (See Below) Other Psychiatric History: mooddisorder unclasified Endocrine/Metabolic History: Reports: Vitamin D Deficiency, Other (See Below) Other Endocrine/Metabolic History: hypoglycemia Hematologic History: Reports: B12 Deficiency, Iron Deficiency Dermatologic History: Reports: Other (See Below) Other Dermatologic History: skin rashes and acne; abdnormal moles - Infectious Disease History Infectious Disease History: Reports: Chicken Pox, Influenza, Mononucleosis - Past Surgical History Head Surgeries/Procedures: Reports: None HEENT Surgical History: Reports: None, Oral Surgery Cardiovascular Surgical History: Reports: Other (See Below) Other Cardiovascular Surgeries/Procedures: ECHO Respiratory Surgical History: Reports: None GI Surgical History: Reports: Bariatric Procedure, Cholecystectomy, Colonoscopy, EGD, Esophageal Dilatation, Hernia Repair/Other, Felix Fundoplication, Polypectomy, Small Bowel, Other (See Below) Other GI Surgeries/Procedures: fistula, perforation Female Surgical History: Reports: None, Cystectomy, Cystoscopy Endocrine Surgical History: Reports: None Neurological Surgical History: Reports: None Musculoskeletal Surgical History: Reports: None Dermatological Surgical History: Reports: Skin Biopsy Social & Family History - Family History Family Medical History: No Pertinent Family History Cardiac: Reports: CAD Endocrine/Metabolic: Reports: Diabetes, type II - Tobacco Use Tobacco Use Status *Q: Current Every Day Tobacco User Years of Tobacco use: 10 Packs/Tins Daily: 0.2 - Caffeine Use Caffeine Use: Reports: Coffee, Soda - Recreational Drug Use Recreational Drug Use: No - Living Situation & Occupation Living situation: Reports: Single, with Family (lives with Mom in [place], [place]. no children.) ED ROS GENERAL - Review of Systems Review Of Systems: See Below Constitutional: Denies: Fever, Chills Respiratory: Reports: Other (Chest pressure, tightness) Musculoskeletal: Reports: Other (Some pain radiating into the left arm mostly yesterday) Skin: Reports: No Symptoms Neurological: Denies: Headache Psychiatric: Reports: Anxiety ED EXAM, GENERAL - Physical Exam Exam: See Below Exam Limited By: No Limitations General Appearance: Alert, No Apparent Distress Eye Exam: Bilateral Eye: Normal Inspection Head: Atraumatic Respiratory/Chest: No Respiratory Distress, Lungs Clear Cardiovascular: Regular Rate, Rhythm GI/Abdominal: Soft, Tender (Does react with some discomfort to palpation generally but no focal rebound or guarding) Neurological: Alert, Oriented Psychiatric: Normal Affect, Normal Mood Skin Exam: Warm, Dry Course - Vital Signs Last Recorded V/S: Last Vital Signs Temp 97.0 F 10/05/20 15:37 Pulse 97 10/05/20 15:37 Resp 16 10/05/20 15:37 BP 107/66 10/05/20 15:37 Pulse Ox 100 10/05/20 15:37 - Re-Assessments/Exams Free Text/Narrative Re-Assessment/Exam: 10/06/20 07:59 Vitals are completely normal, exam is nonspecific. A bedside [id number] ultrasound was done which showed no abnormalities in the abdomen, normal slide sign of the lungs and generally normal cardiac activity. She was reassured, no further work-up necessary at this time as she is restricted to another hospital. Departure - Departure Time of Disposition: 16:25 Disposition: Home, Self-Care 01 Clinical Impression: Atypical chest pain Abdominal pain Qualifiers: Abdominal location: generalized Qualified Code(s): R10.84 - Generalized abdominal pain - Discharge Information Instructions: Nonspecific Chest Pain, Adult, [id number] Referrals: Chetan Fitch MD [Primary Care Provider] - Forms: ED Department Discharge Care Plan Goals: Continue any current medications, increase activity as tolerated and stay hydrated. Consider rechecking in 2 to 3 days if not improving satisfactorily. Sepsis Event Note (ED) - Evaluation Sepsis Screening Result: No Definite Risk
== END 2020-10-05 16:25 | disposition home or self-care (01) ==
LOC: JP.ED 15:10
DX: R10.84 Generalized abdominal pain (principal); R07.89 Other chest pain; J45.909 Unspecified asthma, uncomplicated; Z88.0 Allergy status to penicillin; Z88.8 Allergy status to other drugs, medicaments and biological substances; Z88.1 Allergy status to other antibiotic agents; Z88.4 Allergy status to anesthetic agent; Z72.0 Tobacco use
CPT/HCPCS: 99285-25

== ENCOUNTER 2020-10-14 17:35 | Emergency (ER) | payer MEDICAID ==
[2020-10-14] MEDS ORDERED: Ondansetron 4 MG/2 ML SDV IVPUSH ONE (18:37)
[2020-10-14] MEDS ORDERED: Ketorolac 30 MG/ML SDV IVPUSH ONE (18:37)
[2020-10-14] MEDS ORDERED: Sodium Chloride 0.9% 10 ML Syringe FLUSH PRN (18:37)
--- NOTE | 2020-10-14 18:42 | EDM.PDOC ---
ED HPI GENERAL MEDICAL PROBLEM - General Chief Complaint: Abdominal Pain Stated Complaint: ABD PAIN Time Seen by Provider: 10/14/20 18:30 Source of Information: Reports: Patient, Old Records History Limitations: Reports: No Limitations - History of Present Illness INITIAL COMMENTS - FREE TEXT/NARRATIVE: 30-year-old female presenting to the ED for acute onset of periumbilical abd ominal pain starting around noon today. Patient reports having fever and chills, diminished appetite, but denies any nausea, vomiting, or diarrhea. In fact she is complaining of some constipation today. Patient has a significant past medical history for a complicated abdominal course following a gastric bypass, cholecystectomy, and exploratory laparoscopy. She is a high utilizer of the emergency room and therefore has been medically restricted to [facility] in [place], [place]. Middle Abdominal Pain Score (Numeric/FACES): 7 - Related Data Allergies Allergy/AdvReac Type Severity Reaction Status Date / Time amoxicillin [Amoxicillin] Allergy Unknown Rash Verified 10/14/20 18:14 Penicillins Allergy Unknown Rash Verified 10/14/20 18:14 Aminoglycosides Allergy Cannot Verified 10/14/20 18:14 Remember droperidol Allergy Anxiety Verified 10/14/20 18:14 levofloxacin Allergy Rash Verified 10/14/20 18:14 metoclopramide [From Reglan] Allergy Cannot Verified 10/14/20 18:14 Remember prochlorperazine edisylate AdvReac Intermediate Tachycardia Verified 10/14/20 18:14 [From Compazine] prochlorperazine maleate AdvReac Intermediate Tachycardia Verified 10/14/20 18:14 [From Compazine] cephalexin monohydrate AdvReac Unknown Vomiting Verified 10/14/20 18:14 [From Keflex] erythromycin base AdvReac Unknown Abdominal Verified 10/14/20 18:14 [Erythromycin Base] Pain lidocaine AdvReac Nausea and Verified 10/14/20 18:14 Vomiting Home Meds: Home Meds ondansetron HCL [Ondansetron] 4 mg PO Q8HR PRN 02/20/13 [History] Albuterol Sulfate [Proair Hfa] 2 puff IH Q4H PRN 04/16/13 [History] Calcium Carbonate [Tums] 500 mg PO DAILY 02/02/17 [History] QUEtiapine [SEROquel] 200 mg PO BEDTIME 02/02/17 [History] Acetaminophen [Tylenol] 650 mg PO Q6H PRN 04/06/17 [History] Cholecalciferol (Vitamin D3) [Vitamin D] 5,000 unit PO DAILY 07/06/17 [History] PARoxetine HCL [Paroxetine HCl] 10 mg PO BEDTIME 12/20/17 [History] Methylcellulose (with Sugar) [Citrucel] 1 tbsp PO BID 01/17/19 [History] ClonazePAM [KlonoPIN] 0.5 mg PO TID 09/13/20 [History] Zolpidem Tartrate [Ambien] 10 mg PO BEDTIME 09/13/20 [History] Past Medical History HEENT History: Reports: Allergic Rhinitis, Impaired Vision, Other (See Below) Other HEENT History: enlarged optic nerve Cardiovascular History: Reports: Arrhythmia, Other (See Below) Other Cardiovascular History: tachycardia; PVC's Respiratory History: Reports: Asthma, Sleep Apnea Gastrointestinal History: Reports: Bowel Obstruction, Colon Polyp, GERD, Hemorrhoids, Hiatal Hernia, Pancreatitis, Other (See Below) Other Gastrointestinal History: ulcers, gastroparesis, bezoars, esophageal strictures Genitourinary History: Reports: Renal Calculus, Retention, Urinary, Other (See Below) Other Genitourinary History: PCOS [employer] History: Reports: Polycystic Ovaries, Musculoskeletal History: Reports: Fracture, Fibromyalgia Neurological History: Reports: Concussion Psychiatric History: Reports: Anxiety, Depression, Psych Hospitalization(s), PTSD, Suicide Attempt, Other (See Below) Other Psychiatric History: mooddisorder unclasified Endocrine/Metabolic History: Reports: Vitamin D Deficiency, Other (See Below) Other Endocrine/Metabolic History: hypoglycemia Hematologic History: Reports: B12 Deficiency, Iron Deficiency Dermatologic History: Reports: Other (See Below) Other Dermatologic History: skin rashes and acne; abdnormal moles - Infectious Disease History Infectious Disease History: Reports: Chicken Pox, Influenza, Mononucleosis - Past Surgical History HEENT Surgical History: Reports: None, Oral Surgery Cardiovascular Surgical History: Reports: Other (See Below) Other Cardiovascular Surgeries/Procedures: ECHO Respiratory Surgical History: Reports: None GI Surgical History: Reports: Bariatric Procedure, Cholecystectomy, Colonoscopy, EGD, Esophageal Dilatation, Hernia Repair/Other, Felix Fundoplication, Polypectomy, Small Bowel, Other (See Below) Other GI Surgeries/Procedures: fistula, perforation Female Surgical History: Reports: Cystectomy, Cystoscopy Dermatological Surgical History: Reports: Skin Biopsy Social & Family History - Family History Family Medical History: No Pertinent Family History Cardiac: Reports: CAD Endocrine/Metabolic: Reports: Diabetes, type II - Tobacco Use Tobacco Use Status *Q: Light Tobacco User Years of Tobacco use: 10 Packs/Tins Daily: 0.3 - Caffeine Use Caffeine Use: Reports: Coffee, Soda - Recreational Drug Use Recreational Drug Use: No - Living Situation & Occupation Living situation: Reports: Single, with Family (lives with Mom in [place], [place]. no children.) ED ROS GENERAL - Review of Systems Review Of Systems: See Below Constitutional: Reports: Fever (Patient reports 100.5 F fever at home. She is afebrile here at 36.1 C), Chills, Decreased Appetite HEENT: Reports: No Symptoms Respiratory: Reports: No Symptoms Cardiovascular: Reports: No Symptoms Endocrine: Reports: No Symptoms GI/Abdominal: Reports: Abdominal Pain (Periumbilical abdominal pain), Constipation, Decreased Appetite, Nausea : Reports: No Symptoms Musculoskeletal: Reports: No Symptoms Skin: Reports: No Symptoms Neurological: Reports: No Symptoms Psychiatric: Reports: No Symptoms Hematologic/Lymphatic: Reports: No Symptoms Immunologic: Reports: No Symptoms ED EXAM, GI/ABD - Physical Exam Exam: See Below Exam Limited By: No Limitations General Appearance: Alert, No Apparent Distress Eyes: Bilateral: EOMI Nose: Normal Inspection Throat/Mouth: Normal Inspection, Normal Oropharynx, Normal Voice, No Airway Compromise Head: Atraumatic, Normocephalic Neck: Normal Inspection, Supple Respiratory/Chest: No Respiratory Distress, Lungs Clear, Normal Breath Sounds Cardiovascular: Normal Peripheral Pulses, Regular Rate, Rhythm, No Murmur. No: Bradycardia, Tachycardia GI/Abdominal Exam: Normal Bowel Sounds, Soft, No Distention, Rebound (Patient reports tenderness worsens with the release of the abdomen), Tender (Tenderness in the area around the umbilicus). No: Guarding, Rigid Back Exam: Normal Inspection, Full Range of Motion Extremities: Normal Inspection, Normal Range of Motion Neurological: Alert, Oriented, Normal Cognition, No Motor/Sensory Deficits Psychiatric: Normal Affect, Normal Mood Skin Exam: Warm, Dry, Intact, Normal Color Lymphatic: No Adenopathy Course - Vital Signs Last Recorded V/S: Last Vital Signs Temp 36.1 C 10/14/20 18:10 Pulse 75 10/14/20 20:48 Resp 16 10/14/20 18:10 BP 108/70 10/14/20 20:48 Pulse Ox 99 10/14/20 20:48 - Orders/Labs/Meds Orders: Active Orders 24 hr Category Date Time Status Iopamidol [Isovue-300 (61%)] Med 10/14/20 19:00 Active 75 ml IV . DIRECTED Sodium Chloride 0.9% [Normal Saline] 1,000 ml Med 10/14/20 18:45 Active IV ASDIRECTED Sodium Chloride 0.9% [Normal Saline] 80 ml Med 10/14/20 19:00 Active IV ASDIRECTED Sodium Chloride 0.9% [Saline Flush] Med 10/14/20 18:37 Active 10 ml FLUSH ASDIRECTED PRN Saline Lock Insert [OM.PC] Routine Oth 10/14/20 18:37 Ordered Medication Orders Sodium Chloride (Normal Saline) 1,000 mls @ 999 mls/hr IV ASDIRECTED VALERY Last Admin: 10/14/20 18:57 Dose: 999 mls/hr Documented by: MIMI Sodium Chloride (Normal Saline) 80 mls @ 3 mls/sec IV ASDIRECTED VALERY Last Admin: 10/14/20 19:56 Dose: 3 mls/sec Documented by: BO Iopamidol (Iopamidol 612 Mg/Ml 100 Ml Bottle) 75 ml IV . DIRECTED VALERY Last Admin: 10/14/20 19:56 Dose: 75 ml Documented by: BO Sodium Chloride (Sodium Chloride 0.9% 10 Ml Syringe) 10 ml FLUSH ASDIRECTED PRN PRN Reason: Keep Vein Open Last Admin: 10/14/20 19:27 Dose: 10 ml Documented by: SY Labs: Laboratory Tests 10/14/20 10/14/20 10/14/20 Range/Units 18:55 18:55 18:58 WBC 6.3 (4.5-11.0) K/uL RBC 4.05 (3.30-5.50) M/uL Hgb 12.9 (12.0-15.0) g/dL Hct 38.3 (36.0-48.0) % MCV 95 (80-98) fL MCH 32 H (27-31) pg MCHC 34 (32-36) % Plt Count 259 (150-400) K/uL Neut % (Auto) 58.7 (36-66) % Lymph % (Auto) 27.2 (24-44) % [place] % (Auto) 12.3 H (2-6) % Eos % (Auto) 1.3 L (2-4) % Baso % (Auto) 0.5 (0-1) % Sodium 141 (140-148) mmol/L Potassium 4.4 (3.6-5.2) mmol/L Chloride 105 (100-108) mmol/L Carbon Dioxide 24 (21-32) mmol/L Anion Gap 11.8 (5.0-14.0) mmol/L BUN 15 (7-18) mg/dL Creatinine 0.5 L (0.6-1.0) mg/dL Est Cr Clr Drug Dosing 131.30 mL/min Estimated GFR (MDRD) > 60 (>60) Glucose 86 (74-106) mg/dL Calcium 8.9 (8.5-10.1) mg/dL Total Bilirubin 0.3 D (0.2-1.0) mg/dL AST 15 (15-37) U/L ALT 41 (12-78) U/L Alkaline Phosphatase 192 H (46-116) U/L C-Reactive Protein < 0.05 (0.0-0.3) mg/dL Total Protein 7.2 (6.4-8.2) g/dL Albumin 3.9 (3.4-5.0) g/dL Globulin 3.3 (2.3-3.5) g/dL Albumin/Globulin Ratio 1.2 (1.2-2.2) Lipase 157 (73-393) U/L Urine Color Yellow (YELLOW) Urine Appearance Slightly cloudy A (CLEAR) Urine pH 7.5 (5.0-8.0) Ur Specific [place] 1.025 (1.008-1.030) Urine Protein Negative (NEGATIVE) mg/dL Urine Glucose (UA) Negative (NEGATIVE) mg/dL Urine Ketones Negative (NEGATIVE) mg/dL Urine Occult Blood Trace-intact H (NEGATIVE) Urine Nitrite Negative (NEGATIVE) Urine Bilirubin Negative (NEGATIVE) Urine Urobilinogen 1.0 (0.2-1.0) EU/dL Ur Leukocyte Esterase Negative (NEGATIVE) Urine RBC 10-20 H (0-5) Urine WBC 0-5 (0-5) Ur Epithelial Cells Many Amorphous Sediment Not seen Urine Bacteria Many Urine Mucus Moderate Urine HCG, Qual 10/14/20 Range/Units 18:58 WBC (4.5-11.0) K/uL RBC (3.30-5.50) M/uL Hgb (12.0-15.0) g/dL Hct (36.0-48.0) % MCV (80-98) fL MCH (27-31) pg MCHC (32-36) % Plt Count (150-400) K/uL Neut % (Auto) (36-66) % Lymph % (Auto) (24-44) % [place] % (Auto) (2-6) % Eos % (Auto) (2-4) % Baso % (Auto) (0-1) % Sodium (140-148) mmol/L Potassium (3.6-5.2) mmol/L Chloride (100-108) mmol/L Carbon Dioxide (21-32) mmol/L Anion Gap (5.0-14.0) mmol/L BUN (7-18) mg/dL Creatinine (0.6-1.0) mg/dL Est Cr Clr Drug Dosing mL/min Estimated GFR (MDRD) (>60) Glucose (74-106) mg/dL Calcium (8.5-10.1) mg/dL Total Bilirubin (0.2-1.0) mg/dL AST (15-37) U/L ALT (12-78) U/L Alkaline Phosphatase (46-116) U/L C-Reactive Protein (0.0-0.3) mg/dL Total Protein (6.4-8.2) g/dL Albumin (3.4-5.0) g/dL Globulin (2.3-3.5) g/dL Albumin/Globulin Ratio (1.2-2.2) Lipase (73-393) U/L Urine Color (YELLOW) Urine Appearance (CLEAR) Urine pH (5.0-8.0) Ur Specific [place] (1.008-1.030) Urine Protein (NEGATIVE) mg/dL Urine Glucose (UA) (NEGATIVE) mg/dL Urine Ketones (NEGATIVE) mg/dL Urine Occult Blood (NEGATIVE) Urine Nitrite (NEGATIVE) Urine Bilirubin (NEGATIVE) Urine Urobilinogen (0.2-1.0) EU/dL Ur Leukocyte Esterase (NEGATIVE) Urine RBC (0-5) Urine WBC (0-5) Ur Epithelial Cells Amorphous Sediment Urine Bacteria Urine Mucus Urine HCG, Qual Negative Meds: Medications Generic Name Dose Route Start Last Admin Trade Name Freq PRN Reason Stop Dose Admin Sodium Chloride 1,000 mls @ 999 mls/hr 10/14/20 18:45 10/14/20 18:57 Normal Saline IV 999 mls/hr ASDIRECTED VALERY Administration Sodium Chloride 80 mls @ 3 mls/sec 10/14/20 19:00 10/14/20 19:56 Normal Saline IV 3 mls/sec ASDIRECTED VALERY Administration Iopamidol 75 ml 10/14/20 19:00 10/14/20 19:56 Iopamidol 612 Mg/Ml 100 Ml Bottle IV 75 ml . DIRECTED VALERY Administration Sodium Chloride 10 ml 10/14/20 18:37 10/14/20 19:27 Sodium Chloride 0.9% 10 Ml Syringe FLUSH 10 ml ASDIRECTED PRN Administration Keep Vein Open Discontinued Medications Generic Name Dose Route Start Last Admin Trade Name Freq PRN Reason Stop Dose Admin Diphenhydramine HCl 25 mg 10/14/20 19:16 10/14/20 19:26 Diphenhydramine 50 Mg/Ml Sdv IVPUSH 10/14/20 19:17 25 mg ONETIME ONE Administration Ketorolac Tromethamine 30 mg 10/14/20 18:37 10/14/20 19:03 Ketorolac 30 Mg/Ml Sdv IVPUSH 10/14/20 18:38 30 mg ONETIME ONE Administration Ondansetron HCl 4 mg 10/14/20 18:37 10/14/20 19:04 Ondansetron 4 Mg/2 Ml Sdv IVPUSH 10/14/20 18:38 4 mg ONETIME ONE Administration - Re-Assessments/Exams Free Text/Narrative Re-Assessment/Exam: 10/14/20 19:36 reviewed the patient's labs showing a normal CBC, comprehensive metabolic profile, CRP, lipase, and urinalysis except for occult blood and 10-20 WBCs. No further is no evidence for an acute infection. We are awaiting her CT of the abdomen and pelvis with contrast. The patient did have a localized reaction to receiving the Toradol and Zofran IV with redness extending down her arm from the IV site. She was given diphenhydramine 25 mg IV for this. 10/14/20 21:08 CT of the abdomen and pelvis shows a fair amount of stool in the distal colon consistent with constipation and a small hiatal hernia. There was other ba no abnormalities seen. Patient may take a laxative of choice for her constipation but otherwise is suitable for discharge home in satisfactory condition. Departure - Departure Time of Disposition: 21:09 Disposition: Home, Self-Care 01 Clinical Impression: Periumbilical abdominal pain, Slow transit constipation - Discharge Information Instructions: Constipation, Adult, Abdominal Pain, Adult, [id number] Referrals: Chetan Fitch MD [Primary Care Provider] - Forms: ED Department Discharge Care Plan Goals: I recommend for your constipation that you take a laxative of choice and make sure to drink plenty of fluids. There was no other abnormalities found in your work-up today to account for the periumbilical pain which is likely referred from your descending colon which is containing large amount of stool. You may benefit from a fleets enema which can also be done at home. Sepsis Event Note (ED) - Evaluation Sepsis Screening Result: Possible Sepsis Risk - Focused Exam Vital Signs: Vital Signs Temp Pulse Resp BP Pulse Ox 10/14/20 20:48 75 108/70 99 10/14/20 18:30 95 111/77 10/14/20 18:10 36.1 C 98 16 120/73 100 10/14/20 17:46 36.1 C 98 16 120/73 100 - Problem List & Annotations (1) Periumbilical abdominal pain SNOMED Code(s): 491839323 Code(s): R10.33 - PERIUMBILICAL PAIN Status: Acute Priority: High Current Visit: Yes (2) Slow transit constipation SNOMED Code(s): 64270175 Code(s): K59.01 - SLOW TRANSIT CONSTIPATION Status: Acute Priority: High Current Visit: Yes - Problem List Review Problem List Initiated/Reviewed/Updated: Yes - My Orders Last 24 Hours: My Active Orders 10/14/20 18:37 Sodium Chloride 0.9% [Saline Flush] 10 ml FLUSH ASDIRECTED PRN Saline Lock Insert [OM.PC] Routine 10/14/20 18:45 Sodium Chloride 0.9% [Normal Saline] 1,000 ml IV ASDIRECTED 10/14/20 19:00 Iopamidol [Isovue-300 (61%)] 75 ml IV . DIRECTED Sodium Chloride 0.9% [Normal Saline] 80 ml IV ASDIRECTED - Assessment/Plan Last 24 Hours: My Active Orders 10/14/20 18:37 Sodium Chloride 0.9% [Saline Flush] 10 ml FLUSH ASDIRECTED PRN Saline Lock Insert [OM.PC] Routine 10/14/20 18:45 Sodium Chloride 0.9% [Normal Saline] 1,000 ml IV ASDIRECTED 10/14/20 19:00 Iopamidol [Isovue-300 (61%)] 75 ml IV . DIRECTED Sodium Chloride 0.9% [Normal Saline] 80 ml IV ASDIRECTED
[2020-10-14] MEDS ORDERED: Sodium Chloride 0.9% 1,000 ML IV SCH (18:45)
[2020-10-14] MEDS ORDERED: Iopamidol 612 MG/ML 100 ML Bottle IV SCH (19:00)
[2020-10-14] MEDS ORDERED: Sodium Chloride 0.9% 80 ML IV SCH (19:00)
[2020-10-14] MEDS ORDERED: diphenhydrAMINE 50 MG/ML SDV IVPUSH ONE (19:16)
--- NOTE | 2020-10-14 20:36 | CRLCT ---
Indication: Periumbilical pain, history of Lorna-en-Y gastric bypass Technique: Contrast enhanced axial CT imaging through the abdomen and pelvis. 75 mL Isovue-300 contrast agent was administered intravenously. Sagittal and coronal reconstructions are provided. Comparison: CT abdomen and pelvis with contrast 09/13/2020 Findings: No abnormalities are demonstrated relating to the liver, spleen, pancreas, adrenal glands, and kidneys. Cholecystectomy clips are noted. The portal vein is patent. The abdominal aorta is normal in caliber. There is no abdominal lymphadenopathy. Lorna-en-Y gastric bypass changes are noted. There is a small hiatal hernia containing the gastric pouch, similar to prior. There is no small bowel wall thickening or abnormal distention. The appendix is noninflamed. There is no colonic wall thickening or mesenteric edema. Prominent fecal material in the distal colon suggests constipation. The urinary bladder, uterus, and adnexa are unremarkable. There is no pelvic lymphadenopathy or free fluid. The osseous structures are unremarkable. The included lung bases are clear. Impression: 1. Prominent fecal material in the distal colon suggests constipation. Normal appendix. Otherwise no acute abnormality. 2. Stable small hiatal hernia. Please note that all CT scans at this facility use dose modulation, iterative reconstruction, and/or weight-based dosing when appropriate to reduce radiation dose to as low as reasonably achievable. Dictated by Jose J Parra MD @ 10/14/2020 8:35:[address] Jose J Parra @ Oct 14 2020 8:35PM
[2020-10-14 20:49] VITALS: BP 108/70; PULSE 75
== END 2020-10-14 21:24 | disposition home or self-care (01) ==
LOC: JP.ED 17:35
DX: K59.01 Slow transit constipation (principal); Z72.0 Tobacco use; Z88.0 Allergy status to penicillin; Z88.1 Allergy status to other antibiotic agents; Z88.5 Allergy status to narcotic agent; Z88.6 Allergy status to analgesic agent; Z88.4 Allergy status to anesthetic agent
CPT/HCPCS: 36415; 74177; 80053; 81001; 81025; 83690; 85025; 86140; 96374; 96375; 99283; 99284; J1200; J1885; J2405; J7030; Q9967

== ENCOUNTER 2020-11-19 12:21 | Emergency (ER) | payer MEDICAID ==
[2020-11-19 12:56] VITALS: BP 129/77; PULSE 76
--- NOTE | 2020-11-19 13:14 | EDM.PDOC ---
ED HPI GENERAL MEDICAL PROBLEM - General Chief Complaint: Abdominal Pain Stated Complaint: RIGHT SHOULDER PAIN Time Seen by Provider: 11/19/20 13:00 Source of Information: Reports: Patient History Limitations: Reports: No Limitations - History of Present Illness INITIAL COMMENTS - FREE TEXT/NARRATIVE: 30-year-old female who is a frequent user of emergency services, supposedly r estricted to [facility] but has presented to this emergency room 4 times now in the last month. She was seen for abdominal pain twice, chest pain and shoulder pain once, I saw her 1 month ago and abdominal ultrasound was normal. Since that time she has had 2 large work-ups including CT of the abdomen and pelvis and labs, and she claims she has been "throwing up blood" for the last week. Her regular provider has called her in some prescription medicine for her stomach 2 days ago, she has not picked up the prescription. She was told by the surgical department to come to the emergency room "if it is getting worse". She again looks perfectly stable, good skin color, normal vitals. Onset: Unknown/Unsure (Symptoms for at least a week) Location: Reports: Abdomen - Related Data Allergies Allergy/AdvReac Type Severity Reaction Status Date / Time amoxicillin [Amoxicillin] Allergy Unknown Rash Verified 11/19/20 12:58 Penicillins Allergy Unknown Rash Verified 11/19/20 12:58 Aminoglycosides Allergy Cannot Verified 11/19/20 12:58 Remember droperidol Allergy Anxiety Verified 11/19/20 12:58 levofloxacin Allergy Rash Verified 11/19/20 12:58 metoclopramide [From Reglan] Allergy Cannot Verified 11/19/20 12:58 Remember prochlorperazine edisylate AdvReac Intermediate Tachycardia Verified 11/19/20 12:58 [From Compazine] prochlorperazine maleate AdvReac Intermediate Tachycardia Verified 11/19/20 12:58 [From Compazine] cephalexin monohydrate AdvReac Unknown Vomiting Verified 11/19/20 12:58 [From Keflex] erythromycin base AdvReac Unknown Abdominal Verified 11/19/20 12:58 [Erythromycin Base] Pain lidocaine AdvReac Nausea and Verified 11/19/20 12:58 Vomiting Home Meds: Home Meds ondansetron HCL [Ondansetron] 4 mg PO Q8HR PRN 09/26/13 [History] Albuterol Sulfate [Proair Hfa] 2 puff IH Q4H PRN 04/16/13 [History] Calcium Carbonate [Tums] 500 mg PO DAILY 02/02/17 [History] QUEtiapine [SEROquel] 200 mg PO BEDTIME 02/02/17 [History] Acetaminophen [Tylenol] 650 mg PO Q6H PRN 04/06/17 [History] Methylcellulose (with Sugar) [Citrucel] 1 tbsp PO BID PRN 01/17/19 [History] ClonazePAM [KlonoPIN] 0.5 mg PO TID 09/13/20 [History] Zolpidem Tartrate [Ambien] 10 mg PO BEDTIME 09/13/20 [History] Past Medical History HEENT History: Reports: Allergic Rhinitis, Impaired Vision, Other (See Below) Other HEENT History: enlarged optic nerve Cardiovascular History: Reports: Arrhythmia, Other (See Below) Other Cardiovascular History: tachycardia; PVC's Respiratory History: Reports: Asthma, Sleep Apnea, Other (See Below) Other Respiratory History: hx partially collapsed lung Gastrointestinal History: Reports: Bowel Obstruction, Colon Polyp, GERD, Hemorrhoids, Hiatal Hernia, Pancreatitis, Other (See Below) Other Gastrointestinal History: ulcers, gastroparesis, bezoars, esophageal stri ctures Genitourinary History: Reports: Renal Calculus, Retention, Urinary, Other (See Below) Other Genitourinary History: PCOS DOLLY PUSHER History: Reports: Polycystic Ovaries, Musculoskeletal History: Reports: Fracture, Fibromyalgia Neurological History: Reports: Concussion, Other (See Below) Other Neuro History: "brain bleed" Psychiatric History: Reports: Anxiety, Depression, Psych Hospitalization(s), PTSD, Suicide Attempt, Other (See Below) Other Psychiatric History: mooddisorder unclasified Endocrine/Metabolic History: Reports: Vitamin D Deficiency, Other (See Below) Other Endocrine/Metabolic History: hypoglycemia Hematologic History: Reports: B12 Deficiency, Iron Deficiency Dermatologic History: Reports: Other (See Below) Other Dermatologic History: skin rashes and acne; abdnormal moles - Infectious Disease History Infectious Disease History: Reports: Chicken Pox, Influenza, Mononucleosis - Past Surgical History Head Surgeries/Procedures: Reports: None HEENT Surgical History: Reports: Oral Surgery Cardiovascular Surgical History: Reports: Other (See Below) Other Cardiovascular Surgeries/Procedures: ECHO Respiratory Surgical History: Reports: None GI Surgical History: Reports: Bariatric Procedure, Cholecystectomy, Colonoscopy, EGD, Esophageal Dilatation, Hernia Repair/Other, Felix Fundoplication, Polypectomy, Small Bowel, Other (See Below) Other GI Surgeries/Procedures: fistula, perforation Female Surgical History: Reports: Cystectomy, Cystoscopy Endocrine Surgical History: Reports: None Neurological Surgical History: Reports: None Musculoskeletal Surgical History: Reports: None Dermatological Surgical History: Reports: Skin Biopsy Social & Family History - Family History Family Medical History: No Pertinent Family History Cardiac: Reports: CAD Endocrine/Metabolic: Reports: Diabetes, type II - Tobacco Use Tobacco Use Status *Q: Current Every Day Tobacco User Years of Tobacco use: 10 Packs/Tins Daily: 0.2 - Caffeine Use Caffeine Use: Reports: Coffee, Soda - Recreational Drug Use Recreational Drug Use: No - Living Situation & Occupation Living situation: Reports: Single, with Family (lives with Mom in [place], [place]. no children.) ED ROS GENERAL - Review of Systems Review Of Systems: See Below Constitutional: Denies: Fever, Chills HEENT: Denies: Vision Change Respiratory: Denies: Shortness of Breath Cardiovascular: Reports: Chest Pain GI/Abdominal: Reports: Abdominal Pain, Hematemesis, Nausea, Vomiting Musculoskeletal: Reports: Shoulder Pain (Bilateral) Skin: Denies: Pallor ED EXAM, GI/ABD - Physical Exam Exam: See Below Exam Limited By: No Limitations General Appearance: Alert, No Apparent Distress Eyes: Bilateral: Normal Appearance (Good hydration, no jaundice) Head: Atraumatic Respiratory/Chest: No Respiratory Distress, Lungs Clear Cardiovascular: Regular Rate, Rhythm. No: Tachycardia GI/Abdominal Exam: Normal Bowel Sounds, Soft, Tender (Reacts with tenderness to palpation across the upper abdomen, no focal guarding) Neurological: Alert Psychiatric: Flat Affect Skin Exam: Warm, Dry Course - Vital Signs Last Recorded V/S: Last Vital Signs Temp 97.8 F 11/19/20 13:03 Pulse 76 11/19/20 13:03 Resp 16 11/19/20 13:03 BP 129/77 11/19/20 13:03 Pulse Ox 99 11/19/20 13:03 - Re-Assessments/Exams Free Text/Narrative Re-Assessment/Exam: 11/19/20 13:12 Reviewed the patient's recent work-ups including her abdominal CT scan. Reassured her that her laboratory work looks normal recently and she just needs to start the medication provided by her regular provider before any further work-up is needed. She can return if worsening such as fever, increased pain or increased hematemesis. Departure - Departure Time of Disposition: 13:23 Disposition: Home, Self-Care 01 Clinical Impression: Abdominal pain Qualifiers: Abdominal location: upper abdomen, unspecified Qualified Code(s): R10.10 - Upper abdominal pain, unspecified Hematemesis Qualifiers: Nausea presence: unspecified Qualified Code(s): K92.0 - Hematemesis - Discharge Information Instructions: Abdominal Pain, Adult, [id number] Referrals: Chetan Fitch MD [Primary Care Provider] - Forms: ED Department Discharge Care Plan Goals: Is very important that you fill the prescription that was called in for you several days ago and take as prescribed. Consider rechecking next week if not improving satisfactorily, or return sooner if worsening such as increased pain, fever, or other concerns. Sepsis Event Note (ED) - Evaluation Sepsis Screening Result: No Definite Risk - Focused Exam Vital Signs: Vital Signs Temp Pulse Resp BP Pulse Ox 11/19/20 13:03 97.8 F 76 16 129/77 99 11/19/20 12:55 97.8 F 76 16 129/77 99
== END 2020-11-19 13:23 | disposition home or self-care (01) ==
LOC: JP.ED 12:21
DX: R10.10 Upper abdominal pain, unspecified (principal); K92.0 Hematemesis; Z72.0 Tobacco use; Z88.1 Allergy status to other antibiotic agents; Z88.4 Allergy status to anesthetic agent; Z88.0 Allergy status to penicillin; Z88.5 Allergy status to narcotic agent
CPT/HCPCS: 99283

== ENCOUNTER 2020-12-28 05:33 | Day surgery (SDC) | payer MEDICAID ==
[2020-12-28] MEDS ORDERED: Dextrose 5%-Lactated Ringers 1,000 ML IV SCH (06:00)
[2020-12-28] MEDS ORDERED: Bupivacaine 0.5%/EPINEPHrine 1:200,000 50 ML MDV ONE (06:33)
[2020-12-28] MEDS ORDERED: Propofol 200 MG/20 ML SDV ONE (07:05)
[2020-12-28] MEDS ORDERED: Ondansetron 4 MG/2 ML SDV ONE (07:05)
[2020-12-28] MEDS ORDERED: Dexamethasone 4 MG/ML SDV ONE (07:05)
[2020-12-28] MEDS ORDERED: Succinylcholine 200 MG/10 ML MDV ONE (07:05)
[2020-12-28] MEDS ORDERED: Neostigmine Methylsulfate 1 MG/ML 5 ML Syringe ONE (07:05)
[2020-12-28] MEDS ORDERED: Glycopyrrolate 0.2 MG/ML 5 ML MDV ONE (07:05)
[2020-12-28] MEDS ORDERED: Rocuronium 50 MG/5 ML Vial ONE (07:05)
[2020-12-28] MEDS ORDERED: fentaNYL 250 MCG/5 ML SDV ONE (07:05)
[2020-12-28] MEDS ORDERED: Meropenem 500 MG in Sodium Chloride 0.9% 50 ML IV ONE (07:15)
[2020-12-28] MEDS ORDERED: Albuterol/Ipratropium 3.0-0.5 MG/3 ML Neb Soln NEB ONE (07:15)
[2020-12-28] MEDS ORDERED: Labetalol 20 MG/4 ML Syringe ONE (07:26)
[2020-12-28] MEDS ORDERED: Magnesium Hydroxide 400 MG/5 ML Susp 30 ML Cup PO PRN (08:55)
[2020-12-28] MEDS ORDERED: Hydrocortisone Sodium Succinate 100 MG/2 ML SDV IVPUSH PRN (09:45)
[2020-12-28] MEDS ORDERED: diphenhydrAMINE 50 MG/ML SDV IVPUSH PRN (09:45)
[2020-12-28] MEDS ORDERED: Doxycycline 100 MG Cap PO ONE (09:45)
[2020-12-28] MEDS ORDERED: Famotidine 20 MG/2 ML SDV IVPUSH PRN (09:45)
[2020-12-28 12:36] VITALS: BP 99/64; PULSE 78
--- NOTE | 2021-01-03 16:29 | OR ---
DATE OF PROCEDURE: 12/28/2020 SURGEON: Adelso Crane MD PREOPERATIVE DIAGNOSIS: Prolapsing hemorrhoids. POSTOPERATIVE DIAGNOSIS: Circumferentially anorectal prolapse. PROCEDURE PERFORMED: Stapled proctopexy via perineal approach (53913). ANESTHESIA: General. INDICATIONS FOR PROCEDURE: This is a 30-year-old presenting with a history of prolapsing and painful hemorrhoids. These have been refractory to medical management. After preop evaluation and discussion, she wished to proceed with a hemorrhoidectomy-type procedure. Final decision regarding the extent of the procedure would remain intraoperative based on findings at the time of her examination with Anesthesia present. Potential risks of the procedure including bleeding, infection, problems with fecal incontinence following the procedure, as well as continued pain or bleeding were all discussed, and the patient wishes to proceed. DETAILS OF PROCEDURE: The patient was taken to the operating room. After general endotracheal anesthesia was induced, she was placed in a lithotomy position and a perianal prep performed. Initial examination showed now in a relaxed states areas of circumferential anorectal prolapse. This included the anorectal mucosa as well as some of the underlying musculature. The decision at this point was made to proceed with a stapled proctopexy which would be more of a definitive procedure with less associated morbidity as far as absence of resection of the hemorrhoidal columns per se. At this point, the retractor was placed and a circumferential stitch of 3-0 Prolene was placed roughly 2 to 3 cm above the dentate line more or less circumferentially. Once this was in place, the proctopexy stapler was placed with the angle above the pursestring area. This was then pulled tight and the stapler then closed. Care was taken to confirm that there was no encroachment of the vaginal wall. Once this was in place, the stapler was closed and fired and the circumferential rectal mucosa was then confirmed to have been removed. There was no significant bleeding from the staple line, and the area was anesthetized with 1% lidocaine mixed with Marcaine, and the procedure was then concluded. There was a visible judd improvement in the anorectal anatomy at this point, and the patient was taken to the recovery room in satisfactory condition. Adelso Crane MD /[id number]
== END 2020-12-28 11:30 | disposition home or self-care (01) ==
LOC: JP.SDS 05:33
PROVIDERS: ATTEND Surgery
DX: K62.2 Anal prolapse (principal); K64.8 Other hemorrhoids; K91.2 Postsurgical malabsorption, not elsewhere classified; E55.9 Vitamin D deficiency, unspecified; E53.8 Deficiency of other specified B group vitamins; E50.9 Vitamin A deficiency, unspecified; E53.9 Vitamin B deficiency, unspecified
CPT/HCPCS: 36415; 45541; 81025; 82728; 88304; 94640; A9270; J0330; J1100; J2185; J2405; J2704; J3010; J3490; J7121; Q0138; J2710; J7620-GY

== ENCOUNTER 2021-01-25 10:28 | Inpatient (IN) | payer MEDICAID ==
[~2021-01-25 10:28] MED LIST changes: -Acetaminophen 500 MG Tab PO ONE; -Bupivacaine 0.5%/EPINEPHrine 1:200,000 50 ML MDV ONE; +Dexamethasone 4 MG/ML SDV ONE; +Glycopyrrolate 0.2 MG/ML 5 ML MDV ONE; +Neostigmine Methylsulfate 1 MG/ML 5 ML Syringe ONE; +Ondansetron 4 MG/2 ML SDV ONE; +Propofol 200 MG/20 ML SDV ONE; +Rocuronium 50 MG/5 ML Vial ONE; +fentaNYL 250 MCG/5 ML SDV ONE
[2021-01-25] MEDS ORDERED: Dextrose 5%-Lactated Ringers 1,000 ML IV SCH ×2 (11:00→15:00)
[2021-01-25] MEDS ORDERED: Acetaminophen 500 MG Tab PO ONE (11:00)
[2021-01-25] MEDS: Bupivacaine 0.5% 50 ML MDV ONE ×2 (11:30→13:00)
[2021-01-25] MEDS: Meropenem 500 MG SDV ONE ×2 (11:31→13:00)
[2021-01-25] MEDS: Lidocaine 1% with EPINEPHrine 1:100,000 50 ML MDV ONE ×2 (11:31→13:00)
[2021-01-25] MEDS ORDERED: Albuterol/Ipratropium 3.0-0.5 MG/3 ML Neb Soln NEB ONE (11:45)
[2021-01-25] MEDS ORDERED: Ketamine 50 MG in Sodium Chloride 0.9% 49.5 ML IV SCH (12:00)
[2021-01-25] MEDS ORDERED: Ketamine 500 MG/5 ML MDV IV SCH (12:00)
[2021-01-25] MEDS ORDERED: Meropenem 500 MG in Sodium Chloride 0.9% 50 ML IV ONE (12:00)
[2021-01-25] MEDS ORDERED: diphenhydrAMINE 25 MG Cap PO PRN (12:30)
[2021-01-25] MEDS ORDERED: diphenhydrAMINE 50 MG/ML SDV IVPUSH PRN (12:30)
[2021-01-25] MEDS ORDERED: Ondansetron 4 MG/2 ML SDV IVPUSH PRN ×2 (12:30→15:02)
[2021-01-25] MEDS ORDERED: Naloxone 0.4 MG/ML SDV IVPUSH PRN (12:30)
[2021-01-25] MEDS: HYDROmorphone/Normal Saline 15 MG/30 ML PCA IV PRN (13:00)
[2021-01-25] MEDS ORDERED: Lactated Ringers 1,000 ML ONE (13:11)
[2021-01-25] MEDS ORDERED: fentaNYL 100 MCG/2 ML SDV ONE (13:18)
[2021-01-25] MEDS ORDERED: Albuterol/Ipratropium 3.0-0.5 MG/3 ML Neb Soln INH PRN (15:08)
[2021-01-25] MEDS: Cyclobenzaprine 10 MG Tab PO PRN (15:18)
[2021-01-25] MEDS: hydrOXYzine HCL 100 MG/2 ML SDV IM PRN (15:18)
[2021-01-25] MEDS: Albuterol/Ipratropium 3.0-0.5 MG/3 ML Neb Soln INH SCH ×2 (15:20→20:32)
[2021-01-25] MEDS ORDERED: Cyanocobalamin (Vitamin B12) 1,000 MCG/ML SDV IM ONE (17:00)
[2021-01-25] MEDS: Meropenem 500 MG in Sodium Chloride 0.9% 50 ML IV SCH ×2 (17:24→23:00)
[2021-01-25] MEDS: Acetaminophen 325 MG Tab PO SCH ×2 (17:36→22:50)
[2021-01-25] MEDS: Docusate Sodium 100 MG Cap PO SCH (20:34)
[2021-01-25] MEDS: QUEtiapine 25 MG Tab PO SCH (20:34)
[2021-01-25] MEDS: ClonazePAM 0.5 MG Tab PO SCH (20:40)
[2021-01-25] MEDS: Zolpidem 5 MG Tab PO PRN (20:40)
[2021-01-26] MEDS: Acetaminophen 325 MG Tab PO SCH ×4 (04:08→22:22)
[2021-01-26] MEDS: HYDROmorphone/Normal Saline 15 MG/30 ML PCA IV PRN (04:50)
[2021-01-26] MEDS: Meropenem 500 MG in Sodium Chloride 0.9% 50 ML IV SCH (05:17)
[2021-01-26] MEDS: Albuterol/Ipratropium 3.0-0.5 MG/3 ML Neb Soln INH SCH ×4 (06:57→20:50)
[2021-01-26] MEDS: Docusate Sodium 100 MG Cap PO SCH ×2 (08:06→20:50)
[2021-01-26] MEDS: ClonazePAM 0.5 MG Tab PO SCH ×3 (08:09→20:49)
[2021-01-26] MEDS ORDERED: Dextrose 5%-Lactated Ringers 1,000 ML IV SCH (08:15)
[2021-01-26] MEDS: HYDROmorphone 0.5 MG/0.5 ML Syringe IVPUSH PRN ×2 (08:31→11:57)
[2021-01-26] MEDS ORDERED: Docusate Sodium 100 MG Cap PO SCH (09:00)
[2021-01-26] MEDS: Nicotine 14 MG/24 Hr Patch TRDERM SCH (09:34)
[2021-01-26] MEDS: Bisacodyl 5 MG Tab PO SCH ×2 (09:34→20:50)
[2021-01-26] MEDS ORDERED: HYDROmorphone 2 MG Tab PO PRN (11:59)
[2021-01-26] MEDS: Cyclobenzaprine 10 MG Tab PO PRN (12:06)
--- NOTE | 2021-01-26 12:16 | PN ---
DATE OF SERVICE: 01/26/2021 SUBJECTIVE: Gayathri is postop day #1. Pain she states has not been controlled with the APPETIZER PACKER. She states she would rather have the IV Dilaudid. Reports she is hungry. Vital signs, temperature max of 99.3. Oral intake 480. Urine output 1305. RENETTA drain put out 43 mL of a light pink drainage. REVIEW OF SYSTEMS: Remainder of review of systems negative for any pertinent positives and negatives. OBJECTIVE: GENERAL: Gayathri Chong is a 30-year-old female. She is alert, orientated, quite talkative. VITAL SIGNS: TPR is 99.3, 116, 16, blood pressure 97/57. HEENT: Negative. NECK: Supple. HEART: Regular rate and rhythm. LUNGS: Clear. ABDOMEN: Dressings dry and intact. RENETTA drain as above. EXTREMITIES: Without peripheral edema. ASSESSMENT: Exploratory laparotomy with lysis of adhesions. 1. Total abdominal hysterectomy, bilateral salpingo-oophorectomy. 2. Fulguration of pelvic endometriosis. 3. Mobilization of omentum into pelvis. 4. Placement of Interceed mesh over vaginal cuff. POSTOPERATIVE DIAGNOSES: 1. Chronic pelvic pain with recurrent ovarian cyst. 2. Focal pelvic endometriosis. 3. Extensive intraabdominal adhesions. 4. Date of procedure: 01/25/2021. Surgeon: Adelso Crane MD. PLAN: 1. Full liquid diet. 2. Colace 100 mg p.o. b.i.d. 3. Dulcolax tablets 2 b.i.d. p.o. 4. Decrease IV to 80 mL per hour. 5. Nicotine patch 14 daily. Take off at bedtime. 6. Discontinue APPETIZER PACKER. 7. Dilaudid IV 0.5 mg every 3 hours p.r.n. pain. 8. Continue use of incentive spirometer. 9. We will evaluate p.r.n. or in a.m. Louisa Arora PA-C /[id number]
[2021-01-26] MEDS: hydrOXYzine HCL 100 MG/2 ML SDV IM PRN (15:43)
[2021-01-26] MEDS: HYDROmorphone 2 MG Tab PO PRN ×2 (17:11→20:48)
[2021-01-26] MEDS: Zolpidem 5 MG Tab PO PRN (20:49)
[2021-01-26] MEDS: QUEtiapine 25 MG Tab PO SCH (20:50)
[2021-01-27] MEDS: HYDROmorphone 2 MG Tab PO PRN ×6 (00:33→21:39)
[2021-01-27] MEDS: Acetaminophen 325 MG Tab PO SCH ×4 (04:14→22:05)
[2021-01-27] MEDS: Albuterol/Ipratropium 3.0-0.5 MG/3 ML Neb Soln INH SCH ×4 (07:02→21:37)
[2021-01-27] MEDS: Cyclobenzaprine 10 MG Tab PO PRN (07:32)
[2021-01-27] MEDS: ClonazePAM 0.5 MG Tab PO SCH ×3 (08:15→21:39)
[2021-01-27] MEDS: Docusate Sodium 100 MG Cap PO SCH ×2 (09:47→21:39)
[2021-01-27] MEDS: Bisacodyl 5 MG Tab PO SCH ×2 (09:47→21:37)
[2021-01-27] MEDS: Nicotine 14 MG/24 Hr Patch TRDERM SCH (09:47)
[2021-01-27] MEDS: Zolpidem 5 MG Tab PO PRN (21:39)
[2021-01-27] MEDS: QUEtiapine 25 MG Tab PO SCH (21:39)
[2021-01-28] MEDS: HYDROmorphone 2 MG Tab PO PRN ×2 (04:25→08:17)
[2021-01-28] MEDS: Acetaminophen 325 MG Tab PO SCH (04:25)
[2021-01-28] MEDS: Albuterol/Ipratropium 3.0-0.5 MG/3 ML Neb Soln INH SCH (07:18)
[2021-01-28] MEDS: Nicotine 14 MG/24 Hr Patch TRDERM SCH (08:18)
[2021-01-28] MEDS: Docusate Sodium 100 MG Cap PO SCH (08:18)
[2021-01-28] MEDS: Bisacodyl 5 MG Tab PO SCH (08:18)
[2021-01-28] MEDS: ClonazePAM 0.5 MG Tab PO SCH (08:22)
[2021-01-28 08:47] VITALS: BP 93/56; PULSE 99
[2021-01-28] MEDS ORDERED: Celecoxib 200 MG Cap PO ONE (09:00)
--- NOTE | 2021-01-30 10:40 | DISCH ---
FINAL DIAGNOSES: 1. Chronic pelvic pain with recurrent ovarian cyst and associated pelvic endometriosis. 2. Status post esophagogastrectomy for treatment of gastroparesis. 3. Fatty liver with elevated liver function tests. 4. Dysthymic disorder. 5. Irritable bowel syndrome. 6. History of multiple bony fractures. OPERATIVE PROCEDURES: Done on 01/25/2021, exploratory laparotomy with lysis of adhesions and: 1. Total abdominal hysterectomy with bilateral salpingo-oophorectomy. 2. Fulguration of pelvic endometriosis. 3. Mobilization of omentum into pelvis and placement of Interceed mesh over vaginal cuff to limit recurrent adhesion formation. SUMMARY: This is a 30-year-old female presenting with problems with recurrent chronic pelvic pain associated with recurrent problems with ovarian cysts. She also has history of previous ASCUS with high-risk HPV. After extensive preop evaluation and discussion, she wished to proceed with total abdominal hysterectomy with bilateral salpingo-oophorectomy. She presently has an implantable contraception device in place which would be left in place for the time being pending discussion of hormone replacement treatment with Dr. Fitch. The patient had no significant postoperative problems. She has presently tolerated diet, moving her bowels, and urine flow was adequate. The patient will be following up with Louisa Arora at [facility] next week for the surgery department and we will set her up to see Dr. Chetan Fitch the week of 02/07/2021 to address hormone replacement therapy. There may be a component of useful hormone release from the implantable device that the patient has at this point. Otherwise if Dr. Fitch wishes to have that removed, we can do that as an outpatient procedure in the clinic. Medications on discharge will include her previous medications plus Celebrex 200 mg p.o. b.i.d. x15 days, Tylenol 650 mg p.o. q.6 hours p.r.n., and Dilaudid 2 mg p.o. q.6 hours p.r.n. pain #12. She does have a pain contract with Dr. Fitch for which she gets Evelia, so as to keep the Tylenol dosing straight. She has been on Tylenol 650 q.6 hours scheduled and then Dilaudid 2 mg q.4 to 6 hours on discharge. She will be sent home with Celebrex 200 mg p.o. b.i.d. x15 days, Tylenol 650 p.o. q.6 hours p.r.n. pain, and then Dilaudid 2 mg p.o. q.6 hours p.r.n. pain #12, that will need to be cleared with the clinic. Dr. Fitch who is her pain contract doctor is on vacation and Discharge Planning will be working on that issue. /[id number]
--- NOTE | 2021-02-01 08:58 | PN ---
DATE OF SERVICE: 01/27/2021 The patient is passing some flatus. No bowel movement as of yet. Presently, she is requiring 4 mg of Dilaudid every 4 hours. We will hopefully decrease Dilaudid in the next 24 hours in terms of interval at least. We will go up to a regular diet. Continue bowel stimulation. She may be ready for discharge home tomorrow. Adelso Crane MD /[id number]
--- NOTE | 2021-02-02 13:12 | OR ---
DATE OF PROCEDURE: 01/25/2021 SURGEON: Adelso Crane MD PREOPERATIVE DIAGNOSIS: Chronic pains associated with recurrent ovarian cyst. POSTOPERATIVE DIAGNOSES: 1. Chronic pains associated with recurrent ovarian cyst. 2. Focal pelvic endometriosis. 3. Extensive intraabdominal adhesions. PROCEDURE PERFORMED: Exploratory laparotomy with lysis of adhesions: 1. Total abdominal hysterectomy with bilateral salpingo-oophorectomy (99632). 2. Fulguration of pelvic endometriosis (67672). 3. Mobilization of omentum into pelvis and placement of Interceed mesh over vaginal cuff to limit recurrent adhesion formation (28962). ANESTHESIA: General. INDICATION FOR PROCEDURE: A 30-year-old female presented with chronic pelvic pain who has had a history of multiple ovarian cysts in the past, and at this point, wishes to undergo a total abdominal hysterectomy with bilateral salpingo-oophorectomy. She is aware that to avoid menopausal symptoms and potential adverse side effects such as bone thinning, she will need to follow immediately with her primary physicians regarding hormone replacement over time. Otherwise, potential risks including bleeding, infection, injury to underlying viscera, problems with persistent pain following the procedure were all reviewed, and the patient wishes to proceed. DETAILS OF PROCEDURE: The patient was taken to the operating room. After general endotracheal anesthesia was induced, a vaginal prep was performed, Aleman catheter inserted, and the abdomen prepped and draped. A Pfannenstiel-type incision was then made and carried down through the skin, subcutaneous tissue, and rectus sheath. Subrectus sheath flaps were then raised superiorly and inferiorly, and the midline fascia was divided. This allowed entrance into the peritoneal cavity. Upon entering the peritoneal cavity, the patient was noted to have a small amount of bloody fluid present. This was a scantly bloody fluid related to some endometriosis that the patient had in the pelvic sidewall bilaterally and overlying the area of bladder. These areas of endometriosis were then divided with electrocautery. The uterus was then mobilized upward. The infundibulopelvic and broad ligaments were divided with SHAMIR wiley on each side. The peritoneal reflection of the bladder on the uterus was divided and the bladder dissected down to the level of the upper vagina. Hysterectomy clamps were then placed across the upper vagina and adjacent to the uterus, included the uterosacral ligament to provide subsequent support for the vaginal cuff. The vaginal cuff was then divided adjacent to the cervix and the specimen delivered from the field. Vaginal cuff closure was accomplished with continuation of the 0 Vicryl sutures which were then placed underneath the clamps, again including the uterosacral ligaments to help suspend the vaginal cuff, and these sutures were in the midline and tied. At this point, no further problems were noted. A Torito-Chacon drain was taken through a stab wound in the right mid abdomen, taken down in the area of the vaginal cuff. The area was irrigated with meropenem-containing saline solution. Over the vaginal cuff, Interceed mesh was placed to minimize adhesions in that area, and the omentum was then brought down in the pelvis and fixed to the pelvic sidewall with some 3-0 Vicryl stitch to displace the small bowel from the pelvis and the anterior abdominal wall to limit recurrent adhesion formation in those areas. The midline peritoneum was approximated with #2 Vicryl stitch as was the anterior rectus sheath, and the subcutaneous tissue was approximated with some 4-0 Vicryl stitch and the skin with 5-0 Vicryl subcuticular stitch. Surgical glue was then applied. Prior to closure, bilateral transversus abdominis plane blocks were placed, and the patient was taken to the recovery room in satisfactory condition. Adelso Crane MD /[id number]
== END 2021-01-28 11:13 | disposition home or self-care (01) | DRG 743 ==
LOC: JP.SDS 10:28 → EDSTATUS 12:55 → JP.MS 13:20 → UNDOADMIN 14:26
PROVIDERS: ADMIT Surgery; ATTEND Surgery
PROC: 0UT90ZZ Resection of Uterus, Open Approach (ICD-10-PCS; principal; 2021-01-25)
PROC: 0UT20ZZ Resection of Bilateral Ovaries, Open Approach (ICD-10-PCS; 2021-01-25)
PROC: 0UT70ZZ Resection of Bilateral Fallopian Tubes, Open Approach (ICD-10-PCS; 2021-01-25)
PROC: 0U5B0ZZ Destruction of Endometrium, Open Approach (ICD-10-PCS; 2021-01-25)
PROC: 3E0M05Z Introduction of Adhesion Barrier into Peritoneal Cavity, Open Approach (ICD-10-PCS; 2021-01-25)
DX: N80.3 Endometriosis of pelvic peritoneum (principal); N83.202 Unspecified ovarian cyst, left side; N83.201 Unspecified ovarian cyst, right side; K58.9 Irritable bowel syndrome, unspecified; F34.1 Dysthymic disorder; K76.0 Fatty (change of) liver, not elsewhere classified; D64.9 Anemia, unspecified; K21.9 Gastro-esophageal reflux disease without esophagitis; F41.1 Generalized anxiety disorder; I48.91 Unspecified atrial fibrillation; G47.33 Obstructive sleep apnea (adult) (pediatric); N73.6 Female pelvic peritoneal adhesions (postinfective); Z87.440 Personal history of urinary (tract) infections; Z98.84 Bariatric surgery status; Z88.0 Allergy status to penicillin; Z88.1 Allergy status to other antibiotic agents; Z79.899 Other long term (current) drug therapy
CPT/HCPCS: 36415; 80053; 82728; 83735; 84100; 85027; 88309; 88342; 94640; 94762; A9270-GY; J0171; J1100; J1170; J2185; J2405; J2704; J2710; J2795; J3010; J3410; J3420; J3490; J7120; J7121; J7620-GY

== ENCOUNTER 2021-05-09 14:42 | Emergency (ER) | payer MEDICAID ==
[2021-05-09 14:48] VITALS: BP 108/79; PULSE 99
--- NOTE | 2021-05-09 15:08 | CT ---
Head wo Cont CLINICAL HISTORY: Migraine symptoms COMPARISON: May 2019 TECHNIQUE: Transverse scans were obtained from the base of the skull through the vertex without IV contrast on a multislice, multidetector CT scanner. Auto dosage reduction and iterative reconstruction techniques employed. FINDINGS: No focal abnormal parenchymal density is identified. There is no mass effect, hemorrhage, or extraaxial collection. The basal cisterns and sulci over the convexities are normal. The ventricles are normal. IMPRESSION: Essentially negative noncontrast CT brain for age
[2021-05-09] MEDS ORDERED: Ibuprofen 600 MG Tab PO ONE (15:17)
--- NOTE | 2021-05-09 15:18 | EDM.PDOC ---
ED HPI GENERAL MEDICAL PROBLEM - General Chief Complaint: Neurological Problem Stated Complaint: MEDICAL VIA TRI Time Seen by Provider: 05/09/21 14:50 Source of Information: Reports: Patient, EMS History Limitations: Reports: No Limitations - History of Present Illness INITIAL COMMENTS - FREE TEXT/NARRATIVE: 30-year-old female brought in by ambulance after having a variety of neurologic symptoms including a right periorbital pain, black or tunnel vision of the right eye, a posterior headache, and left-sided weakness and aphasia. She was brought in by EMS and an urgent CT of the head was obtained. Her speech is clear and normal, her demeanor seems perfectly fine but she claims that she cannot see out of her right eye. She does not look uncomfortable. She was able to transfer out of the wheelchair onto the bed with assistance. No incontinence, no seizure activity, no shortness of breath or chest pain. No palpitations. Onset: Sudden (Fairly sudden onset of symptoms about an hour ago) Location: Reports: Other (Described above) Improves with: Reports: Other (Seems to be improving over time, especially the aphasia) Worsens with: Reports: None Associated Symptoms: Reports: Confusion, Headaches, Weakness, Other (Aphasia, right-sided vision loss) Right Posterior Head Pain Score (Numeric/FACES): 8 - Related Data Allergies Allergy/AdvReac Type Severity Reaction Status Date / Time amoxicillin [Amoxicillin] Allergy Unknown Rash Verified 01/25/21 10:57 Penicillins Allergy Unknown Rash Verified 01/25/21 10:57 Aminoglycosides Allergy Cannot Verified 01/25/21 10:57 Remember droperidol Allergy Anxiety Verified 01/25/21 10:57 Iodinated Contrast Media Allergy Anxiety Verified 01/25/21 10:57 levofloxacin Allergy Rash Verified 01/25/21 10:57 metoclopramide [From Reglan] Allergy Anxiety Verified 01/25/21 10:57 promethazine [From Phenergan] Allergy Nausea Verified 01/25/21 10:57 prochlorperazine edisylate AdvReac Intermediate Tachycardia Verified 01/25/21 10:57 [From Compazine] prochlorperazine maleate AdvReac Intermediate Tachycardia Verified 01/25/21 10:57 [From Compazine] cephalexin monohydrate AdvReac Unknown Vomiting Verified 01/25/21 10:57 [From Keflex] erythromycin base AdvReac Unknown Abdominal Verified 01/25/21 10:57 [Erythromycin Base] Pain lidocaine AdvReac Nausea and Verified 01/25/21 10:57 Vomiting Home Meds: Home Meds ondansetron HCL [Ondansetron] 4 mg PO Q8HR PRN 02/20/13 [History] Albuterol Sulfate [Proair Hfa] 2 puff IH Q4H PRN 04/16/13 [History] QUEtiapine [SEROquel] 50 mg PO BEDTIME 02/02/17 [History] Methylcellulose (with Sugar) [Citrucel] 1 tbsp PO BID PRN 01/17/19 [History] ClonazePAM [KlonoPIN] 0.5 mg PO TID 09/13/20 [History] Zolpidem Tartrate [Ambien] 10 mg PO BEDTIME 09/13/20 [History] Calcium Carbonate [Tums] 1,250 mg PO ASDIRECTED 12/24/20 [History] Cyclobenzaprine [Flexeril] 10 mg PO TID PRN 12/24/20 [History] Docusate Sodium 100 mg PO BID 12/24/20 [History] Loperamide [Imodium] 2 mg PO DAILY PRN 12/24/20 [History] Omeprazole 40 mg PO DAILY 12/24/20 [History] Sucralfate [Carafate] 1 gm PO BID 12/24/20 [History] Cyanocobalamin (Vitamin B-12) [Cyanocobalamin Injection] 1,000 mcg IM .MONTHLY 12/28/20 [History] Famotidine 40 mg PO DAILY 01/25/21 [History] Acetaminophen [Tylenol Arthritis] 650 mg PO Q6H 5 Days #20 tablet.er 01/28/21 [Rx] Celecoxib [CeleBREX] 200 mg PO BID 15 Days #30 cap 01/28/21 [Rx] Past Medical History HEENT History: Reports: Allergic Rhinitis, Impaired Vision, Other (See Below) Other HEENT History: enlarged optic nerve Cardiovascular History: Reports: Arrhythmia, SOB on Exertion, Syncope, Other (See Below) Other Cardiovascular History: tachycardia; PVC's Respiratory History: Reports: Asthma, Sleep Apnea, Other (See Below) Other Respiratory History: hx partially collapsed lung Gastrointestinal History: Reports: Bowel Obstruction, Colon Polyp, GERD, Hemorrhoids, Hiatal Hernia, Pancreatitis, Other (See Below) Other Gastrointestinal History: ulcers, gastroparesis, bezoars, esophageal strictures. Candy Cane Limb syndrome Genitourinary History: Reports: Renal Calculus, Retention, Urinary, Other (See Below) Other Genitourinary History: PCOS [employer] History: Reports: Polycystic Ovaries, Musculoskeletal History: Reports: Fracture, Fibromyalgia Neurological History: Reports: Concussion, Other (See Below) Other Neuro History: "brain bleed" Psychiatric History: Reports: Anxiety, Depression, Psych Hospitalization(s), PTSD, Suicide Attempt, Other (See Below) Other Psychiatric History: mooddisorder unclasified Endocrine/Metabolic History: Reports: Vitamin D Deficiency, Other (See Below) Other Endocrine/Metabolic History: hypoglycemia Hematologic History: Reports: Anemia, B12 Deficiency, Folic Acid, Iron Deficiency Dermatologic History: Reports: Other (See Below) Other Dermatologic History: skin rashes and acne; abdnormal moles - Infectious Disease History Infectious Disease History: Reports: Chicken Pox, Influenza, Mononucleosis - Past Surgical History Head Surgeries/Procedures: Reports: None HEENT Surgical History: Reports: Oral Surgery Cardiovascular Surgical History: Reports: Other (See Below) Other Cardiovascular Surgeries/Procedures: ECHO Respiratory Surgical History: Reports: None GI Surgical History: Reports: Bariatric Procedure, Cholecystectomy, Colonoscopy, EGD, Esophageal Dilatation, Hernia Repair/Other, Felix Fundoplication, Polypectomy, Small Bowel, Other (See Below) Other GI Surgeries/Procedures: fistula, perforation Female Surgical History: Reports: Cystectomy, Cystoscopy Endocrine Surgical History: Reports: None Neurological Surgical History: Reports: None Musculoskeletal Surgical History: Reports: None Dermatological Surgical History: Reports: Skin Biopsy Social & Family History - Family History Family Medical History: No Pertinent Family History Cardiac: Reports: CAD Respiratory: Reports: Asthma GI: Reports: Other (See Below) Other GI Family History: Celiac : Reports: Renal Disease/Insufficiency OBGYN: Reports: Other (See Below) Other OBGYN Family History: PCOS Neurological: Reports: CVA Psychiatric: Reports: Schizophrenia Endocrine/Metabolic: Reports: Diabetes, type II Hematologic: Reports: Other (See Below) Other Hematologic Family History: hemachromatosis Oncologic: Reports: Colon, Uterine - Tobacco Use Tobacco Use Status *Q: Current Every Day Tobacco User Years of Tobacco use: 10 Packs/Tins Daily: 0.3 - Caffeine Use Caffeine Use: Reports: Soda Caffeine Use Comment: 1 pop a day - Living Situation & Occupation Living situation: Reports: Single, with Family (lives with Mom in [place], [place]. no children.) ED ROS GENERAL - Review of Systems Review Of Systems: See Below Constitutional: Denies: Fever, Chills, Malaise HEENT: Reports: Vision Change (Loss of vision in the right eye after a black tunnel or donut visual loss at the onset) Respiratory: Reports: No Symptoms Cardiovascular: Reports: No Symptoms GI/Abdominal: Reports: No Symptoms : Reports: No Symptoms Musculoskeletal: Reports: Other (Some chronic back discomfort) Skin: Denies: Pallor, Diaphoresis Neurological: Reports: Headache, Weakness, Other (Paresthesias of the hands and feet both sides) Psychiatric: Reports: Anxiety ED EXAM, GENERAL - Physical Exam Exam: See Below Exam Limited By: No Limitations General Appearance: Alert, No Apparent Distress Eye Exam: Right Eye: Other (Claims to only see light from the right eye. Funduscopic exam was completely normal with sharp optic disc and normal vasculature), Bilateral Eye: EOMI, PERRL Ears: Normal TMs Head: Atraumatic Neck: Non-Tender Respiratory/Chest: Lungs Clear Cardiovascular: Regular Rate, Rhythm GI/Abdominal: Soft, Non-Tender Neurological: Alert, Oriented, Other (Grasp strength on the left side is slightly weaker than the right, she can hold both legs up against gravity. F acial muscles are symmetric speech is clear). No: Inattentive, Confused, Slow to Respond, Unresponsive Psychiatric: Flat Affect Skin Exam: Warm, Dry Course - Vital Signs Last Recorded V/S: Last Vital Signs Temp 98.3 F 05/09/21 14:47 Pulse 99 05/09/21 14:47 Resp 16 05/09/21 14:47 BP 108/79 05/09/21 14:47 Pulse Ox 100 05/09/21 14:47 - Orders/Labs/Meds Orders: Active Orders 24 hr Category Date Time Status SEDIMENTATION RATE MANUAL [HEME] Stat Lab 05/09/21 18:55 Received Labs: Laboratory Tests 05/09/21 05/09/21 Range/Units 16:07 16:07 WBC 6.2 (4.5-11.0) K/uL RBC 3.53 (3.30-5.50) M/uL Hgb 11.5 L (12.0-15.0) g/dL Hct 34.0 L (36.0-48.0) % MCV 96 (80-98) fL MCH 33 H (27-31) pg MCHC 34 (32-36) % Plt Count 228 (150-400) K/uL Neut % (Auto) 62.4 (36-66) % Lymph % (Auto) 26.0 (24-44) % Isabela % (Auto) 10.3 H (2-6) % Eos % (Auto) 1.0 L (2-4) % Baso % (Auto) 0.3 (0-1) % Sodium 140 (140-148) mmol/L Potassium 3.3 L (3.6-5.2) mmol/L Chloride 104 (100-108) mmol/L Carbon Dioxide 26 (21-32) mmol/L Anion Gap 13.3 (5.0-14.0) mmol/L BUN 9 D (7-18) mg/dL Creatinine 0.5 L (0.6-1.0) mg/dL Est Cr Clr Drug Dosing 118.88 mL/min Estimated GFR (MDRD) > 60 (>60) Glucose 76 (74-106) mg/dL Calcium 8.4 L (8.5-10.1) mg/dL Meds: Medications Discontinued Medications Generic Name Dose Route Start Last Admin Trade Name Rikq PRN Reason Stop Dose Admin Sodium Chloride 100 mls @ 4 mls/sec 05/09/21 17:00 05/09/21 17:13 Normal Saline IV 4 mls/sec ASDIRECTED VALERY Administration Ibuprofen 600 mg 05/09/21 15:17 05/09/21 15:29 Ibuprofen 600 Mg Tab PO 05/09/21 15:18 600 mg ONETIME ONE Administration Iopamidol 100 ml 05/09/21 17:00 05/09/21 17:13 Iopamidol 755 Mg/Ml 100 Ml Bottle IV 100 ml . DIRECTED VALERY Administration - Re-Assessments/Exams Free Text/Narrative Re-Assessment/Exam: 05/09/21 17:[address] was done which was negative. She was given ibuprofen to see if it would help with the headache as is likely migrainous or even conversion disorder. 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 This result is pending. 05/09/21 18:56 CT angiogram was normal, patient continued to have right visual deficit. I had a long conversation with neurology at [facility] in [place], it was recommended that she have an MRI. I also added a sed rate to her blood work. I went in to talk to the patient about going to [place] when she had left, I assume she is going to [place] but did not wait to be discharged. Departure - Departure Time of Disposition: 18:52 Disposition: Eloped 07 Clinical Impression: Visual loss Headache Qualifiers: Headache type: other vascular headache Qualified Code(s): G44.1 - Vascular headache, not elsewhere classified - Discharge Information Referrals: PCP,None [Primary Care Provider] - Forms: ED Department Discharge Care Plan Goals: Patient left without instructions but I assume she is traveling to [place] for an MRI which is been prearranged through the emergency department [facility]. Dr. Yang, ER physician accepted her in transfer with the understanding if the MRI is negative she will be discharged. Sepsis Event Note (ED) - Evaluation Sepsis Screening Result: No Definite Risk - Focused Exam Vital Signs: Vital Signs Temp Pulse Resp BP Pulse Ox 05/09/21 14:47 98.3 F 99 16 108/79 100 - My Orders Last 24 Hours: My Active Orders 05/09/21 18:55 SEDIMENTATION RATE MANUAL [HEME] Stat - Assessment/Plan Last 24 Hours: My Active Orders 05/09/21 18:55 SEDIMENTATION RATE MANUAL [HEME] Stat
[2021-05-09] MEDS ORDERED: Iopamidol 755 Mg/ML 100 ML Bottle IV SCH (17:00)
[2021-05-09] MEDS ORDERED: Sodium Chloride 0.9% 100 ML IV SCH (17:00)
--- NOTE | 2021-05-09 17:52 | CRLCT ---
For Patients: As a result of the Century Cures Act, medical imaging exams and procedure reports are released immediately into your electronic medical record. You may view this report before your referring provider. If you have questions, please contact your health care provider. DATE: 05/09/2021 CLINICAL HISTORY: Patient with left-sided weakness and right visual loss. TECHNIQUE: Standard helical CT image acquisition through the intracranial circulation following intravenous administration of contrast material with bolus tracking. Multiplanar reconstructed images were performed and interpreted. COMPARISON: CT same day. FINDINGS: There is no cerebral aneurysm or large vessel occlusion. The right internal carotid artery is normal. The right middle cerebral artery and its branches are normal. The right anterior cerebral artery and its branches are normal. The left internal carotid artery is normal. The left middle cerebral artery and its branches are normal. The left anterior cerebral artery and its branches are normal. The anterior communicating artery is well visualized and appears normal. The right vertebral artery and PICA are normal. The left vertebral artery and PICA are normal. The vertebral arteries are codominant. The basilar artery is patent and appears normal. The right posterior cerebral artery is normal. The left posterior cerebral artery is normal. IMPRESSION: Normal CT angiogram of the head without intracranial aneurysm or other neurovascular abnormality. Please note that all CT scans at this facility use dose modulation, iterative reconstruction, and/or weight-based dosing when appropriate to reduce radiation dose to as low as reasonably achievable. Dictated by Maeve Greene MD @ 05/09/2021 9:00:53 PM (Electronically Signed)
== END 2021-05-09 18:54 | disposition left against medical advice (07) ==
LOC: JP.ED 14:42
DX: G44.1 Vascular headache, not elsewhere classified (principal); H54.7 Unspecified visual loss; J45.909 Unspecified asthma, uncomplicated; K21.9 Gastro-esophageal reflux disease without esophagitis; Z72.0 Tobacco use; Z88.0 Allergy status to penicillin; Z88.8 Allergy status to other drugs, medicaments and biological substances; Z91.041 Radiographic dye allergy status; Z88.1 Allergy status to other antibiotic agents; Z88.4 Allergy status to anesthetic agent; Z79.899 Other long term (current) drug therapy
CPT/HCPCS: 36415; 70450; 70496; 80048; 85025; 85651; 99285; A9270; Q9967

== ENCOUNTER 2021-06-04 13:11 | Emergency (ER) | payer MEDICAID ==
[2021-06-04] MEDS ORDERED: Aspirin 81 MG Tab.Chew PO ONE (13:36)
[2021-06-04] MEDS ORDERED: Morphine 2 MG/ML SYRINGE IVPUSH PRN (13:36)
--- NOTE | 2021-06-04 13:41 | EDM.PDOC ---
ED HPI GENERAL MEDICAL PROBLEM - General Chief Complaint: Chest Pain Stated Complaint: MEDICAL VIA [facility] Time Seen by Provider: 06/04/21 13:25 Source of Information: Reports: Patient, Old Records, RN Notes Reviewed History Limitations: Reports: No Limitations - History of Present Illness INITIAL COMMENTS - FREE TEXT/NARRATIVE: 30-year-old female presents emergency department day complaint of chest pain, she states the chest pain started 11:00 approximately 2 and half hours prior to presentation, she herself has no cardiac history she has a strong family history mother myocardial infarction age 49 she states her sister had a myocardial infarction age 29. She herself does not have any cardiac history she does have a history of gastric bypass. She states she was nauseated not diaphoretic and short of breath when the chest pain came she rates it 8 out of 10 at this time pain starts in the chest goes up into the jaw down into the arm on the left side Left Chest Pain Score (Numeric/FACES): 9 - Related Data Allergies Allergy/AdvReac Type Severity Reaction Status Date / Time amoxicillin [Amoxicillin] Allergy Unknown Rash Verified 01/25/21 10:57 Penicillins Allergy Unknown Rash Verified 01/25/21 10:57 Aminoglycosides Allergy Cannot Verified 01/25/21 10:57 Remember droperidol Allergy Anxiety Verified 01/25/21 10:57 Iodinated Contrast Media Allergy Anxiety Verified 01/25/21 10:57 levofloxacin Allergy Rash Verified 01/25/21 10:57 metoclopramide [From Reglan] Allergy Anxiety Verified 01/25/21 10:57 promethazine [From Phenergan] Allergy Nausea Verified 01/25/21 10:57 prochlorperazine edisylate AdvReac Intermediate Tachycardia Verified 01/25/21 10:57 [From Compazine] prochlorperazine maleate AdvReac Intermediate Tachycardia Verified 01/25/21 10:57 [From Compazine] cephalexin monohydrate AdvReac Unknown Vomiting Verified 01/25/21 10:57 [From Keflex] erythromycin base AdvReac Unknown Abdominal Verified 01/25/21 10:57 [Erythromycin Base] Pain lidocaine AdvReac Nausea and Verified 01/25/21 10:57 Vomiting Home Meds: Home Meds ondansetron HCL [Ondansetron] 4 mg PO Q8HR PRN 02/20/13 [History] Albuterol Sulfate [Proair Hfa] 2 puff IH Q4H PRN 04/16/13 [History] QUEtiapine [SEROquel] 50 mg PO BEDTIME 02/02/17 [History] Methylcellulose (with Sugar) [Citrucel] 1 tbsp PO BID PRN 01/17/19 [History] ClonazePAM [KlonoPIN] 0.5 mg PO TID 09/13/20 [History] Zolpidem Tartrate [Ambien] 10 mg PO BEDTIME 09/13/20 [History] Calcium Carbonate [Tums] 1,250 mg PO ASDIRECTED 12/24/20 [History] Cyclobenzaprine [Flexeril] 10 mg PO TID PRN 12/24/20 [History] Docusate Sodium 100 mg PO BID 12/24/20 [History] Loperamide [Imodium] 2 mg PO DAILY PRN 12/24/20 [History] Omeprazole 40 mg PO DAILY 12/24/20 [History] Sucralfate [Carafate] 1 gm PO BID 12/24/20 [History] Cyanocobalamin (Vitamin B-12) [Cyanocobalamin Injection] 1,000 mcg IM .MONTHLY 12/28/20 [History] Famotidine 40 mg PO DAILY 01/25/21 [History] Acetaminophen [Tylenol Arthritis] 650 mg PO Q6H 5 Days #20 tablet.er 01/28/21 [Rx] Celecoxib [CeleBREX] 200 mg PO BID 15 Days #30 cap 01/28/21 [Rx] Nabumetone [Relafen] 500 mg PO BID 06/04/21 [History] Past Medical History HEENT History: Reports: Allergic Rhinitis, Impaired Vision, Other (See Below) Other HEENT History: enlarged optic nerve Cardiovascular History: Reports: Arrhythmia, SOB on Exertion, Syncope, Other (See Below) Other Cardiovascular History: tachycardia; PVC's Respiratory History: Reports: Asthma, Sleep Apnea, Other (See Below) Other Respiratory History: hx partially collapsed lung Gastrointestinal History: Reports: Bowel Obstruction, Colon Polyp, GERD, Hemorrhoids, Hiatal Hernia, Pancreatitis, Other (See Below) Other Gastrointestinal History: ulcers, gastroparesis, bezoars, esophageal strictures. 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 HAND History: Reports: Polycystic Ovaries, Musculoskeletal History: Reports: Fracture, Fibromyalgia Neurological History: Reports: Concussion, Other (See Below) Other Neuro History: "brain bleed" Psychiatric History: Reports: Anxiety, Depression, Psych Hospitalization(s), PTSD, Suicide Attempt, Other (See Below) Other Psychiatric History: mooddisorder unclasified Endocrine/Metabolic History: Reports: Vitamin D Deficiency, Other (See Below) Other Endocrine/Metabolic History: hypoglycemia Hematologic History: Reports: Anemia, B12 Deficiency, Folic Acid, Iron Deficiency Dermatologic History: Reports: Other (See Below) Other Dermatologic History: skin rashes and acne; abdnormal moles - Infectious Disease History Infectious Disease History: Reports: Chicken Pox, Influenza, Mononucleosis - Past Surgical History Head Surgeries/Procedures: Reports: None HEENT Surgical History: Reports: Oral Surgery Cardiovascular Surgical History: Reports: Other (See Below) Other Cardiovascular Surgeries/Procedures: ECHO Respiratory Surgical History: Reports: None GI Surgical History: Reports: Bariatric Procedure, Cholecystectomy, Colonoscopy, EGD, Esophageal Dilatation, Hernia Repair/Other, Felix Fundoplication, Polypectomy, Small Bowel, Other (See Below) Other GI Surgeries/Procedures: fistula, perforation Female Surgical History: Reports: Cystectomy, Cystoscopy Endocrine Surgical History: Reports: None Neurological Surgical History: Reports: None Musculoskeletal Surgical History: Reports: None Dermatological Surgical History: Reports: Skin Biopsy Social & Family History - Family History Family Medical History: No Pertinent Family History Cardiac: Reports: CAD Respiratory: Reports: Asthma GI: Reports: Other (See Below) Other GI Family History: Celiac : Reports: Renal Disease/Insufficiency OBGYN: Reports: Other (See Below) Other OBGYN Family History: PCOS Neurological: Reports: CVA Psychiatric: Reports: Schizophrenia Endocrine/Metabolic: Reports: Diabetes, type II Hematologic: Reports: Other (See Below) Other Hematologic Family History: hemachromatosis Oncologic: Reports: Colon, Uterine - Tobacco Use Tobacco Use Status *Q: Current Every Day Tobacco User Years of Tobacco use: 5 Packs/Tins Daily: 0.5 - Caffeine Use Caffeine Use: Reports: Coffee, Soda Caffeine Use Comment: 1 pop a day - Recreational Drug Use Recreational Drug Use: No - Living Situation & Occupation Living situation: Reports: Single, with Family (lives with Mom in [place], [place]. no children.) ED ROS GENERAL - Review of Systems Review Of Systems: See Below Constitutional: Reports: No Symptoms Respiratory: Reports: Shortness of Breath Cardiovascular: Reports: Chest Pain GI/Abdominal: Reports: Nausea ED EXAM, GENERAL - Physical Exam Exam: See Below Exam Limited By: No Limitations General Appearance: Alert, WD/WN, No Apparent Distress Respiratory/Chest: No Respiratory Distress, Lungs Clear, Normal Breath Sounds, No Accessory Muscle Use, Chest Non-Tender Cardiovascular: Regular Rate, Rhythm, No Murmur GI/Abdominal: Soft, Non-Tender Course - Vital Signs Last Recorded V/S: Last Vital Signs Temp 97.2 F 06/04/21 13:13 Pulse 83 06/04/21 16:25 Resp 16 06/04/21 16:25 BP 104/53 L 06/04/21 16:25 Pulse Ox 97 06/04/21 16:25 - Orders/Labs/Meds Orders: Active Orders 24 hr Category Date Time Status Cardiac Monitoring [RC] .As Directed Care 06/04/21 13:36 Active Chest 2V [CR] Stat Exams 06/04/21 13:36 Taken Morphine Med 06/04/21 13:36 Active 2 mg IVPUSH Q10M PRN EKG 12 Lead [EK] Stat Ther 06/04/21 13:36 Ordered Medication Orders Morphine Sulfate (Morphine 2 Mg/Ml Syringe) 2 mg IVPUSH Q10M PRN PRN Reason: Chest Pain Stop: 06/05/21 13:36 Last Admin: 06/04/21 13:51 Dose: 1 mg Documented by: MARK Labs: Laboratory Tests 06/04/21 06/04/21 06/04/21 Range/Units 13:51 13:51 15:45 WBC 5.2 (3.2-11.0) K/uL RBC 3.82 (3.77-5.24) M/uL Hgb 12.6 (11.2-15.5) Hct 36.5 (34.3-46.0) % MCV 95.5 (81.4-99.0) fL MCH 33.0 (31.6-35.5) pg MCHC 34.5 (31.6-35.5) g/dL Plt Count 227 (130-375) K/uL Immature Gran % (Auto) 0.4 (0.0-0.7) % Neut % (Auto) 55.3 (36-66) % Lymph % (Auto) 32.1 (24-44) % [place] % (Auto) 10.7 H (2-6) % Eos % (Auto) 1.1 L (2-4) % Baso % (Auto) 0.4 (0-1) % Neut # (Auto) 2.89 (1.0-7.6) K/uL Lymph # (Auto) 1.68 (0.8-3.3) K/uL [place] # (Auto) 0.56 (0.20-0.90) K/uL Eos # (Auto) 0.06 L (0.60-0.80) K/uL Baso # (Auto) 0.02 (0.00-0.10) K/uL Immature Gran # (Auto) 0.02 (0.00-0.23) K/uL D-Dimer, Quantitative (0.0-500.0) ng/mL Sodium 142 (140-148) mmol/L Potassium 3.6 (3.6-5.2) mmol/L Chloride 105 (100-108) mmol/L Carbon Dioxide 28 (21-32) mmol/L Anion Gap 9.4 (5.0-14.0) mmol/L BUN 10 (7-18) mg/dL Creatinine 0.5 L (0.6-1.0) mg/dL Est Cr Clr Drug Dosing 112.93 mL/min Estimated GFR (MDRD) > 60 (>60) Glucose 70 L (74-106) mg/dL Calcium 8.9 (8.5-10.1) mg/dL Total Bilirubin 0.3 (0.2-1.0) mg/dL AST 25 D (15-37) U/L ALT 30 D (12-78) U/L Alkaline Phosphatase 133 H (46-116) U/L Troponin I High Sens 5.2 4.3 (<=60.3) pg/mL Total Protein 6.5 (6.4-8.2) g/dL Albumin 3.4 (3.4-5.0) g/dL Globulin 3.1 (2.3-3.5) g/dL Albumin/Globulin Ratio 1.1 L (1.2-2.2) 06/04/21 Range/Units 15:45 WBC (3.2-11.0) K/uL RBC (3.77-5.24) M/uL Hgb (11.2-15.5) Hct (34.3-46.0) % MCV (81.4-99.0) fL MCH (31.6-35.5) pg MCHC (31.6-35.5) g/dL Plt Count (130-375) K/uL Immature Gran % (Auto) (0.0-0.7) % Neut % (Auto) (36-66) % Lymph % (Auto) (24-44) % [place] % (Auto) (2-6) % Eos % (Auto) (2-4) % Baso % (Auto) (0-1) % Neut # (Auto) (1.0-7.6) K/uL Lymph # (Auto) (0.8-3.3) K/uL [place] # (Auto) (0.20-0.90) K/uL Eos # (Auto) (0.60-0.80) K/uL Baso # (Auto) (0.00-0.10) K/uL Immature Gran # (Auto) (0.00-0.23) K/uL D-Dimer, Quantitative 178.46 (0.0-500.0) ng/mL Sodium (140-148) mmol/L Potassium (3.6-5.2) mmol/L Chloride (100-108) mmol/L Carbon Dioxide (21-32) mmol/L Anion Gap (5.0-14.0) mmol/L BUN (7-18) mg/dL Creatinine (0.6-1.0) mg/dL Est Cr Clr Drug Dosing mL/min Estimated GFR (MDRD) (>60) Glucose (74-106) mg/dL Calcium (8.5-10.1) mg/dL Total Bilirubin (0.2-1.0) mg/dL AST (15-37) U/L ALT (12-78) U/L Alkaline Phosphatase (46-116) U/L Troponin I High Sens (<=60.3) pg/mL Total Protein (6.4-8.2) g/dL Albumin (3.4-5.0) g/dL Globulin (2.3-3.5) g/dL Albumin/Globulin Ratio (1.2-2.2) Meds: Medications Generic Name Dose Route Start Last Admin Trade Name Jessica PRN Reason Stop Dose Admin Morphine Sulfate 2 mg 06/04/21 13:36 06/04/21 13:51 Morphine 2 Mg/Ml Syringe IVPUSH 06/05/21 13:36 1 mg Q10M PRN Administration Chest Pain Discontinued Medications Generic Name Dose Route Start Last Admin Trade Name Jessica PRN Reason Stop Dose Admin Aspirin 324 mg 06/04/21 13:36 06/04/21 13:51 Aspirin 81 Mg Tab.Chew PO 06/04/21 13:37 324 mg ONETIME ONE Administration Hydromorphone HCl 1 mg 06/04/21 14:35 06/04/21 14:39 Hydromorphone 1 Mg/Ml Syringe IVPUSH 06/04/21 14:36 1 mg ONETIME ONE Administration Ketorolac Tromethamine 30 mg 06/04/21 16:07 06/04/21 16:20 Ketorolac 30 Mg/Ml Sdv IVPUSH 06/04/21 16:08 30 mg ONETIME ONE Administration - Re-Assessments/Exams Free Text/Narrative Re-Assessment/Exam: 06/04/21 15:35 Initially a pain scale was 8 out of 10 and was given Dilaudid 1 mg IV for pain recheck an hour later her pain had gone from an 8 to a 9 after the Dilaudid Departure - Departure Time of Disposition: 16:39 Disposition: Home, Self-Care 01 Condition: Fair Clinical Impression: Atypical chest pain Instructions: Nonspecific Chest Pain, Adult Referrals: PCP,Unknown [Primary Care Provider] - Forms: ED Department Discharge Additional Instructions: , Continue to use Tylenol or ibuprofen as needed for pain control, please followup with your primary care provider in 3-5 days if not better, please call return to the emergency department with worsening of symptoms. Sepsis Event Note (ED) - Evaluation Sepsis Screening Result: No Definite Risk - Focused Exam Vital Signs: Vital Signs Temp Pulse Resp BP Pulse Ox 06/04/21 16:25 83 16 104/53 L 97 06/04/21 16:05 102 H 22 H 107/73 95 06/04/21 14:41 102 H 18 105/71 97 06/04/21 13:13 97.2 F 102 H 16 111/64 99 - My Orders Last 24 Hours: My Active Orders 06/04/21 13:36 Cardiac Monitoring [RC] .As Directed Chest 2V [CR] Stat Morphine 2 mg IVPUSH Q10M PRN EKG 12 Lead [EK] Stat - Assessment/Plan Last 24 Hours: My Active Orders 06/04/21 13:36 Cardiac Monitoring [RC] .As Directed Chest 2V [CR] Stat Morphine 2 mg IVPUSH Q10M PRN EKG 12 Lead [EK] Stat Plan: Assessment Acuity = acute Site and laterality = atypical chest pain Etiology = unknown Manifestations = none Location of injury = Home Lab values = CBC, CMP unremarkable D-dimer is negative troponin was negative x2 EKG shows no acute process chest x-ray no acute process Plan She had good relief with the Toradol provided in the emergency department have her follow-up with her primary care in the next 3 to 5 days for reevaluation This note was dictated using [employer] voice recognition software please call with any questions on syntax or grammar.
[2021-06-04] MEDS ORDERED: HYDROmorphone 1 MG/ML Syringe IVPUSH ONE (14:35)
[2021-06-04] MEDS ORDERED: Ketorolac 30 MG/ML SDV IVPUSH ONE (16:07)
[2021-06-04 16:26] VITALS: BP 104/53; PULSE 83
--- NOTE | 2021-06-06 09:52 | CR ---
CHEST: 2 view CLINICAL HISTORY:Chest pain COMPARISON:2016 FINDINGS: The heart size, pulmonary vascularity and hilar structures are normal. No infiltrate effusion or pneumothorax is seen. IMPRESSION: No acute cardiopulmonary process.
== END 2021-06-04 16:46 | disposition home or self-care (01) ==
LOC: JP.ED 13:11
DX: R07.89 Other chest pain (principal); J45.909 Unspecified asthma, uncomplicated; K21.9 Gastro-esophageal reflux disease without esophagitis; Z72.0 Tobacco use; Z88.0 Allergy status to penicillin; Z88.8 Allergy status to other drugs, medicaments and biological substances; Z91.041 Radiographic dye allergy status; Z88.1 Allergy status to other antibiotic agents; Z88.4 Allergy status to anesthetic agent; Z79.899 Other long term (current) drug therapy
CPT/HCPCS: 36415; 71046; 80053; 84484; 85025; 85379; 93005; 93010; 96374; 96375; 99285; A9270; J1170; J1885; J2270

== ENCOUNTER 2021-07-03 19:59 | Emergency (ER) | payer MEDICAID ==
[2021-07-03] MEDS ORDERED: Ketorolac 30 MG/ML SDV IM ONE (20:36)
[2021-07-03 20:58] VITALS: BP 99/61; PULSE 90
== END 2021-07-03 21:39 | disposition home or self-care (01) ==
LOC: JP.ED 19:59
DX: K59.01 Slow transit constipation (principal); R14.3 Flatulence; K21.9 Gastro-esophageal reflux disease without esophagitis; Z88.0 Allergy status to penicillin; Z91.041 Radiographic dye allergy status; Z88.1 Allergy status to other antibiotic agents; Z88.4 Allergy status to anesthetic agent; Z88.5 Allergy status to narcotic agent
CPT/HCPCS: 36415; 74019; 80053; 83605; 83690; 85025; 86140; 96372; 99284; J1885

== ENCOUNTER → 2021-07-08 | Day surgery (SDC) | payer MEDICAID ==
[~2021-07-08] MED LIST changes: +Cyanocobalamin (Vitamin B12) 1,000 MCG/ML SDV IM ONE; -Dexamethasone 4 MG/ML SDV ONE; -Glycopyrrolate 0.2 MG/ML 5 ML MDV ONE; +MVI, Adult with Vitamin K 10 ML, Thiamine 200 MG, Chromium/Copper/Mang/Selen/Zn 1 ML in... IV ONE; +MVI, Adult with Vitamin K 10 ML, Thiamine 200 MG, Zinc/Copper/Manganese/Selenium 1 ML i... IV ONE; +Midazolam 1 MG/ML 2 ML SDV ONE; -Neostigmine Methylsulfate 1 MG/ML 5 ML Syringe ONE; -Ondansetron 4 MG/2 ML SDV ONE; -Rocuronium 50 MG/5 ML Vial ONE; +fentaNYL 100 MCG/2 ML SDV ONE; -fentaNYL 250 MCG/5 ML SDV ONE
[2021-07-08 06:24] LABS: CORONAVIRUS COVID-19 NAA NEGATIVE (NEGATIVE)
[2021-07-08 08:27] VITALS: PULSE 88
[2021-07-08 08:37] VITALS: BP 107/67
== END ==
LOC: JP.SDS 05:27
PROVIDERS: ATTEND Surgery
DX: K91.89 Other postprocedural complications and disorders of digestive system (principal); G47.33 Obstructive sleep apnea (adult) (pediatric); F17.200 Nicotine dependence, unspecified, uncomplicated; K21.9 Gastro-esophageal reflux disease without esophagitis; Z01.812 Encounter for preprocedural laboratory examination; Z20.822 Contact with and (suspected) exposure to COVID-19
CPT/HCPCS: 0241U; 43245; J2250; J2704; J3010; J3411; J3420; J7120

== ENCOUNTER 2021-10-31 07:18 | Day surgery (SDC) | payer MEDICAID ==
[~2021-10-31 07:18] MED LIST changes: -Cyanocobalamin (Vitamin B12) 1,000 MCG/ML SDV IM ONE; -MVI, Adult with Vitamin K 10 ML, Thiamine 200 MG, Chromium/Copper/Mang/Selen/Zn 1 ML in... IV ONE; -MVI, Adult with Vitamin K 10 ML, Thiamine 200 MG, Zinc/Copper/Manganese/Selenium 1 ML i... IV ONE
[2021-10-31] MEDS ORDERED: Dextrose 5%-Lactated Ringers 1,000 ML IV SCH (07:30)
[2021-10-31] MEDS ORDERED: Glycopyrrolate 0.2 MG/ML 2 ML SDV IVPUSH ONE (07:30)
[2021-10-31 10:48] VITALS: BP 108/75; PULSE 100
== END 2021-10-31 10:40 | disposition home or self-care (01) ==
LOC: JP.SDS 07:18
PROVIDERS: ATTEND Surgery
DX: R04.2 Hemoptysis (principal); Z98.84 Bariatric surgery status; K21.9 Gastro-esophageal reflux disease without esophagitis
CPT/HCPCS: J2250; J2704; J3010; J3490; J7121

== ENCOUNTER 2021-12-15 10:48 | Inpatient (IN) | payer MEDICAID ==
[2021-12-15] MEDS ORDERED: Albuterol 8 GM Inhaler INH PRN (11:31)
[2021-12-15] MEDS ORDERED: hydrOXYzine HCl 25 MG Tab PO PRN (11:32)
[2021-12-15] MEDS: ClonazePAM 1 MG Tab PO PRN ×2 (11:48→21:16)
[2021-12-15] MEDS: Celecoxib 200 MG Cap PO PRN ×2 (11:50→20:32)
[2021-12-15 12:14] LABS: ESTIMATED GFR 124 mL/min (>60)
[2021-12-15] MEDS: Dextrose 5%-Lactated Ringers 1,000 ML IV SCH ×2 (12:33→21:52)
[2021-12-15] MEDS: Ondansetron 4 MG/2 ML SDV IVPUSH PRN (12:55)
[2021-12-15] MEDS: Pantoprazole 40 MG Vial IV SCH (12:55)
[2021-12-15] MEDS: Nicotine 14 MG/24 Hr Patch TRDERM SCH (12:56)
[2021-12-15] MEDS ORDERED: MVI, Adult with Vitamin K 10 ML, Thiamine 200 MG, Zinc/Copper/Manganese/Selenium 1 ML i... IV ONE ×4 (16:00)
[2021-12-15] MEDS ORDERED: Cyanocobalamin (Vitamin B12) 1,000 MCG/ML SDV IM ONE (16:00)
[2021-12-15] MEDS ORDERED: Potassium Chloride 20 MEQ in Premix Bag 1 BAG IV ONE (16:00)
[2021-12-15] MEDS ORDERED: QUEtiapine 100 MG Tab PO SCH (21:00)
[2021-12-15] MEDS ORDERED: QUEtiapine 25 MG Tab PO SCH (21:00)
[2021-12-15] MEDS: Zolpidem 5 MG Tab PO PRN (21:16)
[2021-12-15] MEDS: Nortriptyline 25 MG Cap PO SCH (21:16)
[2021-12-16] MEDS: Pantoprazole 40 MG Vial IV SCH ×2 (01:09→11:42)
[2021-12-16] MEDS: ClonazePAM 1 MG Tab PO PRN ×2 (07:33→20:49)
[2021-12-16] MEDS: Dextrose 5%-Lactated Ringers 1,000 ML IV SCH ×2 (07:38→17:16)
[2021-12-16] MEDS ORDERED: Ketamine 500 MG/5 ML MDV IV SCH ×3 (07:45→11:00)
[2021-12-16] MEDS: Nicotine 14 MG/24 Hr Patch TRDERM SCH (08:47)
[2021-12-16] MEDS: DULoxetine 20 MG Cap PO SCH (08:47)
[2021-12-16] MEDS ORDERED: Dexamethasone 4 MG/ML SDV ONE (10:24)
[2021-12-16] MEDS ORDERED: fentaNYL 250 MCG/5 ML SDV ONE (10:24)
[2021-12-16] MEDS ORDERED: Glycopyrrolate 0.2 MG/ML 5 ML MDV ONE (10:24)
[2021-12-16] MEDS ORDERED: Neostigmine Methylsulfate 1 MG/ML 5 ML Syringe ONE (10:24)
[2021-12-16] MEDS ORDERED: Ondansetron 4 MG/2 ML SDV ONE (10:24)
[2021-12-16] MEDS ORDERED: Succinylcholine 200 MG/10 ML MDV ONE (10:24)
[2021-12-16] MEDS ORDERED: Propofol 200 MG/20 ML SDV ONE (10:24)
[2021-12-16] MEDS ORDERED: Rocuronium 50 MG/5 ML Vial ONE (10:24)
[2021-12-16] MEDS ORDERED: Meropenem 500 MG in Sodium Chloride 0.9% 50 ML IV ONE (10:30)
[2021-12-16] MEDS ORDERED: Ketamine 15 MG in Sodium Chloride 0.9% 19.85 ML IV SCH (11:00)
[2021-12-16] MEDS ORDERED: cefOXitin 2 GM in Sodium Chloride 0.9% 50 ML IV ONE (12:00)
[2021-12-16] MEDS ORDERED: Meropenem 500 MG SDV ONE (12:42)
[2021-12-16] MEDS ORDERED: Linezolid 600 MG/300 ML Premix Bag IRR ONE (14:13)
[2021-12-16] MEDS ORDERED: Lidocaine 1% with EPINEPHrine 1:100,000 50 ML MDV ONE (14:30)
[2021-12-16] MEDS ORDERED: Bupivacaine 0.5% 30 ML SDV ONE (14:30)
[2021-12-16] MEDS ORDERED: Lactated Ringers 1,000 ML ONE (14:33)
[2021-12-16] MEDS ORDERED: fentaNYL 100 MCG/2 ML SDV ONE (14:48)
[2021-12-16] MEDS ORDERED: Naloxone 0.4 MG/ML SDV IVPUSH PRN (15:14)
[2021-12-16] MEDS ORDERED: diphenhydrAMINE 25 MG Cap PO PRN (15:14)
[2021-12-16] MEDS ORDERED: diphenhydrAMINE 50 MG/ML SDV IVPUSH PRN ×2 (15:14→18:00)
[2021-12-16] MEDS ORDERED: Ondansetron 4 MG/2 ML SDV IVPUSH PRN ×2 (15:14→18:00)
[2021-12-16] MEDS: HYDROmorphone/Normal Saline 6 MG/30 ML PCA Vial IV PRN ×2 (15:42→20:29)
[2021-12-16] MEDS ORDERED: Labetalol 20 MG/4 ML Syringe IVPUSH PRN (18:00)
[2021-12-16] MEDS ORDERED: MVI, Adult with Vitamin K 10 ML, Thiamine 200 MG, Zinc/Copper/Manganese/Selenium 1 ML i... IV SCH ×4 (18:00)
[2021-12-16] MEDS ORDERED: hydrOXYzine HCL 100 MG/2 ML SDV IM PRN (18:00)
[2021-12-16] MEDS ORDERED: Pantoprazole 40 MG Vial IVPUSH SCH (18:00)
[2021-12-16] MEDS: Ondansetron 4 MG/2 ML SDV IVPUSH PRN (18:22)
[2021-12-16] MEDS: Meropenem 500 MG in Sodium Chloride 0.9% 50 ML IV SCH (20:43)
[2021-12-16] MEDS: Nortriptyline 25 MG Cap PO SCH (20:43)
[2021-12-16] MEDS: Zolpidem 5 MG Tab PO PRN (20:49)
[2021-12-16] MEDS: Acetaminophen 500 MG Tab PO SCH (21:00)
[2021-12-17] MEDS: Cyclobenzaprine 10 MG Tab PO PRN ×2 (01:48→20:04)
[2021-12-17] MEDS: Meropenem 500 MG in Sodium Chloride 0.9% 50 ML IV SCH ×2 (01:48→08:25)
[2021-12-17] MEDS: Acetaminophen 500 MG Tab PO PRN ×2 (01:48→20:03)
[2021-12-17] MEDS ORDERED: Iopamidol 612 MG/ML 50 ML SDV PO ONE (04:00)
[2021-12-17] MEDS: ClonazePAM 1 MG Tab PO PRN ×3 (04:13→23:10)
[2021-12-17] MEDS: Dextrose 5%-Lactated Ringers 1,000 ML IV SCH (04:19)
[2021-12-17] MEDS: Acetaminophen 500 MG Tab PO SCH ×3 (05:17→23:09)
[2021-12-17] MEDS ORDERED: Ondansetron 4 MG Tab.DIS PO PRN (08:04)
[2021-12-17] MEDS ORDERED: Bisacodyl 5 MG Tab PO PRN (08:05)
[2021-12-17] MEDS ORDERED: Dextrose 5%-Lactated Ringers 1,000 ML IV SCH ×2 (08:06→08:15)
[2021-12-17] MEDS: DULoxetine 20 MG Cap PO SCH (08:25)
[2021-12-17] MEDS: Nicotine 14 MG/24 Hr Patch TRDERM SCH (08:25)
[2021-12-17] MEDS: Celecoxib 200 MG Cap PO SCH ×2 (08:26→20:04)
[2021-12-17] MEDS: HYDROmorphone/Normal Saline 6 MG/30 ML PCA Vial IV PRN (08:45)
[2021-12-17] MEDS ORDERED: SCOPOLAMINE PATCH CHECK TOP SCH (09:00)
[2021-12-17] MEDS: Bisacodyl 5 MG Tab PO SCH ×2 (11:09→20:04)
[2021-12-17] MEDS: [UNRECOGNIZED DRUG - OTHER] TOP SCH (11:10)
[2021-12-17] MEDS: Docusate Sodium 100 MG Cap PO SCH ×2 (11:10→20:04)
[2021-12-17] MEDS ORDERED: Pantoprazole 40 MG Vial IVPUSH SCH (11:30)
[2021-12-17] MEDS: HYDROmorphone 2 MG Tab PO PRN ×2 (12:41→18:52)
[2021-12-17] MEDS: Fluconazole 100 MG Tab PO SCH (12:41)
[2021-12-17] MEDS ORDERED: MVI, Adult with Vitamin K 10 ML, Thiamine 200 MG, Zinc/Copper/Manganese/Selenium 1 ML i... IV SCH ×4 (16:00)
[2021-12-17] MEDS: Pantoprazole 40 MG Delayed-Release Granules 1 Packet PO SCH (16:15)
[2021-12-17] MEDS: Zolpidem 5 MG Tab PO PRN (20:03)
[2021-12-17] MEDS: hydrOXYzine HCl 25 MG Tab PO PRN (20:03)
[2021-12-17] MEDS: Nortriptyline 25 MG Cap PO SCH (20:05)
[2021-12-18] MEDS: HYDROmorphone 2 MG Tab PO PRN ×4 (03:29→21:46)
[2021-12-18] MEDS: Cyclobenzaprine 10 MG Tab PO PRN ×3 (03:29→20:08)
[2021-12-18] MEDS: Acetaminophen 500 MG Tab PO SCH ×3 (06:12→23:31)
[2021-12-18] MEDS: ClonazePAM 1 MG Tab PO PRN ×3 (07:31→23:32)
[2021-12-18] MEDS ORDERED: Magnesium Hydroxide 400 MG/5 ML Susp 30 ML Cup PO ONE (08:00)
[2021-12-18] MEDS: Bisacodyl 5 MG Tab PO SCH ×2 (08:03→20:08)
[2021-12-18] MEDS: Docusate Sodium 100 MG Cap PO SCH ×2 (08:03→20:08)
[2021-12-18] MEDS: Celecoxib 200 MG Cap PO SCH ×2 (08:03→20:08)
[2021-12-18] MEDS: hydrOXYzine HCl 25 MG Tab PO PRN ×3 (08:03→23:31)
[2021-12-18] MEDS: DULoxetine 20 MG Cap PO SCH (08:03)
[2021-12-18] MEDS: Fluconazole 100 MG Tab PO SCH (08:04)
[2021-12-18] MEDS: Nicotine 14 MG/24 Hr Patch TRDERM SCH (08:04)
[2021-12-18] MEDS: [UNRECOGNIZED DRUG - OTHER] TOP SCH (08:05)
[2021-12-18] MEDS ORDERED: Cyanocobalamin (Vitamin B12) 1,000 MCG/ML SDV IM ONE (09:00)
[2021-12-18] MEDS ORDERED: Magnesium Hydroxide 400 MG/5 ML Susp 30 ML Cup PO PRN (12:00)
[2021-12-18] MEDS: Pantoprazole 40 MG Delayed-Release Granules 1 Packet PO SCH (16:28)
[2021-12-18] MEDS: Zolpidem 5 MG Tab PO PRN (20:08)
[2021-12-18] MEDS: Nortriptyline 25 MG Cap PO SCH (20:08)
[2021-12-19] MEDS: HYDROmorphone 2 MG Tab PO PRN (04:41)
[2021-12-19] MEDS: Acetaminophen 500 MG Tab PO SCH (05:16)
[2021-12-19 08:11] VITALS: BP 112/79; PULSE 94
[2021-12-19] MEDS: DULoxetine 20 MG Cap PO SCH (08:36)
[2021-12-19] MEDS: Celecoxib 200 MG Cap PO SCH (08:36)
[2021-12-19] MEDS: Fluconazole 100 MG Tab PO SCH (08:37)
[2021-12-19] MEDS: [UNRECOGNIZED DRUG - OTHER] TOP SCH (08:38)
[2021-12-19] MEDS: Nicotine 14 MG/24 Hr Patch TRDERM SCH (08:39)
[2021-12-19] MEDS: Docusate Sodium 100 MG Cap PO SCH (08:39)
[2021-12-19] MEDS: Bisacodyl 5 MG Tab PO SCH (08:39)
[2021-12-19] MEDS: ClonazePAM 1 MG Tab PO PRN (08:47)
[2021-12-22] MEDS ORDERED: ESTRADIOL 0.075 MG/24 HR TOP SCH (13:00)
== END 2021-12-19 09:35 | disposition home or self-care (01) | DRG 330 ==
LOC: JP.MS 10:48
PROVIDERS: ADMIT Physician Assistant Medical; ATTEND Surgery
PROC: 0DT80ZZ Resection of Small Intestine, Open Approach (ICD-10-PCS; principal; 2021-12-16)
PROC: 0D1A0ZA Bypass Jejunum to Jejunum, Open Approach (ICD-10-PCS; 2021-12-16)
PROC: 0WUF0JZ Supplement Abdominal Wall with Synthetic Substitute, Open Approach (ICD-10-PCS; 2021-12-16)
DX: K91.31 Postprocedural partial intestinal obstruction (principal); I47.1 Supraventricular tachycardia; K90.9 Intestinal malabsorption, unspecified; K43.0 Incisional hernia with obstruction, without gangrene; K21.9 Gastro-esophageal reflux disease without esophagitis; F41.9 Anxiety disorder, unspecified; F43.12 Post-traumatic stress disorder, chronic; D51.9 Vitamin B12 deficiency anemia, unspecified; F32.A Depression, unspecified; F17.210 Nicotine dependence, cigarettes, uncomplicated; M79.7 Fibromyalgia; J45.909 Unspecified asthma, uncomplicated; G47.33 Obstructive sleep apnea (adult) (pediatric); Z86.010 Personal history of colon polyps; Z87.19 Personal history of other diseases of the digestive system; Z87.442 Personal history of urinary calculi; Z87.81 Personal history of (healed) traumatic fracture; Z79.899 Other long term (current) drug therapy; Z86.16 Personal history of COVID-19; Z90.3 Acquired absence of stomach [part of]; Z90.49 Acquired absence of other specified parts of digestive tract; Z98.890 Other specified postprocedural states; Z90.89 Acquired absence of other organs; Z90.710 Acquired absence of both cervix and uterus; Z90.722 Acquired absence of ovaries, bilateral; Z90.6 Acquired absence of other parts of urinary tract; Y83.8 Other surgical procedures as the cause of abnormal reaction of the patient, or of later complication, without mention of misadventure at the time of the procedure; Y92.89 Other specified places as the place of occurrence of the external cause
CPT/HCPCS: 36415; 51702; 74240; 74240-26; 80053; 80305-QW; 82306; 82525; 82607; 82728; 82746; 83735; 84100; 84425; 84590; 84630; 85025; 88302; 88307; A9270-GY; C9113; J0171; J0330; J1100; J1170; J2020; J2185; J2405; J2704; J2710; J2795; J3010; J3411; J3420; J3480; J3490; J7120; J7121; Q9967; U0002

== ENCOUNTER 2022-01-09 18:42 | Emergency (ER) | payer MEDICAID ==
[2022-01-09] MEDS ORDERED: Acetaminophen/HYDROcodone 325-5 MG Tab PO ONE (21:12)
[2022-01-09 21:59] VITALS: BP 91/55; PULSE 66
== END 2022-01-09 22:16 | disposition home or self-care (01) ==
LOC: JP.ED 18:42
DX: S39.011A Strain of muscle, fascia and tendon of abdomen, initial encounter (principal); K21.9 Gastro-esophageal reflux disease without esophagitis; F17.210 Nicotine dependence, cigarettes, uncomplicated; Z88.0 Allergy status to penicillin; Z88.5 Allergy status to narcotic agent; Z88.1 Allergy status to other antibiotic agents; Z88.4 Allergy status to anesthetic agent; Z79.899 Other long term (current) drug therapy; Z86.16 Personal history of COVID-19; W17.89XA Other fall from one level to another, initial encounter; Y92.009 Unspecified place in unspecified non-institutional (private) residence as the place of occurrence of the external cause
CPT/HCPCS: 36415; 74019; 85025; 86140; 99283; A9270

== ENCOUNTER 2022-03-20 08:15 | Day surgery (SDC) | payer MEDICAID ==
[2022-03-20] MEDS ORDERED: Lactated Ringers 1,000 ML IV ONE (09:00)
[2022-03-20] MEDS ORDERED: Cyanocobalamin (Vitamin B12) 1,000 MCG/ML SDV IM ONE (09:30)
[2022-03-20] MEDS ORDERED: Glycopyrrolate 0.2 MG/ML 2 ML SDV IVPUSH ONE (09:30)
[2022-03-20] MEDS ORDERED: MVI, Adult with Vitamin K 10 ML, Thiamine 200 MG, Zinc/Copper/Manganese/Selenium 1 ML i... IV ONE ×4 (10:00)
[2022-03-20 12:19] VITALS: BP 103/65; PULSE 68
== END 2022-03-20 12:28 | disposition home or self-care (01) ==
LOC: JP.SDS 08:15
PROVIDERS: ATTEND Surgery
DX: R13.10 Dysphagia, unspecified (principal); G47.33 Obstructive sleep apnea (adult) (pediatric); E78.5 Hyperlipidemia, unspecified; K21.9 Gastro-esophageal reflux disease without esophagitis; Z88.8 Allergy status to other drugs, medicaments and biological substances; Z79.899 Other long term (current) drug therapy; Z88.1 Allergy status to other antibiotic agents; Z88.0 Allergy status to penicillin; Z88.4 Allergy status to anesthetic agent; Z88.6 Allergy status to analgesic agent
CPT/HCPCS: 43425; C1726; J2250; J2704; J3010; J3411; J3420; J3490; J7120

== ENCOUNTER 2022-08-01 07:24 | Day surgery (SDC) | payer MEDICAID ==
[2022-08-01] MEDS ORDERED: Dextrose 5%-Lactated Ringers 1,000 ML IV SCH (08:00)
[2022-08-01] MEDS ORDERED: Cyanocobalamin (Vitamin B12) 1,000 MCG/ML SDV IM ONE (08:43)
[2022-08-01 10:45] VITALS: BP 110/77; PULSE 78
== END 2022-08-01 11:04 | disposition home or self-care (01) ==
LOC: JP.SDS 07:24
PROVIDERS: ATTEND Surgery
DX: K91.89 Other postprocedural complications and disorders of digestive system (principal); R13.10 Dysphagia, unspecified; J45.909 Unspecified asthma, uncomplicated; K21.9 Gastro-esophageal reflux disease without esophagitis; F43.10 Post-traumatic stress disorder, unspecified; Z90.49 Acquired absence of other specified parts of digestive tract; Z98.0 Intestinal bypass and anastomosis status
CPT/HCPCS: J2250; J2704; J3010; J3420; J7121

== ENCOUNTER 2022-08-07 05:13 | Day surgery (SDC) | payer MEDICAID ==
[2022-08-07] MEDS: Gabapentin 100 MG Cap PO ONE ×2 (06:11→15:23)
[2022-08-07] MEDS ORDERED: Albuterol/Ipratropium 3.0-0.5 MG/3 ML Neb Soln NEB ONE (06:30)
[2022-08-07] MEDS ORDERED: Meropenem 500 MG SDV ONE (06:37)
[2022-08-07] MEDS ORDERED: Bupivacaine 0.5%/EPINEPHrine 1:200,000 50 ML MDV ONE (06:37)
[2022-08-07] MEDS ORDERED: fentaNYL 250 MCG/5 ML SDV ONE ×2 (06:57→07:45)
[2022-08-07] MEDS ORDERED: Rocuronium 50 MG/5 ML Vial ONE (06:58)
[2022-08-07] MEDS ORDERED: Neostigmine Methylsulfate 1 MG/ML 5 ML Syringe ONE (06:58)
[2022-08-07] MEDS ORDERED: Ondansetron 4 MG/2 ML SDV ONE (06:58)
[2022-08-07] MEDS ORDERED: Glycopyrrolate 0.2 MG/ML 5 ML MDV ONE (06:58)
[2022-08-07] MEDS ORDERED: Dexamethasone 4 MG/ML SDV ONE (06:58)
[2022-08-07] MEDS ORDERED: Propofol 200 MG/20 ML SDV ONE (06:58)
[2022-08-07] MEDS ORDERED: Succinylcholine 200 MG/10 ML MDV ONE (06:58)
[2022-08-07] MEDS ORDERED: Ketamine 15 MG in Sodium Chloride 0.9% 19.85 ML IV SCH (07:30)
[2022-08-07] MEDS ORDERED: Linezolid 600 MG in Premix Bag 1 BAG IV ONE (07:30)
[2022-08-07] MEDS ORDERED: Dextrose 5%-Lactated Ringers 1,000 ML IV SCH (07:30)
[2022-08-07] MEDS ORDERED: Ketamine 500 MG/5 ML MDV IV SCH (07:30)
[2022-08-07] MEDS ORDERED: Scopolamine 1.5 MG Transdermal Patch ONE (07:42)
[2022-08-07] MEDS ORDERED: Linezolid 600 MG/300 ML Premix Bag ONE (08:10)
[2022-08-07] MEDS ORDERED: Cyclobenzaprine 10 MG Tab PO PRN (09:33)
[2022-08-07] MEDS ORDERED: hydrOXYzine HCl 50 MG/ML SDV IM PRN (10:00)
[2022-08-07] MEDS ORDERED: Labetalol 20 MG/4 ML Syringe IVPUSH PRN (10:00)
[2022-08-07] MEDS ORDERED: Acetaminophen 500 MG Tab PO PRN (10:00)
[2022-08-07] MEDS ORDERED: Albuterol/Ipratropium 3.0-0.5 MG/3 ML Neb Soln INH PRN (10:00)
[2022-08-07] MEDS ORDERED: HYDROmorphone 0.5 MG/0.5 ML Syringe IVPUSH PRN (10:00)
[2022-08-07] MEDS ORDERED: HYDROmorphone 1 MG/ML Syringe IV PRN (10:00)
[2022-08-07] MEDS ORDERED: Ondansetron 4 MG/2 ML SDV IVPUSH PRN (10:00)
[2022-08-07] MEDS ORDERED: diphenhydrAMINE 50 MG/ML SDV IVPUSH PRN (10:00)
[2022-08-07] MEDS: Albuterol/Ipratropium 3.0-0.5 MG/3 ML Neb Soln INH SCH ×3 (10:33→21:15)
[2022-08-07] MEDS: Dextrose 5%-Lactated Ringers 1,000 ML IV SCH (10:51)
[2022-08-07] MEDS: traMADol 50 MG Tab PO PRN ×2 (10:51→18:42)
[2022-08-07] MEDS ORDERED: Pantoprazole 40 MG Vial IVPUSH SCH (11:00)
[2022-08-07] MEDS ORDERED: Sodium Ferric Gluconate Cmplex 250 MG in Sodium Chloride 0.9% 100 ML IV SCH (12:00)
[2022-08-07] MEDS ORDERED: Metoclopramide 10 MG/2 ML SDV IVPUSH PRN (12:33)
[2022-08-07] MEDS: Acetaminophen 500 MG Tab PO SCH ×2 (14:14→21:15)
[2022-08-07] MEDS: ClonazePAM 1 MG Tab PO PRN (15:05)
[2022-08-07] MEDS: oxyCODONE 5 MG Tab PO PRN ×2 (15:40→21:15)
[2022-08-07] MEDS ORDERED: MVI, Adult with Vitamin K 10 ML, Thiamine 200 MG, Zinc/Copper/Manganese/Selenium 1 ML i... IV SCH ×4 (16:00)
[2022-08-07] MEDS: Heparin Sodium 5,000 Units/ML Vial SUBCUT SCH (19:29)
[2022-08-07] MEDS: Linezolid 600 MG in Premix Bag 1 BAG IV SCH (19:29)
[2022-08-07] MEDS ORDERED: Nortriptyline 25 MG Cap PO SCH (21:00)
[2022-08-07] MEDS ORDERED: QUETIAPINE PO SCH ×2 (21:00)
[2022-08-07] MEDS ORDERED: Melatonin 3 MG Tab PO PRN (21:19)
[2022-08-08] MEDS: Dextrose 5%-Lactated Ringers 1,000 ML IV SCH (01:21)
[2022-08-08] MEDS: traMADol 50 MG Tab PO PRN (01:24)
[2022-08-08] MEDS: ClonazePAM 1 MG Tab PO PRN (01:25)
[2022-08-08] MEDS: oxyCODONE 5 MG Tab PO PRN ×2 (03:13→09:16)
[2022-08-08] MEDS: Acetaminophen 500 MG Tab PO SCH (06:01)
[2022-08-08] MEDS: Linezolid 600 MG in Premix Bag 1 BAG IV SCH (06:02)
[2022-08-08 07:16] VITALS: BP 110/72; PULSE 69
[2022-08-08] MEDS: Albuterol/Ipratropium 3.0-0.5 MG/3 ML Neb Soln INH SCH (07:25)
[2022-08-08] MEDS: Heparin Sodium 5,000 Units/ML Vial SUBCUT SCH (08:57)
[2022-08-08] MEDS ORDERED: DULoxetine 20 MG Cap PO SCH (09:00)
[2022-08-08] MEDS ORDERED: SCOPOLAMINE PATCH CHECK TOP SCH (09:00)
[2022-08-08] MEDS ORDERED: ESTRADIOL 0.075 MG/24 HR TOP SCH (12:00)
[2022-08-09] MEDS ORDERED: Cyanocobalamin (Vitamin B12) 1,000 MCG/ML SDV IM ONE (09:00)
== END 2022-08-08 09:37 | disposition home or self-care (01) ==
LOC: JP.SDS 05:13 → UNDOADMIN 09:00 → JP.2SS 09:00 → JP.SDS 08-08 09:37 → UNDODISIN 08-08 09:37
PROVIDERS: ATTEND Surgery
DX: K43.0 Incisional hernia with obstruction, without gangrene (principal); K42.0 Umbilical hernia with obstruction, without gangrene; F43.10 Post-traumatic stress disorder, unspecified; E28.2 Polycystic ovarian syndrome; K21.9 Gastro-esophageal reflux disease without esophagitis; G47.33 Obstructive sleep apnea (adult) (pediatric); F41.1 Generalized anxiety disorder; G47.00 Insomnia, unspecified; M79.7 Fibromyalgia; F33.1 Major depressive disorder, recurrent, moderate; F17.210 Nicotine dependence, cigarettes, uncomplicated; Z98.84 Bariatric surgery status; Z90.710 Acquired absence of both cervix and uterus; Z79.899 Other long term (current) drug therapy; Z88.0 Allergy status to penicillin; Z88.1 Allergy status to other antibiotic agents; Z88.8 Allergy status to other drugs, medicaments and biological substances; Z91.030 Bee allergy status
CPT/HCPCS: 49594; 94640; A9270; C1781; C9113; J0171; J0330; J1100; J1200; J1644; J2020; J2185; J2405; J2704; J2710; J2795; J2916; J3010; J3411; J3490; J7121; J7620

== ENCOUNTER 2022-10-24 07:40 | Day surgery (SDC) | payer MEDICAID ==
[~2022-10-24 07:40] MED LIST changes: +Cyanocobalamin (Vitamin B12) 1,000 MCG/ML SDV IM ONE; -Midazolam 1 MG/ML 2 ML SDV ONE; -Propofol 200 MG/20 ML SDV ONE; -fentaNYL 100 MCG/2 ML SDV ONE
[2022-10-24] MEDS ORDERED: Lactated Ringers 1,000 ML IV ONE (08:30)
[2022-10-24] MEDS ORDERED: Midazolam 1 MG/ML 2 ML SDV ONE (08:42)
[2022-10-24] MEDS ORDERED: fentaNYL 50 MCG/ML SDV ONE (08:43)
[2022-10-24] MEDS ORDERED: Propofol 200 MG/20 ML SDV ONE (08:43)
[2022-10-24] MEDS ORDERED: Glycopyrrolate 0.2 MG/ML 2 ML SDV IVPUSH ONE (09:00)
[2022-10-24] MEDS ORDERED: MVI, Adult with Vitamin K 10 ML, Thiamine 200 MG, Zinc/Copper/Manganese/Selenium 1 ML i... IV ONE ×4 (09:30)
[2022-10-24 11:26] VITALS: BP 107/68; PULSE 85
== END 2022-10-24 11:50 | disposition home or self-care (01) ==
LOC: JP.SDS 07:40
PROVIDERS: ATTEND Surgery
DX: R13.10 Dysphagia, unspecified (principal); K21.9 Gastro-esophageal reflux disease without esophagitis; J45.909 Unspecified asthma, uncomplicated; F43.10 Post-traumatic stress disorder, unspecified; F41.1 Generalized anxiety disorder; K31.84 Gastroparesis; M79.7 Fibromyalgia; K58.9 Irritable bowel syndrome, unspecified; Z98.0 Intestinal bypass and anastomosis status; Z90.49 Acquired absence of other specified parts of digestive tract; Z98.890 Other specified postprocedural states; Z88.1 Allergy status to other antibiotic agents; Z88.0 Allergy status to penicillin; Z91.041 Radiographic dye allergy status
CPT/HCPCS: 43235; J2250; J2704; J3010; J3411; J3420; J3490; J7120

== ENCOUNTER 2022-11-21 08:59 | Day surgery (SDC) | payer MEDICAID ==
[~2022-11-21 08:59] MED LIST changes: +Bupivacaine 0.5% 50 ML MDV ONE; -Cyanocobalamin (Vitamin B12) 1,000 MCG/ML SDV IM ONE; +Dexamethasone 4 MG/ML SDV ONE; +Lidocaine 1% with EPINEPHrine 1:100,000 50 ML MDV ONE; +Meropenem 500 MG SDV ONE; +Midazolam 1 MG/ML 2 ML SDV ONE; +Ondansetron 4 MG/2 ML SDV ONE; +Propofol 200 MG/20 ML SDV ONE; +Rocuronium 50 MG/5 ML Vial ONE; +fentaNYL 250 MCG/5 ML SDV ONE
[2022-11-21] MEDS ORDERED: Dextrose 5%-Lactated Ringers 1,000 ML IV SCH (09:30)
[2022-11-21 09:47] LABS: BASOPHILS ABSOLUTE AUTO 0.03 K/uL (0.00-0.10); BASOPHILS PERCENT AUTO 0.6 % (0.1-1.3); EOSINOPHILS ABSOLUTE AUTO 0.18 K/uL (0.00-0.40); EOSINOPHILS PERCENT AUTO 3.4 % (0.0-5.4); HEMATOCRIT 32.1 % (34.3-46.0); HEMOGLOBIN 10.9 g/dL (11.2-15.5); IMMATURE GRAN PERCENT AUTO 0.2 % (0.0-0.7); LYMPHOCYTES ABSOLUTE AUTO 1.31 K/uL (0.8-3.3); LYMPHOCYTES PERCENT AUTO 24.4 % (11.4-47.7); MEAN CORPUSCULAR HEMOGLOBIN 31.6 pg (31.6-35.5); MONOCYTES ABSOLUTE AUTO 0.66 K/uL (0.20-0.90); MONOCYTES PERCENT AUTO 12.3 % (3.3-12.6); NEUTROPHILS ABSOLUTE AUTO 3.17 K/uL (1.0-7.6); NEUTROPHILS PERCENT AUTO 59.1 % (40.0-78.1); PLATELET COUNT,PLT 208 K/uL (130-375); RED BLOOD CELL COUNT 3.45 M/uL (3.77-5.24); WHITE BLOOD CELL COUNT,WBC 5.4 K/uL (3.2-11.0)
[2022-11-21 09:49] LABS: IMMATURE GRAN ABSOLUTE AUTO 0.01 K/uL (0.00-0.23)
[2022-11-21 10:19] LABS: ALANINE AMINOTRANSFERASE,ALT 17 U/L (12-78); ALBUMIN 3.3 g/dL (3.4-5.0); ALKALINE PHOSPHATASE 160 U/L (46-116); ASPARTATE AMNIOTRANSFERASE,AST 15 U/L (15-37); BILIRUBIN TOTAL 0.4 mg/dL (0.2-1.0); BLOOD UREA NITROGEN,BUN 14 mg/dL (7-18); CALCIUM 8.8 mg/dL (8.5-10.1); CARBON DIOXIDE,CO2 27 mmol/L (21-32); CHLORIDE,CL 104 mmol/L (100-108); CREATININE 0.6 mg/dL (0.6-1.0); EST CRCL DRUG DOSING (CG) 107.45 mL/min; ESTIMATED GFR 123 mL/min (>60); FERRITIN 27 ng/ml (8-388); GLUCOSE RANDOM 80 mg/dL (74-106); PHOSPHORUS 3.1 mg/dL (2.5-4.9); POTASSIUM,K 3.7 mmol/L (3.6-5.2); PROTEIN TOTAL,TP 6.5 g/dL (6.4-8.2); SODIUM,NA 136 mmol/L (140-148)
[2022-11-21 10:23] LABS: ANION GAP 8.7 mmol/L (5.0-14.0)
[2022-11-21] MEDS ORDERED: Clindamycin Phosphate in D5W 900 MG in Premix Bag 1 BAG IV ONE ×2 (10:30)
[2022-11-21] MEDS ORDERED: Ketamine 15 MG in Sodium Chloride 0.9% 19.85 ML IV SCH (10:45)
[2022-11-21] MEDS ORDERED: Ketamine 500 MG/5 ML MDV IV SCH (10:45)
[2022-11-21] MEDS ORDERED: Glycopyrrolate 0.2 MG/ML 5 ML MDV ONE (11:35)
[2022-11-21] MEDS ORDERED: Sugammadex Sodium 200 MG/2 ML VIAL ONE (12:13)
[2022-11-21] MEDS ORDERED: Acetaminophen 325 MG Tab PO PRN (13:16)
[2022-11-21] MEDS ORDERED: traMADol 50 MG Tab PO PRN (13:17)
[2022-11-21 14:22] VITALS: BP 101/63; PULSE 72
== END 2022-11-21 14:31 | disposition home or self-care (01) ==
LOC: JP.SDS 08:59
PROVIDERS: ATTEND Surgery
DX: K43.0 Incisional hernia with obstruction, without gangrene (principal); D17.79 Benign lipomatous neoplasm of other sites; F41.1 Generalized anxiety disorder; K21.9 Gastro-esophageal reflux disease without esophagitis; M79.7 Fibromyalgia; G47.00 Insomnia, unspecified; F33.1 Major depressive disorder, recurrent, moderate; G47.33 Obstructive sleep apnea (adult) (pediatric); K75.81 Nonalcoholic steatohepatitis (NASH); F43.12 Post-traumatic stress disorder, chronic; J45.30 Mild persistent asthma, uncomplicated; F11.91 Opioid use, unspecified, in remission; F17.210 Nicotine dependence, cigarettes, uncomplicated; Z98.890 Other specified postprocedural states; Z79.899 Other long term (current) drug therapy; Z88.0 Allergy status to penicillin; Z88.1 Allergy status to other antibiotic agents; Z88.8 Allergy status to other drugs, medicaments and biological substances; Z91.041 Radiographic dye allergy status; Z91.018 Allergy to other foods; Z87.11 Personal history of peptic ulcer disease
CPT/HCPCS: 36415; 49614; 80053; 82728; 83735; 84100; 85025; 88302; 88304; A9270; J0171; J1100; J2185; J2250; J2405; J2704; J2795; J3010; J3490; J7121; J2020

== ENCOUNTER 2022-11-22 07:02 | Emergency (ER) | payer MEDICAID ==
[2022-11-22 07:51] VITALS: BP 107/67; PULSE 61
[2022-11-22] MEDS ORDERED: fentaNYL 100 MCG/2 ML SDV IM ONE (08:01)
== END 2022-11-22 08:30 | disposition home or self-care (01) ==
LOC: JP.ED 07:02
DX: G89.18 Other acute postprocedural pain (principal); Z91.030 Bee allergy status; Z88.0 Allergy status to penicillin; Z91.041 Radiographic dye allergy status; Z88.4 Allergy status to anesthetic agent; Z88.1 Allergy status to other antibiotic agents; Z88.8 Allergy status to other drugs, medicaments and biological substances; Z79.899 Other long term (current) drug therapy; Z86.16 Personal history of COVID-19; Z72.0 Tobacco use
CPT/HCPCS: 96372; 99283; J3010

== ENCOUNTER 2022-12-13 12:33 | Emergency (ER) | payer MEDICAID ==
[2022-12-13 13:57] LABS: BASOPHILS ABSOLUTE AUTO 0.04 K/uL (0.00-0.10); BASOPHILS PERCENT AUTO 0.6 % (0.1-1.3); EOSINOPHILS ABSOLUTE AUTO 0.22 K/uL (0.00-0.40); EOSINOPHILS PERCENT AUTO 3.1 % (0.0-5.4); HEMATOCRIT 35.2 % (34.3-46.0); IMMATURE GRAN PERCENT AUTO 0.3 % (0.0-0.7); LYMPHOCYTES ABSOLUTE AUTO 1.83 K/uL (0.8-3.3); LYMPHOCYTES PERCENT AUTO 25.7 % (11.4-47.7); MEAN CORPUSCULAR HEMOGLOBIN 31.7 pg (31.6-35.5); MEAN CORPUSCULAR HGB CONC 34.1 g/dL (31.6-35.5); MEAN CORPUSCULAR VOLUME 93.1 fL (81.4-99.0); MONOCYTES ABSOLUTE AUTO 0.68 K/uL (0.20-0.90); MONOCYTES PERCENT AUTO 9.5 % (3.3-12.6); NEUTROPHILS ABSOLUTE AUTO 4.34 K/uL (1.0-7.6); NEUTROPHILS PERCENT AUTO 60.8 % (40.0-78.1); PLATELET COUNT,PLT 224 K/uL (130-375); RED BLOOD CELL COUNT 3.78 M/uL (3.77-5.24); WHITE BLOOD CELL COUNT,WBC 7.1 K/uL (3.2-11.0)
[2022-12-13 13:58] LABS: IMMATURE GRAN ABSOLUTE AUTO 0.02 K/uL (0.00-0.23)
[2022-12-13 14:17] LABS: A/G RATIO 1.1 (1.2-2.2); ALANINE AMINOTRANSFERASE,ALT 26 U/L (12-78); ALBUMIN 3.6 g/dL (3.4-5.0); ALKALINE PHOSPHATASE 182 U/L (46-116); ANION GAP 10.2 mmol/L (5.0-14.0); ASPARTATE AMNIOTRANSFERASE,AST 16 U/L (15-37); BILIRUBIN TOTAL 0.2 mg/dL (0.2-1.0); BLOOD UREA NITROGEN,BUN 15 mg/dL (7-18); C-REACTIVE PROTEIN < 0.05 mg/dL (0.0-0.3); CALCIUM 9.1 mg/dL (8.5-10.1); CARBON DIOXIDE,CO2 26 mmol/L (21-32); CHLORIDE,CL 104 mmol/L (100-108); CREATININE 0.6 mg/dL (0.6-1.0); EST CRCL DRUG DOSING (CG) 111.15 mL/min; ESTIMATED GFR 123 mL/min (>60); GLUCOSE RANDOM 82 mg/dL (74-106); POTASSIUM,K 4.2 mmol/L (3.6-5.2); PROTEIN TOTAL,TP 6.8 g/dL (6.4-8.2); SODIUM,NA 136 mmol/L (140-148)
[2022-12-13 15:22] VITALS: BP 99/60; PULSE 76
== END 2022-12-13 15:41 | disposition home or self-care (01) ==
LOC: JP.ED 12:33
DX: K52.9 Noninfective gastroenteritis and colitis, unspecified (principal); F17.210 Nicotine dependence, cigarettes, uncomplicated; Z86.16 Personal history of COVID-19; Z88.0 Allergy status to penicillin; Z88.1 Allergy status to other antibiotic agents; Z91.030 Bee allergy status; Z88.6 Allergy status to analgesic agent; Z88.8 Allergy status to other drugs, medicaments and biological substances; Z79.899 Other long term (current) drug therapy
CPT/HCPCS: 36415; 80053; 83690; 85025; 86140; 99284

== ENCOUNTER 2022-12-20 20:40 | Emergency (ER) | payer MEDICAID | END 2022-12-20 21:40 | disposition left against medical advice (07) | LOC: JP.ED 20:40 | DX: Z53.21 Procedure and treatment not carried out due to patient leaving prior to being seen by health care provider (principal) ==

== ENCOUNTER 2023-01-11 18:19 | Emergency (ER) | payer MEDICAID ==
[2023-01-11] MEDS ORDERED: diphenhydrAMINE 25 MG Cap PO ONE (18:46)
[2023-01-11] MEDS ORDERED: EPINEPHrine 1 MG/ML SDV IM ONE (18:47)
[2023-01-11] MEDS ORDERED: predniSONE 20 MG Tab PO ONE (18:47)
[2023-01-11 19:47] VITALS: BP 94/62; PULSE 58
== END 2023-01-11 20:16 | disposition home or self-care (01) ==
LOC: JP.ED 18:19
DX: L50.9 Urticaria, unspecified (principal); F17.210 Nicotine dependence, cigarettes, uncomplicated; Z91.030 Bee allergy status; Z88.0 Allergy status to penicillin; Z91.041 Radiographic dye allergy status; Z88.1 Allergy status to other antibiotic agents; Z88.8 Allergy status to other drugs, medicaments and biological substances; Z86.16 Personal history of COVID-19
CPT/HCPCS: 99282; A9270; J7512

== ENCOUNTER 2023-02-20 07:53 | Inpatient (IN) | payer MEDICAID ==
[~2023-02-20 07:53] MED LIST changes: +Glycopyrrolate 0.2 MG/ML 5 ML MDV ONE; -Midazolam 1 MG/ML 2 ML SDV ONE; +Neostigmine Methylsulfate 1 MG/ML 5 ML Syringe ONE; +Succinylcholine 200 MG/10 ML MDV ONE
[2023-02-20] MEDS ORDERED: Meropenem 500 MG in Sodium Chloride 0.9% 50 ML IV ONE (08:30)
[2023-02-20] MEDS ORDERED: Scopolamine 1.5 MG Transdermal Patch TRDERM ONE (08:30)
[2023-02-20] MEDS ORDERED: Albuterol/Ipratropium 3.0-0.5 MG/3 ML Neb Soln NEB ONE (08:30)
[2023-02-20] MEDS ORDERED: Celecoxib 200 MG Cap PO ONE (08:30)
[2023-02-20] MEDS ORDERED: Dextrose 5%-Lactated Ringers 1,000 ML IV SCH (08:30)
[2023-02-20 08:34] LABS: HEMATOCRIT 34.8 % (34.3-46.0); MEAN CORPUSCULAR HEMOGLOBIN 31.1 pg (31.6-35.5); MEAN CORPUSCULAR HGB CONC 34.5 g/dL (31.6-35.5); MEAN CORPUSCULAR VOLUME 90.2 fL (81.4-99.0); RED BLOOD CELL COUNT 3.86 M/uL (3.77-5.24); WHITE BLOOD CELL COUNT,WBC 5.5 K/uL (3.2-11.0)
[2023-02-20 09:09] LABS: A/G RATIO 1.2 (1.2-2.2); ALANINE AMINOTRANSFERASE,ALT 25 U/L (12-78); ALBUMIN 3.7 g/dL (3.4-5.0); ALKALINE PHOSPHATASE 186 U/L (46-116); ASPARTATE AMNIOTRANSFERASE,AST 15 U/L (15-37); BILIRUBIN TOTAL 0.5 mg/dL (0.2-1.0); BLOOD UREA NITROGEN,BUN 13 mg/dL (7-18); CALCIUM 8.6 mg/dL (8.5-10.1); CARBON DIOXIDE,CO2 28 mmol/L (21-32); CHLORIDE,CL 103 mmol/L (100-108); CREATININE 0.6 mg/dL (0.6-1.0); EST CRCL DRUG DOSING (CG) 107.45 mL/min; ESTIMATED GFR 123 mL/min (>60); FERRITIN 23 ng/ml (8-388); GLUCOSE RANDOM 82 mg/dL (74-106); MAGNESIUM 2.1 mg/dL (1.8-2.4); PHOSPHORUS 3.5 mg/dL (2.5-4.9); POTASSIUM,K 3.5 mmol/L (3.6-5.2); PRO B-TYPE NATRIUR PEPT,BNPPRO 28 pg/mL (5-125); PROTEIN TOTAL,TP 6.9 g/dL (6.4-8.2); SODIUM,NA 138 mmol/L (140-148)
[2023-02-20 09:25] LABS: ANION GAP 10.5 mmol/L (5.0-14.0)
[2023-02-20] MEDS ORDERED: Ropivacaine 28 ML, dexAMETHasone 8 MG, EPINEPHrine 0.4 MG, Sodium Chloride 0.9% 49.6 ML NERVRT SCH ×4 (09:45)
[2023-02-20] MEDS ORDERED: Ketamine 15 MG in Sodium Chloride 0.9% 19.85 ML IV SCH (09:45)
[2023-02-20] MEDS ORDERED: Ketamine 500 MG/5 ML MDV IV SCH (09:45)
[2023-02-20] MEDS ORDERED: Naloxone 0.4 MG/ML SDV IVPUSH PRN (09:52)
[2023-02-20] MEDS ORDERED: diphenhydrAMINE 25 MG Cap PO PRN (09:52)
[2023-02-20] MEDS ORDERED: diphenhydrAMINE 50 MG/ML SDV IVPUSH PRN (09:52)
[2023-02-20] MEDS ORDERED: Ondansetron 4 MG/2 ML SDV IVPUSH PRN ×2 (09:52→13:00)
[2023-02-20] MEDS: HYDROmorphone/Normal Saline 6 MG/30 ML PCA Vial IV PRN ×3 (10:08→23:59)
[2023-02-20] MEDS ORDERED: Linezolid 600 MG/300 ML Premix Bag IRR ONE (11:09)
[2023-02-20] MEDS ORDERED: Cyclobenzaprine 10 MG Tab PO PRN (12:48)
[2023-02-20] MEDS: Dextrose 5%-Lactated Ringers 1,000 ML IV SCH ×2 (12:53→22:23)
[2023-02-20] MEDS ORDERED: Acetaminophen 500 MG Tab PO PRN (13:00)
[2023-02-20] MEDS ORDERED: Albuterol/Ipratropium 3.0-0.5 MG/3 ML Neb Soln INH PRN (13:00)
[2023-02-20] MEDS ORDERED: Naloxone 0.4 MG/ML SDV IV PRN (13:00)
[2023-02-20] MEDS ORDERED: hydrOXYzine HCL 100 MG/2 ML SDV IM PRN (13:00)
[2023-02-20] MEDS ORDERED: Labetalol 20 MG/4 ML Syringe IVPUSH PRN (13:00)
[2023-02-20] MEDS ORDERED: Pantoprazole 40 MG Vial IVPUSH SCH (14:00)
[2023-02-20] MEDS: Albuterol/Ipratropium 3.0-0.5 MG/3 ML Neb Soln INH SCH ×2 (14:22→20:10)
[2023-02-20] MEDS: Sodium Ferric Gluconate Cmplex 250 MG in Sodium Chloride 0.9% 100 ML IV SCH (14:24)
[2023-02-20] MEDS: Acetaminophen 1,000 MG in Premix Bag 1 BAG IV SCH ×2 (14:27→22:27)
[2023-02-20] MEDS: busPIRone 5 MG Tab PO SCH ×2 (14:38→20:07)
[2023-02-20] MEDS: Meropenem 500 MG in Sodium Chloride 0.9% 50 ML IV SCH ×2 (15:25→20:06)
[2023-02-20] MEDS: MVI, Adult with Vitamin K 10 ML, Thiamine 200 MG, Zinc/Copper/Manganese/Selenium 1 ML i... IV SCH ×4 (15:25)
[2023-02-20] MEDS: traZODone 50 MG Tab PO SCH (20:06)
[2023-02-20] MEDS: Nicotine 14 MG/24 Hr Patch TRDERM SCH (20:07)
[2023-02-20] MEDS: QUEtiapine 25 MG Tab PO SCH (20:08)
[2023-02-20] MEDS ORDERED: QUEtiapine 100 MG Tab PO SCH (21:00)
[2023-02-21] MEDS: diphenhydrAMINE 50 MG/ML SDV IVPUSH PRN ×4 (01:02→20:32)
[2023-02-21] MEDS: Meropenem 500 MG in Sodium Chloride 0.9% 50 ML IV SCH ×2 (02:36→09:32)
[2023-02-21] MEDS ORDERED: Iopamidol 612 MG/ML 30 ML SDV PO ONE (04:10)
[2023-02-21 05:18] LABS: BASOPHILS PERCENT AUTO 0.1 % (0.1-1.3); HEMATOCRIT 32.2 % (34.3-46.0); HEMOGLOBIN 10.8 g/dL (11.2-15.5); IMMATURE GRAN ABSOLUTE AUTO 0.09 K/uL (0.00-0.23); IMMATURE GRAN PERCENT AUTO 0.5 % (0.0-0.7); LYMPHOCYTES ABSOLUTE AUTO 0.86 K/uL (0.8-3.3); LYMPHOCYTES PERCENT AUTO 4.7 % (11.4-47.7); MEAN CORPUSCULAR HEMOGLOBIN 30.9 pg (31.6-35.5); MEAN CORPUSCULAR HGB CONC 33.5 g/dL (31.6-35.5); MONOCYTES ABSOLUTE AUTO 1.88 K/uL (0.20-0.90); MONOCYTES PERCENT AUTO 10.4 % (3.3-12.6); NEUTROPHILS PERCENT AUTO 84.3 % (40.0-78.1); PLATELET COUNT,PLT 219 K/uL (130-375); WHITE BLOOD CELL COUNT,WBC 18.2 K/uL (3.2-11.0)
[2023-02-21 05:20] LABS: BASOPHILS ABSOLUTE AUTO 0.02 K/uL (0.00-0.10)
[2023-02-21] MEDS: Acetaminophen 1,000 MG in Premix Bag 1 BAG IV SCH (05:31)
[2023-02-21] MEDS: Dextrose 5%-Lactated Ringers 1,000 ML IV SCH (05:33)
[2023-02-21 05:37] LABS: A/G RATIO 0.9 (1.2-2.2); ALANINE AMINOTRANSFERASE,ALT 73 U/L (12-78); ALBUMIN 3.1 g/dL (3.4-5.0); ALKALINE PHOSPHATASE 162 U/L (46-116); ANION GAP 7.5 mmol/L (5.0-14.0); ASPARTATE AMNIOTRANSFERASE,AST 63 U/L (15-37); BILIRUBIN TOTAL 0.3 mg/dL (0.2-1.0); BLOOD UREA NITROGEN,BUN 4 mg/dL (7-18); CARBON DIOXIDE,CO2 30 mmol/L (21-32); CHLORIDE,CL 105 mmol/L (100-108); CREATININE 0.7 mg/dL (0.6-1.0); ESTIMATED GFR 119 mL/min (>60); GLUCOSE RANDOM 127 mg/dL (74-106); MAGNESIUM 1.9 mg/dL (1.8-2.4); PHOSPHORUS 3.8 mg/dL (2.5-4.9); POTASSIUM,K 4.2 mmol/L (3.6-5.2); PROTEIN TOTAL,TP 6.5 g/dL (6.4-8.2); SODIUM,NA 142 mmol/L (140-148)
[2023-02-21] MEDS: Albuterol/Ipratropium 3.0-0.5 MG/3 ML Neb Soln INH SCH ×4 (07:17→20:32)
[2023-02-21] MEDS ORDERED: Ondansetron 4 MG Tab.DIS PO PRN (08:14)
[2023-02-21] MEDS: busPIRone 5 MG Tab PO SCH ×3 (09:09→20:33)
[2023-02-21] MEDS: Celecoxib 200 MG Cap PO SCH ×2 (09:10→20:33)
[2023-02-21] MEDS: Docusate Sodium 100 MG Cap PO SCH ×2 (09:10→20:35)
[2023-02-21] MEDS: DULoxetine 20 MG Cap PO SCH (09:12)
[2023-02-21] MEDS: Bisacodyl 5 MG Tab PO SCH ×2 (09:12→20:35)
[2023-02-21] MEDS: SCOPOLAMINE PATCH CHECK TOP SCH (09:15)
[2023-02-21] MEDS: Cetirizine 10 MG Tab PO SCH (09:15)
[2023-02-21] MEDS: [UNRECOGNIZED DRUG - REMARK] TOP SCH (09:22)
[2023-02-21] MEDS: HYDROmorphone/Normal Saline 6 MG/30 ML PCA Vial IV PRN ×2 (09:26→16:36)
[2023-02-21] MEDS: Pantoprazole 40 MG Tab.CR PO SCH (14:00)
[2023-02-21] MEDS: Sodium Ferric Gluconate Cmplex 250 MG in Sodium Chloride 0.9% 100 ML IV SCH (14:36)
[2023-02-21] MEDS: Acetaminophen 500 MG Tab PO SCH ×2 (14:36→21:00)
[2023-02-21] MEDS: MVI, Adult with Vitamin K 10 ML, Thiamine 200 MG, Zinc/Copper/Manganese/Selenium 1 ML i... IV SCH ×4 (15:46)
[2023-02-21] MEDS: Nicotine 14 MG/24 Hr Patch TRDERM SCH (20:34)
[2023-02-21] MEDS: QUEtiapine 25 MG Tab PO SCH (20:36)
[2023-02-21] MEDS: traZODone 50 MG Tab PO SCH (20:36)
[2023-02-22] MEDS: Dextrose 5%-Lactated Ringers 1,000 ML IV SCH ×2 (02:11→19:27)
[2023-02-22] MEDS: Acetaminophen 500 MG Tab PO SCH ×3 (05:33→21:17)
[2023-02-22] MEDS: diphenhydrAMINE 50 MG/ML SDV IVPUSH PRN ×3 (06:08→21:22)
[2023-02-22] MEDS: HYDROmorphone/Normal Saline 6 MG/30 ML PCA Vial IV PRN ×2 (06:09→15:47)
[2023-02-22] MEDS: Albuterol/Ipratropium 3.0-0.5 MG/3 ML Neb Soln INH SCH ×4 (06:59→21:16)
[2023-02-22] MEDS ORDERED: Meropenem 500 MG SDV ONE (06:59)
[2023-02-22] MEDS ORDERED: Bupivacaine 0.5% 50 ML MDV ONE (07:00)
[2023-02-22] MEDS ORDERED: Lidocaine 1% with EPINEPHrine 1:100,000 50 ML MDV ONE (07:03)
[2023-02-22] MEDS ORDERED: Propofol 200 MG/20 ML SDV ONE ×2 (07:16→09:03)
[2023-02-22] MEDS ORDERED: fentaNYL 100 MCG/2 ML SDV ONE (07:16)
[2023-02-22] MEDS ORDERED: Midazolam 1 MG/ML 2 ML SDV ONE (07:16)
[2023-02-22] MEDS ORDERED: Ropivacaine 28 ML, dexAMETHasone 8 MG, EPINEPHrine 0.4 MG, Sodium Chloride 0.9% 49.6 ML NERVRT SCH ×4 (08:00)
[2023-02-22] MEDS ORDERED: Cyanocobalamin (Vitamin B12) 1,000 MCG/ML SDV IM ONE (09:00)
[2023-02-22] MEDS ORDERED: Lactated Ringers 1,000 ML ONE (09:22)
[2023-02-22] MEDS: [UNRECOGNIZED DRUG - REMARK] TOP SCH (10:20)
[2023-02-22] MEDS: SCOPOLAMINE PATCH CHECK TOP SCH (10:21)
[2023-02-22] MEDS: Bisacodyl 5 MG Tab PO SCH ×2 (10:33→22:59)
[2023-02-22] MEDS: busPIRone 5 MG Tab PO SCH ×3 (10:35→21:18)
[2023-02-22] MEDS: Docusate Sodium 100 MG Cap PO SCH ×2 (10:35→22:59)
[2023-02-22] MEDS: Pantoprazole 40 MG Tab.CR PO SCH (10:35)
[2023-02-22] MEDS: Celecoxib 200 MG Cap PO SCH ×2 (10:35→21:15)
[2023-02-22] MEDS: Cetirizine 10 MG Tab PO SCH (10:42)
[2023-02-22] MEDS: DULoxetine 20 MG Cap PO SCH (10:44)
[2023-02-22] MEDS: QUEtiapine 25 MG Tab PO SCH (21:15)
[2023-02-22] MEDS: Nicotine 14 MG/24 Hr Patch TRDERM SCH (21:16)
[2023-02-22] MEDS: traZODone 50 MG Tab PO SCH (21:16)
[2023-02-23] MEDS: diphenhydrAMINE 50 MG/ML SDV IVPUSH PRN ×5 (02:38→20:33)
[2023-02-23] MEDS: HYDROmorphone/Normal Saline 6 MG/30 ML PCA Vial IV PRN (03:36)
[2023-02-23] MEDS: Dextrose 5%-Lactated Ringers 1,000 ML IV SCH (05:51)
[2023-02-23] MEDS: Acetaminophen 500 MG Tab PO SCH ×2 (05:51→14:23)
[2023-02-23] MEDS: Albuterol/Ipratropium 3.0-0.5 MG/3 ML Neb Soln INH SCH ×4 (07:32→20:32)
[2023-02-23] MEDS: Pantoprazole 40 MG Tab.CR PO SCH (07:34)
[2023-02-23] MEDS: HYDROmorphone 2 MG Tab PO PRN ×3 (08:51→20:32)
[2023-02-23] MEDS: Lactobacillus Rhamnosus GG (Probiotic) Cap PO SCH ×2 (08:52→20:31)
[2023-02-23] MEDS: Celecoxib 200 MG Cap PO SCH ×2 (08:52→20:32)
[2023-02-23] MEDS: DULoxetine 20 MG Cap PO SCH (08:52)
[2023-02-23] MEDS: [UNRECOGNIZED DRUG - REMARK] TOP SCH (08:52)
[2023-02-23] MEDS: busPIRone 5 MG Tab PO SCH ×3 (08:53→20:31)
[2023-02-23] MEDS: Cetirizine 10 MG Tab PO SCH (08:53)
[2023-02-23] MEDS: Nicotine 14 MG/24 Hr Patch TRDERM SCH (20:31)
[2023-02-23] MEDS: traZODone 50 MG Tab PO SCH (20:32)
[2023-02-23] MEDS: QUEtiapine 25 MG Tab PO SCH (20:32)
[2023-02-24] MEDS: Acetaminophen 500 MG Tab PO SCH ×2 (00:07→05:52)
[2023-02-24] MEDS: diphenhydrAMINE 50 MG/ML SDV IVPUSH PRN (03:22)
[2023-02-24] MEDS: HYDROmorphone 2 MG Tab PO PRN ×2 (03:23→10:44)
[2023-02-24] MEDS: Albuterol/Ipratropium 3.0-0.5 MG/3 ML Neb Soln INH SCH ×2 (07:00→11:21)
[2023-02-24] MEDS: Celecoxib 200 MG Cap PO SCH (08:24)
[2023-02-24] MEDS: busPIRone 5 MG Tab PO SCH (08:24)
[2023-02-24] MEDS: Pantoprazole 40 MG Tab.CR PO SCH (08:24)
[2023-02-24] MEDS: Lactobacillus Rhamnosus GG (Probiotic) Cap PO SCH (08:24)
[2023-02-24] MEDS: DULoxetine 20 MG Cap PO SCH (08:25)
[2023-02-24] MEDS: Cetirizine 10 MG Tab PO SCH (08:25)
[2023-02-24] MEDS: [UNRECOGNIZED DRUG - REMARK] TOP SCH (08:26)
[2023-02-24 10:47] VITALS: BP 105/70; PULSE 88
== END 2023-02-24 11:00 | disposition home or self-care (01) | DRG 329 ==
LOC: JP.SDSSCHI 07:53 → JP.MS 11:10
PROVIDERS: ADMIT Surgery; ATTEND Surgery
PROC: 0DB80ZZ Excision of Small Intestine, Open Approach (ICD-10-PCS; principal; 2023-02-20)
PROC: 0DS80ZZ Reposition Small Intestine, Open Approach (ICD-10-PCS; 2023-02-20)
PROC: 0FB20ZZ Excision of Left Lobe Liver, Open Approach (ICD-10-PCS; 2023-02-20)
PROC: 0WQF0ZZ Repair Abdominal Wall, Open Approach (ICD-10-PCS; 2023-02-20)
PROC: 0DQA0ZZ Repair Jejunum, Open Approach (ICD-10-PCS; 2023-02-20)
PROC: 3E0M05Z Introduction of Adhesion Barrier into Peritoneal Cavity, Open Approach (ICD-10-PCS; 2023-02-20)
PROC: 0WQF0ZZ Repair Abdominal Wall, Open Approach (ICD-10-PCS; 2023-02-22)
DX: K91.89 Other postprocedural complications and disorders of digestive system (principal); K56.2 Volvulus; K56.1 Intussusception; K43.0 Incisional hernia with obstruction, without gangrene; K21.9 Gastro-esophageal reflux disease without esophagitis; J45.30 Mild persistent asthma, uncomplicated; F41.1 Generalized anxiety disorder; G47.33 Obstructive sleep apnea (adult) (pediatric); K31.84 Gastroparesis; Z90.49 Acquired absence of other specified parts of digestive tract; Z98.84 Bariatric surgery status; F32.9 Major depressive disorder, single episode, unspecified; G47.00 Insomnia, unspecified; Z79.899 Other long term (current) drug therapy; Z88.1 Allergy status to other antibiotic agents; Z88.0 Allergy status to penicillin; Z88.8 Allergy status to other drugs, medicaments and biological substances; Z91.030 Bee allergy status; Z90.710 Acquired absence of both cervix and uterus; Z90.721 Acquired absence of ovaries, unilateral
CPT/HCPCS: 36415; 71045; 71045-26; 74240; 74240-26; 80053; 82728; 83735; 83880; 84100; 85025; 85027; 86850; 86900; 86901; 88302; 88307; 88313; 93005; 94640; A9270-GY; C1751; C9113; J0131; J0171; J0330; J1100; J1170; J1200; J1642; J2020; J2185; J2250; J2405; J2704; J2710; J2795; J2916; J3010; J3411; J3420; J3490; J7120; J7121; J7620; Q9967

== ENCOUNTER 2024-04-05 18:42 | Emergency (ER) | payer MEDICAID ==
[2024-04-05 20:50] LABS: BASOPHILS ABSOLUTE AUTO 0.03 K/uL (0.00-0.10); BASOPHILS PERCENT AUTO 0.3 % (0.1-1.3); EOSINOPHILS ABSOLUTE AUTO 0.05 K/uL (0.00-0.40); EOSINOPHILS PERCENT AUTO 0.6 % (0.0-5.4); HEMATOCRIT 35.9 % (34.3-46.0); HEMOGLOBIN 12.7 g/dL (11.2-15.5); IMMATURE GRAN ABSOLUTE AUTO 0.03 K/uL (0.00-0.23); IMMATURE GRAN PERCENT AUTO 0.3 % (0.0-0.7); LYMPHOCYTES ABSOLUTE AUTO 1.12 K/uL (0.8-3.3); LYMPHOCYTES PERCENT AUTO 12.9 % (11.4-47.7); MEAN CORPUSCULAR HEMOGLOBIN 31.2 pg (31.6-35.5); MEAN CORPUSCULAR HGB CONC 35.4 g/dL (31.6-35.5); MEAN CORPUSCULAR VOLUME 88.2 fL (81.4-99.0); MONOCYTES ABSOLUTE AUTO 1.04 K/uL (0.20-0.90); NEUTROPHILS ABSOLUTE AUTO 6.39 K/uL (1.0-7.6); NEUTROPHILS PERCENT AUTO 73.9 % (40.0-78.1); PLATELET COUNT,PLT 240 K/uL (130-375); RED BLOOD CELL COUNT 4.07 M/uL (3.77-5.24); WHITE BLOOD CELL COUNT,WBC 8.7 K/uL (3.2-11.0)
[2024-04-05 20:56] LABS: ALANINE AMINOTRANSFERASE,ALT 317 U/L (12-78); ALBUMIN 3.8 g/dL (3.4-5.0); ALKALINE PHOSPHATASE 421 U/L (46-116); ASPARTATE AMNIOTRANSFERASE,AST 451 U/L (15-37); BILIRUBIN TOTAL 0.5 mg/dL (0.2-1.0); BLOOD UREA NITROGEN,BUN 11 mg/dL (7-18); C-REACTIVE PROTEIN 2.41 mg/dL (<0.50); CALCIUM 9.4 mg/dL (8.5-10.1); CARBON DIOXIDE,CO2 26 mmol/L (21-32); CHLORIDE,CL 103 mmol/L (100-108); CREATININE 0.7 mg/dL (0.6-1.0); EST CRCL DRUG DOSING (CG) 91.25 mL/min; ESTIMATED GFR 118 mL/min (>60); GLUCOSE RANDOM 88 mg/dL (74-106); POTASSIUM,K 3.5 mmol/L (3.6-5.2); PROTEIN TOTAL,TP 7.5 g/dL (6.4-8.2); SODIUM,NA 140 mmol/L (140-148)
[2024-04-05 20:57] LABS: ANION GAP 14.5 mmol/L (5.0-14.0)
[2024-04-05] MEDS: Iopamidol 612 MG/ML 100 ML Bottle IV SCH (21:35)
[2024-04-05] MEDS: Sodium Chloride 0.9% 60 ML IV SCH (21:35)
[2024-04-05] MEDS: Sodium Chloride 0.9% 10 ML Syringe FLUSH PRN (21:35)
[2024-04-05] MEDS: Ketorolac 15 MG/ML SDV IVPUSH ONE (22:06)
[2024-04-05] MEDS: Acetaminophen 500 MG Tab PO ONE (22:09)
[2024-04-05] MEDS: Ibuprofen 400 MG Tab PO ONE (22:09)
[2024-04-05 22:39] VITALS: BP 103/68; PULSE 96
== END 2024-04-05 22:37 | disposition home or self-care (01) ==
LOC: JP.ED 18:42
DX: K59.00 Constipation, unspecified (principal); J45.909 Unspecified asthma, uncomplicated; Z90.49 Acquired absence of other specified parts of digestive tract; Z90.710 Acquired absence of both cervix and uterus; Z87.891 Personal history of nicotine dependence; Z79.899 Other long term (current) drug therapy; Z91.030 Bee allergy status; Z88.0 Allergy status to penicillin; Z88.8 Allergy status to other drugs, medicaments and biological substances; Z88.1 Allergy status to other antibiotic agents; Z88.6 Allergy status to analgesic agent; Z88.9 Allergy status to unspecified drugs, medicaments and biological substances; Z88.4 Allergy status to anesthetic agent
CPT/HCPCS: 36415; 74177; 80053; 83605; 83690; 85025; 86140; 99284; A9270; J3490; Q9967

== ENCOUNTER 2024-05-11 13:31 | Emergency (ER) | payer MEDICAID ==
[2024-05-11 14:16] LABS: BASOPHILS ABSOLUTE AUTO 0.04 K/uL (0.00-0.10); BASOPHILS PERCENT AUTO 0.5 % (0.1-1.3); EOSINOPHILS ABSOLUTE AUTO 0.04 K/uL (0.00-0.40); EOSINOPHILS PERCENT AUTO 0.5 % (0.0-5.4); HEMATOCRIT 36.2 % (34.3-46.0); HEMOGLOBIN 12.6 g/dL (11.2-15.5); IMMATURE GRAN ABSOLUTE AUTO 0.03 K/uL (0.00-0.23); IMMATURE GRAN PERCENT AUTO 0.4 % (0.0-0.7); LYMPHOCYTES ABSOLUTE AUTO 1.45 K/uL (0.8-3.3); LYMPHOCYTES PERCENT AUTO 19.6 % (11.4-47.7); MEAN CORPUSCULAR HEMOGLOBIN 31.3 pg (31.6-35.5); MEAN CORPUSCULAR HGB CONC 34.8 g/dL (31.6-35.5); MEAN CORPUSCULAR VOLUME 89.8 fL (81.4-99.0); MONOCYTES ABSOLUTE AUTO 0.57 K/uL (0.20-0.90); MONOCYTES PERCENT AUTO 7.7 % (3.3-12.6); NEUTROPHILS ABSOLUTE AUTO 5.25 K/uL (1.0-7.6); NEUTROPHILS PERCENT AUTO 71.3 % (40.0-78.1); PLATELET COUNT,PLT 277 K/uL (130-375); RED BLOOD CELL COUNT 4.03 M/uL (3.77-5.24); WHITE BLOOD CELL COUNT,WBC 7.4 K/uL (3.2-11.0)
[2024-05-11 14:39] LABS: BLOOD UREA NITROGEN,BUN 8 mg/dL (7-18); CALCIUM 9.1 mg/dL (8.5-10.1); CARBON DIOXIDE,CO2 27 mmol/L (21-32); CHLORIDE,CL 105 mmol/L (100-108); CREATININE 0.8 mg/dL (0.6-1.0); EST CRCL DRUG DOSING (CG) 79.85 mL/min; ESTIMATED GFR 100 mL/min (>60); GLUCOSE RANDOM 88 mg/dL (74-106); POTASSIUM,K 3.5 mmol/L (3.6-5.2); SODIUM,NA 142 mmol/L (140-148)
[2024-05-11 14:40] LABS: ANION GAP 13.5 mmol/L (5.0-14.0); TROPONIN I HIGH SENSITIVITY < 4.0 pg/mL (<=60.3)
[2024-05-11 15:53] VITALS: BP 104/69; PULSE 67
== END 2024-05-11 15:45 | disposition home or self-care (01) ==
LOC: JP.ED 13:31
DX: R07.89 Other chest pain (principal); R51.9 Headache, unspecified; Z79.899 Other long term (current) drug therapy; Z88.0 Allergy status to penicillin; Z88.1 Allergy status to other antibiotic agents; Z88.2 Allergy status to sulfonamides; Z88.5 Allergy status to narcotic agent; Z88.6 Allergy status to analgesic agent; Z88.8 Allergy status to other drugs, medicaments and biological substances; Z91.048 Other nonmedicinal substance allergy status; Z91.018 Allergy to other foods
CPT/HCPCS: 36415; 70450; 80048; 84484; 85025; 99285

== ENCOUNTER 2025-03-05 07:45 | Day surgery (SDC) | payer MEDICAID ==
[~2025-03-05 07:45] MED LIST changes: -Bupivacaine 0.5% 50 ML MDV ONE; -Dexamethasone 4 MG/ML SDV ONE; -Glycopyrrolate 0.2 MG/ML 5 ML MDV ONE; -Lidocaine 1% with EPINEPHrine 1:100,000 50 ML MDV ONE; -Meropenem 500 MG SDV ONE; -Neostigmine Methylsulfate 1 MG/ML 5 ML Syringe ONE; -Ondansetron 4 MG/2 ML SDV ONE; -Rocuronium 50 MG/5 ML Vial ONE; -Succinylcholine 200 MG/10 ML MDV ONE; -fentaNYL 250 MCG/5 ML SDV ONE; +fentaNYL 50 MCG/ML SDV ONE
[2025-03-05] MEDS: Lactated Ringers 1,000 ML IV SCH (08:33)
[2025-03-05 10:21] VITALS: BP 106/68; PULSE 58
== END 2025-03-05 10:35 | disposition home or self-care (01) ==
LOC: JP.SDS 07:45
PROVIDERS: ATTEND Surgery
DX: K22.70 Barrett's esophagus without dysplasia (principal); K22.2 Esophageal obstruction; Z98.0 Intestinal bypass and anastomosis status; Z88.1 Allergy status to other antibiotic agents; Z88.0 Allergy status to penicillin; Z88.8 Allergy status to other drugs, medicaments and biological substances; Z91.030 Bee allergy status; Z79.899 Other long term (current) drug therapy
CPT/HCPCS: 43239; 43249; C1726; J2704; J3010; J7120; 00731-QZ